=== PATIENT | female | born 1935 | race Caucasian/White ===

== ENCOUNTER 2021-05-11 00:03 | Inpatient (IN) | payer MEDICARE, OTHER, SELFPAY ==
[2021-05-10 22:27] VITALS: BP 141/98; PULSE 115; RESP 20; TEMP 36.9; O2SAT 97; BMI 30.4
--- NOTE | 2021-05-10 23:44 | EKG12_ITS ---
Test Reason : DYSRHYTHMIA Blood Pressure : / mmHG Vent. Rate : 126 BPM Atrial Rate : 096 BPM P-R Int : 000 ms QRS Dur : 090 ms QT Int : 316 ms P-R-T Axes : 000 067 -51 degrees QTc Int : 457 ms Atrial fibrillation Abnormal ECG Confirmed by ENIO ZAPIEN, MARK ANTHONY ([id number]), editorial cartoonist HARRIET CALDERON ([id number]) on 05/13/2021 11:03:22 AM Referred By: LILIAM Confirmed By:MARK ANTHONY STEEN MD
--- NOTE | 2021-05-10 23:54 | HP.PCM.HOS_ITS ---
HPI - General General Date of Admission: 05/10/21 HPI Narrative MYAH SOLOMON, is a 85 F is direct admit from [facility] for right hip fracture. Patient fell down on her right side while trying to get out of bed and had severe pain in the right hip area. She was taken to [facility] where she was found to have a right hip intertrochanteric fracture. Patient complained of severe pain over right hip area and its look swollen. Right lower extremity is externally rotated and shortened. Patient denies any previous history of hip or knee fracture or dislocation. Patient has history of A. fib and currently RVR at 140/min. In [facility], EKG showed A. fib with heart rate in the mid 90s. Afebrile. Basic blood work from [facility] reviewed and remarkable abnormal blood sugar 149. Patient is on Xarelto and INR is slightly elevated 1.4. Last dose of Xarelto in the morning today. Chest x-ray portable was done in the ER but report unavailable [facility] Home Medications atorvastatin 40 mg PO QHS 02/07/17 [History Last Taken Unknown] buprenorphine [Butrans] 10 mcg TRANSDERM. QWEEK 02/07/17 [History Last Taken Unknown] diltiazem HCl 240 mg PO DAILY 02/07/17 [History Last Taken Unknown] levetiracetam 500 mg PO BID 02/07/17 [History Last Taken Unknown] rivaroxaban [Xarelto] 20 mg PO DAILY 02/07/17 [History Last Taken Unknown] cholecalciferol (vitamin D3) [Vitamin D3] 25 mcg PO DAILY 05/10/21 [History Last Taken Unknown] furosemide 20 mg PO DAILY 05/10/21 [History Last Taken Unknown] losartan 50 mg PO DAILY 05/10/21 [History Last Taken Unknown] multivitamin,[id number] 1 tab PO DAILYCM 05/10/21 [History Last Taken Un known] nystatin 1 applic TOPICAL BID PRN 05/10/21 [History Last Taken Unknown] Allergy/AdvReac Type Severity Reaction Status Date / Time amiodarone Allergy Rash Verified 02/07/17 18:54 aspirin [From Percodan] Allergy Unknown Verified 02/07/17 18:54 cefdinir Allergy Rash Verified 02/07/17 18:54 ciprofloxacin [From Cipro] Allergy Hives Verified 05/10/21 22:46 ciprofloxacin HCl Allergy Unknown Verified 02/07/17 18:54 [From Cipro] ibuprofen [From Advil] Allergy Unknown Verified 02/07/17 18:54 Iodinated Contrast Media Allergy Hives Verified 05/10/21 22:42 iodine Allergy Rash Verified 02/07/17 18:54 lisinopril Allergy cough Verified 05/10/21 22:46 meperidine HCl [From Demerol] Allergy Vomiting Verified 05/10/21 22:46 methocarbamol [From Robaxin] Allergy Hives Verified 05/10/21 22:46 nitroglycerin Allergy headaches Verified 05/10/21 22:46 oxycodone HCl [From Percodan] Allergy Unknown Verified 02/07/17 18:54 oxycodone terephthalate Allergy Unknown Verified 02/07/17 18:54 [From Percodan] Penicillins Allergy Hives Verified 05/10/21 22:46 verapamil HCl [From Calan] Allergy Unknown Verified 02/07/17 18:54 cephalexin [From Keflex] AdvReac Upset Verified 05/10/21 22:46 Stomach Social History Smoking Status: Never smoker ROS ROS Narrative Constitutional: Reports fatigue and weakness, severe pain in right hip area. HEENT: Reports systems reviewed and no addt'l complaints, except as documented Respiratory/Chest: Denies chest pain, shortness of breath at rest or with exertion Gastrointestinal: Denies coffee ground emesis, hematemesis or vomiting Genitourinary: Denies burning urination or new urinary tract symptoms Musculoskeletal: Right hip severe joint pain and limited range of motion Neurologic: Denies seizure-like activity skin: No ulcer. No rash Endocrinology: Reports systems reviewed and no addt'l complaints, except as documented Hematologic/Lymphatic: Reports systems reviewed and no addt'l complaints, except as documented Rest 12 ROS are negative except as mentioned in HPI Vital Signs Vital Signs Vital Signs: 05/10/21 22:27 05/10/21 22:50 Temperature 98.5 F Temperature Source Oral Pulse Rate 115 H Respiratory Rate 20 H Respiratory Effort Normal Non-Labored Respiratory Depth Normal Respiratory Pattern Normal Blood Pressure 141/98 H Blood Pressure Mean 112 Blood Pressure Source Monitor Blood Pressure Position Semi-Fowlers Blood Pressure Location Left Arm Pulse Ox 97 Oxygen Delivery Method Nasal Cannula Nasal Cannula Oxygen Flow Rate (L/min) 2 2 Weight Weight: 156 lb 1 oz Body Mass Index (BMI) 30.4 Physical Exam Narrative General: Alert, Oriented x3, Cooperative HEENT: Atraumatic, PERRLA, EOMI, Normocephalic Oral: No Gingival or Mucosal Lesions/ Ulcerations Neck: Supple, No JVD, Negative Carotid Bruits Lungs: Air entry diminished in bilateral lung bases. No crepitation/rhonchi Cardiovascular: Regular rate, Regular Rhythm, Normal S1, Normal S2, No murmurs Abdomen: Bowel Sounds Present, Soft, Non Tender, Non-Distended : No renal angle tenderness. No suprapubic tenderness. Extremities: No edema, Capillary Refill Less than 3 Seconds Skin: No rashes, No breakdown Musculoskeletal: No Tenderness to Palpation of Joints or Extremities Neurological: Cranial nerves II-XII grossly intact, DTR 2+/4 and Symmetrical, Neuro grossly intact Psych/Mental Status: In pain. Mild forgetfulness, dementia Assessment & Plan Assessment/Plan (1) Closed intertrochanteric fracture of right hip: QUALIFIERS: Encounter type: initial encounter Fracture alignment: nondisplaced Qualified Code(s): S72.144A - Nondisplaced intertrochanteric fracture of right femur, initial encounter for closed fracture PLAN: This 85-year-old female is direct transfer below the ER for management of right hip intertrochanteric fracture. 1. Closed right hip intertrochanteric fracture: X-ray from [facility] in chart and reviewed. It is reported dorsal angulation of distal fragment of femur. [facility] physician already talked to Dr. Mendes and he accepted the patient and is consulted for the same. Hold Xarelto, last dose was today in the morning. Probably needs 48 hours of holding Xarelto prior to surgery. Pain control. PT and OT evaluation. 2. Perioperative evaluation of left hip fracture: NSQIP surgical risk calculated. Patient has limited exercise capacity and walks within and around the house, about 1000 feet. Has not climbed stairs for long time. Risk for serious complication any complication more than average. UTI above average. Discharged to SNF high. Patient had chest x-ray in [facility] will get the report. 3. Chronic A. fib with RVR: Twelve-lead EKG done here shows A. fib at 126 bpm, QTC 457 seconds. Metoprolol 5 mg IV ordered. Continue home medication Cardizem CD 240 mg daily. Metoprolol 25 mg twice daily ordered. Hold Xarelto for surgery and resume after surgery when bleeding risk is controlled. 4. Hypertension: Currently blood pressure is controlled. Glucose is 149. A1c tomorrow a.m. Patient does not have history of diabetes mellitus. 5. Other comorbidities include decreased functional capacity, degenerative arthritis of knees and dementia: Home medication reconciliation done. Living will/advanced directive/end of life care: Patient does have living will or advanced directive. Her son is power of securities attorney for health. After discussion of benefits/risks procedures involved with full code, DNR CC arrest and DNR CC, the patient elected for all possible resuscitation for 1 time but if she could not be resuscitated or prolonged, prefers DNRCC. Therefore full code. Patient does want artificial life support including intubation, tube feed, ventilator and/chest compression, central venous catheter, vasopressor and DC shock if needed Total time spent in [id number] encounter in discussion of advanced directive 16 minutes. Charges/Coding Visit Charges Inpatient E&M: 50005 Init Hosp L3 Procedures Hospitalists Procedures: 33410 Advncd Care Plan 30 Min
[2021-05-11] VITALS (16 sets, daily range): BP systolic 128–143; BP diastolic 69–98; PULSE 83–119; RESP 16–18; TEMP 36.6–37.1; O2SAT 94–100; BMI 30.4
[2021-05-11] MEDS: Morphine 2 MG/ML Syringe IV ×7 (00:44→21:45)
[2021-05-11] MEDS: Lactated Ringers 1,000 ML 100 ML IV (00:45)
[2021-05-11] MEDS: Metoprolol Tartrate 5 MG/5 ML Vial IV (00:45)
[2021-05-11] MEDS: levETIRAcetam 500 MG Tablet PO ×3 (00:45→21:45)
[2021-05-11] MEDS: 0.9% Saline Lock 10 ML Syringe IV ×4 (00:46→10:59)
[2021-05-11] MEDS: Metoprolol Tartrate 25 MG Tablet PO ×3 (00:54→21:46)
--- NOTE | 2021-05-11 04:21 | NURSING ---
late note: Contacted pt's son when pt was admitted to try to obtain history & home med list but son never returned phone call. Pt says her [id number] takes care of her.
--- NOTE | 2021-05-11 05:55 | ECHOCS_ITS ---
Reason For Study: Pre-OP Procedure This was a 2D Doppler, Color Flow transthoracic echocardiogram. The study was technically difficult. Contrast injection was performed. Exam performed portable in patient room. Left Ventricle Normal LV size. Left ventricular systolic function is normal. The estimated ejection fraction is 60 %. No regional wall motion abnormalities noted. Right Ventricle Normal RV size. Normal systolic function. Atria The left atrium is severely enlarged. The right atrium is moderately enlarged. Mitral Valve Posterior leaflet mitral valve prolapse. Moderately severe (3+) eccentric mitral valve insufficiency. Tricuspid Valve Normal tricuspid valve. Moderate (2+) tricuspid valve insufficiency. Moderate pulmonary hypertension. Pulmonary artery systolic pressure is 60 mmHg. Aortic Valve Trisinus/trileaflet aortic valve. Mild focal aortic valve calcification. Peak aortic valve gradient 21 mmHg. Mean aortic valve gradient 10 mmHg. Pulmonic Valve Normal pulmonic valve. Great Vessels Normal aortic root. The pulmonary artery is normal size. Normal inferior vena cava. Pericardium/Pleural No pericardial effusion. Medication Diluted definity 3ml given slow IV push to enhance endocardial definition. MMode/2D Measurements & Calculations LVIDd: 4.6 cm IVSd: 0.89 cm LVOT diam: 2.0 cm LVIDs: 2.9 cm LVPWd: 1.1 cm FS: 36.8 % LVOT area: 3.3 cm2 LAV(MOD-bp): 116.0 ml LA A4 area: 30.9 cm2 LA dimension(2D): 4.8 cm LAV(MOD-bp) Indexed: 69.1 ml/m2 LAV(MOD-sp2): 101.5 ml LAV(MOD-sp4): 114.5 ml RA A4 area: 22.2 cm2 Doppler Measurements & Calculations MV E max teresita: 130.3 cm/sec Ao V2 max: 227.9 cm/sec LV V1 max: 78.9 cm/sec Ao max P.8 mmHg LV V1 max P.5 mmHg Ao V2 mean: 147.2 cm/sec LV V1 mean P.3 mmHg Ao mean P.2 mmHg LV V1 mean: 52.8 cm/sec Ao V2 VTI: 44.6 cm LV V1 VTI: 16.1 cm HUMZA(I,D): 1.2 cm2 HUMZA(V,D): 1.1 cm2 MR max teresita: 477.1 cm/sec SV(LVOT): 52.5 ml PA V2 max: 64.2 cm/sec MR max P.2 mmHg TR max teresita: 373.4 cm/sec TR max P.8 mmHg ECHO/Echo Complete W/ Contrast Interpretation Summary Normal LV size. Left ventricular systolic function is normal. The estimated ejection fraction is 60 %. The left atrium is severely enlarged. Posterior leaflet mitral valve prolapse. Moderately severe (3+) eccentric mitral valve insufficiency. Moderate pulmonary hypertension. Pulmonary artery systolic pressure is 60 mmHg. Ordering Physician: Pavel Ward Referring Physician: no PCP noted Performed By: Ish Mendoza RCS
[2021-05-11 06:26] LABS: Absolute Lymphocyte Count 1.47 X10^3/uL (0.83-4.51); Absolute Neutrophil Count 4.8 X10^3/uL (2.0-7.7); Basophil# 0.02 X10^3/uL; Basophil% 0.3 % (0-1); Hematocrit 34.6 % (37-47); Hemoglobin 11.2 g/dL (12.0-15.0); Lymphocyte # 1.47 X10^3/ul (0.83-4.51); Lymphocyte % 21.3 % (19-41); Mean Corp Hgb Conc 32.4 g/dL (32-36); Mean Corpuscular Volume 105.2 fL (81-99); Mean Platelet Vol. 10.5 fl (6.2-12.0); Monocyte% 8.7 % (0-10); NRBC Flagged by Analyzer 0 % (0-5); Neutrophil # 4.79 X10^3/uL (2.7-7.7); Neutrophil % 69.3 % (47-70); Platelet Count 133 K/mm3 (150-450); RBC Distribution Width CV 12.8 % (11.6-14.6); RBC Distribution Width SD 49.4 fl (35.1-43.9); Red Blood Count 3.29 M/mm3 (4.2-5.4); White Blood Count 6.9 K/mm3 (4.4-11.0)
[2021-05-11 06:58] LABS: ALB/GLOB Ratio 0.9 RATIO (0.9-2.4); AST(SGOT) 22 U/L (15-37); Alanine Aminotransfer ALT/SGPT 21 U/L (13-56); Albumin, Serum 2.8 g/dL (3.2-5.0); Alkaline Phosphatase 49 U/L (45-117); Anion Gap 3 (5-15); BUN 21 mg/dL (7-18); BUN/Creat Ratio 29.4 RATIO (10-20); Calcium,Total 8.2 mg/dL (8.5-10.1); Chloride 108 mmol/L (98-107); Creatinine, Serum 0.72 mg/dL (0.55-1.02); EST Glomerular Filtration Rate 82 mL/min (>60); Est Glom Filt Rate - Afr Amer 100 mL/min (>60); Estimated Creatinine Clearance 29.01 ml/min; Globulin 3.1 g/dL (2.2-4.2); Glucose 125 mg/dL (74-106); Magnesium 1.7 mg/dL (1.6-2.6); Potassium 4.4 mmol/L (3.5-5.1); Protein, Total 5.9 g/dL (6.4-8.2); Sodium Level 141 mmol/L (136-145); Thyroid Stim Hormone (TSH) 0.33 uIU/mL (0.358-3.74)
--- NOTE | 2021-05-11 07:00 | RAD_ITS ---
STUDY: X-RAY CHEST REASON FOR EXAM: Female, 85 years old. Enlarged cardiomediastinal silhouette. -- Portable CXR outside faint density left CP angle TECHNIQUE: Single AP portable view of the chest. COMPARISON: Comparison is made with prior examination dated 07/05/2013. FINDINGS: EKG electrodes are seen. Stable elevation of the right hemidiaphragm. There is no demonstrated pleural abnormality. There is borderline cardiomegaly. Normal mediastinum and sarah. Normal visualized pulmonary arteries. There is atherosclerotic calcification of the aortic arch with tortuosity. There is demineralization of the osseous structures. There is degenerative osteoarthritis of the bilateral shoulders. There is no demonstrated abnormality of the visualized soft tissue structures of the upper abdomen. RAD/Chest PA and Lateral IMPRESSION: Stable elevation of the right hemidiaphragm. No acute abnormalities. Electronically Signed: Mehul Alva MD at 13:39 EDT , Service support ,
--- NOTE | 2021-05-11 07:50 | RAD_ITS ---
STUDY: X-RAY - PELVIS REASON FOR EXAM: Female, 85 years old. Fracture -- stat TECHNIQUE: One view of the pelvis was obtained. COMPARISON: None. FINDINGS: Nondisplaced comminuted right intertrochanteric fracture. RAD/Pelvis 1 or 2 Views IMPRESSION: Nondisplaced comminuted right intertrochanteric fracture. Electronically Signed: Mehul Alva MD at 9:50 EDT , Service support ,
--- NOTE | 2021-05-11 08:06 | RAD_ITS ---
STUDY: X-RAY - RIGHT FEMUR REASON FOR STUDY: Female, 85 years old. R hip fx, full length femur films TECHNIQUE: 4 view(s) of the femur. COMPARISON: None. FINDINGS: Comminuted nondisplaced intertrochanteric fracture. Soft tissue swelling. There are atherosclerotic vascular calcifications. RAD/Femur Min 2 Views IMPRESSION: Comminuted nondisplaced right intertrochanteric fracture with soft tissue swelling. Electronically Signed: Mehul Alva MD at 15:12 EDT , Service support ,
[2021-05-11 08:18] LABS: Hemoglobin A1c 5.5 % (3.8-5.6)
--- NOTE | 2021-05-11 10:39 | NURSING ---
BUTRANS PATCH DISCUSSED WITH DR WARE AND SHE WANTS IT D/C PT IS GETTING MORPHINE FOR PAIN - PATCH REMOVED AND WASTED WITH DR WARE
--- NOTE | 2021-05-11 10:47 | PCM.PN.HOSP ---
Subjective Subjective Follow-up on right hip fracture: Patient was seen and examined. Right hip pain is worse with movement. Denied any dizziness or palpitations or chest pain Objective Data Objective Data Vital Signs: Vital Signs Temp Pulse Resp BP Pulse Ox 98.3 F 102 H 18 143/91 H 100 05/11/21 08:03 05/11/21 08:03 05/11/21 08:03 05/11/21 08:03 05/11/21 08:03 Oxygen Flow Rate (L/min) 2 Oxygen Delivery Method Nasal Cannula Weight: 70.789 kg Body Mass Index (BMI) 30.4 Intake & Output: Intake and Output for Last 24 Hours 05/09/21 05/10/21 05/11/21 23:59 23:59 23:59 Output Total 500 / 500 Balance -500 / -500 Lab / Micro Data Result Diagrams: 05/11/21 06:00 05/11/21 06:00 Labs: Laboratory Results - last 24 hr 05/11/21 06:00: WBC 6.9, RBC 3.29 L, Hgb 11.2 L, Hct 34.6 L, MCV 105.2 H, MCH 34.0 H, MCHC 32.4, RDW Std Deviation 49.4 H, RDW Coeff of Tim 12.8, Plt Count 133 L, MPV 10.5, Immature Gran % (Auto) 0.400, Neut % (Auto) 69.3, Lymph % (Auto) 21.3, [place] % (Auto) 8.7, Eos % (Auto) 0.0, Baso % (Auto) 0.3, Absolute Neuts (auto) 4.8, Absolute Lymphs (auto) 1.47, Nucleated RBC % 0 05/11/21 06:00: Sodium 141, Potassium 4.4, Chloride 108 H, Carbon Dioxide 30.0, Anion Gap 3 L, BUN 21 H, Creatinine 0.72, Estim Creat Clear Calc 29.01, Est GFR (MDRD) Af Amer 100, Est GFR (MDRD) Non-Af 82, BUN/Creatinine Ratio 29.4 H, Glucose 125 H, Calcium 8.2 L, Magnesium 1.7, Total Bilirubin 1.10 H, AST 22, ALT 21, Alkaline Phosphatase 49, Total Protein 5.9 L, Albumin 2.8 L, Globulin 3.1, Albumin/Globulin Ratio 0.9, TSH 0.33 L 05/11/21 06:00: Hemoglobin A1c 5.5 05/11/21 06:00: APTT 34.0 05/11/21 06:00: Blood Type B POSITIVE, Antibody Screen NEGATIVE Physical Exam Narrative General: Alert, Oriented x3, Cooperative HEENT: Atraumatic, PERRLA, EOMI, Normocephalic Oral: Moist oral mucosa Neck: Supple, No JVD, Negative Carotid Bruits Lungs: Air entry diminished in bilateral lung bases. Cardiovascular: Regular rate, Regular Rhythm, Normal S1, Normal S2, No murmurs Abdomen: Bowel Sounds Present, Soft, Non Tender, Non-Distended Extremities: No edema, tenderness over the right hip, right hip is externally rotated, shorter Assessment & Plan Assessment/Plan (1) Closed intertrochanteric fracture of right hip: QUALIFIERS: Encounter type: initial encounter Fracture alignment: nondisplaced Qualified Code(s): S72.144A - Nondisplaced intertrochanteric fracture of right femur, initial encounter for closed fracture PLAN: 1. Acute comminuted right intertrochanteric femoral fracture, pain is fairly controlled Patient is going for surgery today. ACS NSQIP calculator reviewed showed an above average risk for planned procedure EKG shows chronic atrial fibrillation, with RVR 2. Chronic A. fib with RVR, heart rate is better controlled at time of being seen Continue on Cardizem, metoprolol Continue to hold Xarelto for surgery 3. Hypertension, controlled, continue on losartan, metoprolol, Cardizem 4. Low TSH, will check free T4 and free T3 5. Hypomagnesemia, replaced, recheck in a.m. 6. Rest of her comorbid conditions including dementia, seizure disorder, all remained stable Charges/Coding Visit Charges Inpatient E&M: 65762 Subs Hosp L2
[2021-05-11 11:32] LABS: Free T3 1.7 pg/mL (2.18-3.98); T4 Free Direct 0.99 ng/dL (0.76-1.46)
--- NOTE | 2021-05-11 12:04 | CON.PCM.OR_ITS ---
HPI Consult Data Date of Consult: 05/11/21 HPI Narrative HPI Narrative: JOSEFINA SOLOMON, is a 85 F who presents as a transfer from [place] emergency room yesterday 05/10/2021 after a fall while she was sitting at side of her bed onto her right hip side. X-rays in the emergency department revealed a right intertrochanteric proximal femur fracture. She was transferred to [facility] and admitted under the service of the hospitalist. She denies any other associated injury. Patient is on Xarelto for remote CVA in 2012. Patient denies any head injury or loss consciousness, syncope or presyncope. She denies any numbness or tingling. Patient is a household ambulator with a cane, occasional walker use. For longer distances especially outside the house she does require a wheelchair. She denies any antecedent right hip pain prior to the injury. I was asked to see Josefina by my partner Dr. Mendes to expedite her surgical fixation. Review of systems: 10 point review of systems obtained, negative unless otherwise noted in HPI. [facility] Medical History (Updated 05/11/21 @ 08:38 by Kaylee Tejada) Atrial fibrillation Chronic pain High cholesterol History of stress test Irregular heart beat Kidney stones On home oxygen therapy Osteoporosis Seizures Stroke/cerebrovascular accident Home Medications atorvastatin 40 mg PO QHS 02/07/17 [History Last Taken Unknown] buprenorphine [Butrans] 20 mcg TRANSDERM. QWEEK 02/07/17 [History Last Taken Unknown] diltiazem HCl 240 mg PO DAILY 02/07/17 [History Last Taken Unknown] levetiracetam 500 mg PO BID 02/07/17 [History Last Taken Unknown] rivaroxaban [Xarelto] 20 mg PO DAILY 02/07/17 [History Last Taken Unknown] furosemide 20 mg PO DAILY 05/10/21 [History Last Taken Unknown] losartan 50 mg PO DAILY 05/10/21 [History Last Taken Unknown] multivitamin,fm-[id number] 1 tab PO DAILYCM 05/10/21 [History Last Taken Unknown] Allergy/AdvReac Type Severity Reaction Status Date / Time amiodarone Allergy Rash Verified 02/07/17 18:54 aspirin [From Percodan] Allergy Unknown Verified 02/07/17 18:54 cefdinir Allergy Rash Verified 02/07/17 18:54 ciprofloxacin [From Cipro] Allergy Hives Verified 05/10/21 22:46 ciprofloxacin HCl Allergy Unknown Verified 02/07/17 18:54 [From Cipro] ibuprofen [From Advil] Allergy Unknown Verified 02/07/17 18:54 Iodinated Contrast Media Allergy Hives Verified 05/10/21 22:42 iodine Allergy Rash Verified 02/07/17 18:54 lisinopril Allergy cough Verified 05/10/21 22:46 meperidine HCl [From Demerol] Allergy Vomiting Verified 05/10/21 22:46 methocarbamol [From Robaxin] Allergy Hives Verified 05/10/21 22:46 nitroglycerin Allergy headaches Verified 05/10/21 22:46 oxycodone HCl [From Percodan] Allergy Unknown Verified 02/07/17 18:54 oxycodone terephthalate Allergy Unknown Verified 02/07/17 18:54 [From Percodan] Penicillins Allergy Hives Verified 05/10/21 22:46 verapamil HCl [From Calan] Allergy Unknown Verified 02/07/17 18:54 cephalexin [From Keflex] AdvReac Upset Verified 05/10/21 22:46 Stomach Surgical History (Updated 05/11/21 @ 08:38 by Kaylee Tejada) History of appendectomy S/P hysterectomy Social History Smoking Status: Never smoker Vital Signs Vital Signs Vital Signs: 05/10/21 22:27 05/10/21 22:50 05/11/21 00:22 Temperature 98.5 F Temperature Source Oral Pulse Rate 115 H 119 H Respiratory Rate 20 H Respiratory Effort Normal Non-Labored Respiratory Depth Normal Respiratory Pattern Normal Blood Pressure 141/98 H Blood Pressure Mean 112 Blood Pressure Source Monitor Blood Pressure Position Semi-Fowlers Blood Pressure Location Left Arm Pulse Ox 97 Oxygen Delivery Method Nasal Cannula Nasal Cannula Oxygen Flow Rate (L/min) 2 2 05/11/21 00:45 05/11/21 00:54 05/11/21 03:22 Temperature Temperature Source Pulse Rate 119 H 109 H 99 Respiratory Rate Respiratory Effort Respiratory Depth Respiratory Pattern Blood Pressure 141/98 H Blood Pressure Mean Blood Pressure Source Blood Pressure Position Blood Pressure Location Pulse Ox Oxygen Delivery Method Oxygen Flow Rate (L/min) 05/11/21 04:03 05/11/21 07:54 05/11/21 08:03 Temperature 98.8 F 98.3 F Temperature Source Oral Oral Pulse Rate 95 91 102 H Respiratory Rate 18 18 Respiratory Effort Respiratory Depth Respiratory Pattern Blood Pressure 134/89 H 143/91 H Blood Pressure Mean 104 108 Blood Pressure Source Monitor Monitor Blood Pressure Position Semi-Fowlers Semi-Fowlers Blood Pressure Location Right Arm Left Arm Pulse Ox 99 100 Oxygen Delivery Method Nasal Cannula Nasal Cannula Oxygen Flow Rate (L/min) 2 2 05/11/21 08:15 05/11/21 10:53 Temperature 97.8 F Temperature Source Oral Pulse Rate 94 Respiratory Rate 18 Respiratory Effort Normal Respiratory Depth Normal Respiratory Pattern Normal Blood Pressure 128/71 H Blood Pressure Mean 90 Blood Pressure Source Monitor Blood Pressure Position Semi-Fowlers Blood Pressure Location Left Arm Pulse Ox 94 Oxygen Delivery Method Nasal Cannula Nasal Cannula Oxygen Flow Rate (L/min) 2 3 Weight Weight: 156 lb 1 oz Body Mass Index (BMI) 30.4 Physical Exam Narrative General -A&Ox3, NAD, appears stated age. Vital signs stable, afebrile. Respiratory -normal work of breathing, no intercostal retractions. CV -pulses irregular, brisk capillary refill ?4 limbs. Abdomen-soft, nontender, nondistended. No guarding, rigidity, rebound tendern ess. Musculoskeletal/neurologic -full range of motion nontender throughout bilateral upper extremities, left lower extremity with full sensation and strength in all dermatomes and myotomes. No midline cervical tenderness. Right lower extremity-right lower extremity shortened, abducted, and externally rotated. Pain with logroll the right hip. Nontender throughout the right knee, femoral shaft, tibial shaft and left foot/ankle. Brisk capillary refill. Sensation intact light touch L3-S1 dermatomes. DF, PF, EHL intact. DP, PT 2+. Pelvis is stable, nontender. Skin is intact without lacerations, abrasions. No ecchymosis noted. Lab / Micro Data Result Diagrams: 05/11/21 06:00 05/11/21 06:00 Labs: Laboratory Results - last 24 hr 05/11/21 06:00: WBC 6.9, RBC 3.29 L, Hgb 11.2 L, Hct 34.6 L, MCV 105.2 H, MCH 34.0 H, MCHC 32.4, RDW Std Deviation 49.4 H, RDW Coeff of Tim 12.8, Plt Count 133 L, MPV 10.5, Immature Gran % (Auto) 0.400, Neut % (Auto) 69.3, Lymph % (Auto) 21.3, [place] % (Auto) 8.7, Eos % (Auto) 0.0, Baso % (Auto) 0.3, Absolute Neuts (auto) 4.8, Absolute Lymphs (auto) 1.47, Nucleated RBC % 0 05/11/21 06:00: Sodium 141, Potassium 4.4, Chloride 108 H, Carbon Dioxide 30.0, Anion Gap 3 L, BUN 21 H, Creatinine 0.72, Estim Creat Clear Calc 29.01, Est GFR (MDRD) Af Amer 100, Est GFR (MDRD) Non-Af 82, BUN/Creatinine Ratio 29.4 H, Glucose 125 H, Calcium 8.2 L, Magnesium 1.7, Total Bilirubin 1.10 H, AST 22, ALT 21, Alkaline Phosphatase 49, Total Protein 5.9 L, Albumin 2.8 L, Globulin 3.1, A lbumin/Globulin Ratio 0.9, TSH 0.33 L 05/11/21 06:00: Hemoglobin A1c 5.5 05/11/21 06:00: APTT 34.0 05/11/21 06:00: Blood Type B POSITIVE, Antibody Screen NEGATIVE 05/11/21 06:00: Free T4 0.99, Free T3 pg/dL 1.7 L X-rays reviewed from outside hospital and obtained right femur films multiple views from [facility] 05/11/2021. Agree with radiology interpretation. Per my interpretation, patient has a comminuted right intertrochanteric proximal femur fracture in varus alignment, shortened, and externally rotated. No subtrochanteric propagation. Remainder of the femoral shaft is unremarkable. Soft tissues are unremarkable. Assessment & Plan Assessment/Plan (1) Closed intertrochanteric fracture of right hip: QUALIFIERS: Encounter type: initial encounter Fracture alignment: nondisplaced Qualified Code(s): S72.144A - Nondisplaced intertrochanteric fracture of right femur, initial encounter for closed fracture PLAN: Patient has a closed, displaced, comminuted intertrochanteric proximal femur fracture of the right femur. Closed injury, neurovascularly intact. Plan for operative intervention in the form of right femur cephalomedullary n ailing tomorrow 05/12/2021 with myself. Holding Xarelto. Would recommended waiting 48 hours from last dose, which would put us at 05/12/2021 for surgical intervention. The risks, benefits, and alternatives to the procedure including but not limited to bleeding, infection, loss of life or limb, risk of anesthesia, malunion, nonunion, hardware failure, persistent disability, VTE, wound complications were reviewed with the patient. She expressed verbal understanding. Informed consent obtained. Informed consent for blood transfusion was also obtained. Plan to proceed with surgical fixation tomorrow 05/12/2021. Pain control, bedrest Clindamycin 900 mg on-call to the OR for preoperative antibiotics Type and screen N.p.o. after midnight Thank you for the consultation. Will continue to follow in the acute postoperative period. (2) Hypertension: (3) Anxiety: (4) Hyperlipidemia:
--- NOTE | 2021-05-11 12:15 | CASEMGMT ---
RN CM Face to Face with patient for initial transition planning/care coordination assessment. RN CM introduced self and role at [facility]. Patient lying in bed, alert and oriented, family at bedside. Patient willing to participate in assessment and is able to answer all questions appropriately. Care providers, pharmacy, and demographics verified. Patient wishes to discharge home if able but willing to go to rehab unit if needed. SW updated. Patient states she has no further needs or concerns at this time. CM to follow for discharge planning needs that may arise. PCP: Chidi Orlando Specialists: Jamel, cardiovascular surgeon; Hilary, neurologist; bartolo Nance [facility] Pres[facility] Benefit: yes Living Will/HPOA: Tony Martinez HPOA LNOK: DONAVAN house Living Arrangements: Patient lives with son and DONAVAN in a single story home, 2 steps and railing to enter the home. Patient states she was independent at home. Transportation: [place] [employer] DME/HHC: Patient has cane, walker, raised toilet, shower chair, grab bars, oxygen concentrator through [facility] at home. Patient has previously been to rehab unit. Disposition Plan: TBD, HHC vs RU, pending course of treatment and progress with therapy. Aleena DARBYN, RN, CM
[2021-05-11] MEDS: Senna/Docusate Sodium 1 Tablet 2 TABLET PO ×2 (13:38→21:46)
[2021-05-11] MEDS: Losartan Potassium 50 MG Tablet PO (13:42)
[2021-05-11] MEDS: Furosemide 20 MG Tablet PO (13:42)
[2021-05-11] MEDS: Cholecalciferol (VIT D3) 25 MCG TABLET (1,000 UNITS) PO (13:42)
--- NOTE | 2021-05-11 15:00 | CASEMGMT ---
Social Work Note SW updated that pt is agreeable to [facility] RU. REGINA placed a call to Leslie with RU and provided referral. Leslie states physician would like to see how pt does with PT/OT after surgery. Pt is not having surgery until tomorrow. SW to continue to follow. Plan: TBD. RU vs SNF Aleena Baker VAT CLEANER, MERCHANDISER
[2021-05-11] MEDS: dilTIAZem CD 240 MG Capsule PO (16:54)
[2021-05-11] MEDS: Heparin Injection (Vial) 5,000 UNIT/ML VIAL 5000 UNIT SC ×2 (16:57→21:46)
--- NOTE | 2021-05-11 19:35 | NURSING ---
emergency documentation effective now
[2021-05-11] MEDS: Atorvastatin Calcium 40 MG Tablet PO (21:45)
[2021-05-12] VITALS (26 sets, daily range): BP systolic 76–121; BP diastolic 48–71; PULSE 70–96; RESP 16–18; TEMP 36.2–37; O2SAT 77–100; BMI 30.4
[2021-05-12 06:11] LABS: Absolute Lymphocyte Count 1.51 X10^3/uL (0.83-4.51); Absolute Neutrophil Count 4.6 X10^3/uL (2.0-7.7); Basophil# 0.02 X10^3/uL; Basophil% 0.3 % (0-1); Eosinophil# 0.05 X10^3/uL; Eosinophils% 0.8 % (0-5); Hematocrit 32.3 % (37-47); Hemoglobin 10.5 g/dL (12.0-15.0); Lymphocyte # 1.51 X10^3/ul (0.83-4.51); Lymphocyte % 22.7 % (19-41); Mean Corp Hgb Conc 32.5 g/dL (32-36); Mean Corpuscular Hgb 34.5 pg (27.0-32.0); Mean Corpuscular Volume 106.3 fL (81-99); Mean Platelet Vol. 10.6 fl (6.2-12.0); Monocyte# 0.51 X10^3/uL; Monocyte% 7.7 % (0-10); NRBC Flagged by Analyzer 0 % (0-5); Neutrophil # 4.55 X10^3/uL (2.7-7.7); Neutrophil % 68.2 % (47-70); Platelet Count 120 K/mm3 (150-450); RBC Distribution Width CV 12.7 % (11.6-14.6); RBC Distribution Width SD 49.8 fl (35.1-43.9); Red Blood Count 3.04 M/mm3 (4.2-5.4); White Blood Count 6.7 K/mm3 (4.4-11.0)
[2021-05-12 06:45] LABS: ALB/GLOB Ratio 0.9 RATIO (0.9-2.4); AST(SGOT) 23 U/L (15-37); Alanine Aminotransfer ALT/SGPT 20 U/L (13-56); Albumin, Serum 2.7 g/dL (3.2-5.0); Alkaline Phosphatase 44 U/L (45-117); Anion Gap 5 (5-15); BUN 17 mg/dL (7-18); BUN/Creat Ratio 26.7 RATIO (10-20); Calcium,Total 8.1 mg/dL (8.5-10.1); Chloride 104 mmol/L (98-107); Creatinine, Serum 0.64 mg/dL (0.55-1.02); EST Glomerular Filtration Rate 94 mL/min (>60); Est Glom Filt Rate - Afr Amer 114 mL/min (>60); Estimated Creatinine Clearance 29.01 ml/min; Globulin 3.1 g/dL (2.2-4.2); Glucose 123 mg/dL (74-106); Magnesium 1.8 mg/dL (1.6-2.6); Potassium 3.6 mmol/L (3.5-5.1); Protein, Total 5.8 g/dL (6.4-8.2); Sodium Level 138 mmol/L (136-145)
[2021-05-12] MEDS: levETIRAcetam 500 MG Tablet PO ×2 (09:16→21:25)
--- NOTE | 2021-05-12 11:07 | PN.ORTHO_ITS ---
Subjective Subjective Patient seen and examined. Denies any new complaints. All questions regarding surgery. Denies any fevers, chills, nausea vomiting, chest pain or shortness of breath. N.p.o. since midnight. Objective Data Objective Data Vital Signs: Vital Signs Temp Pulse Resp BP Pulse Ox 98.0 F 80 18 117/64 98 05/12/21 09:22 05/12/21 09:22 05/12/21 09:22 05/12/21 09:22 05/12/21 09:22 Oxygen Flow Rate (L/min) 2 Oxygen Delivery Method Nasal Cannula Weight: 156 lb 1 oz Body Mass Index (BMI) 30.4 Intake & Output: Intake and Output for Last 24 Hours 05/10/21 05/11/21 05/12/21 23:59 23:59 23:59 Intake Total 1798.25 / 1798.25 145.75 / 145.75 Output Total 2024 / 2024 100 / 100 Balance -226.75 / -226.75 45.75 / 45.75 Lab / Micro Data Result Diagrams: 05/12/21 05:34 05/12/21 05:34 Labs: Laboratory Results - last 24 hr 05/11/21 06:00: Free T4 0.99, Free T3 pg/dL 1.7 L 05/12/21 05:34: WBC 6.7, RBC 3.04 L, Hgb 10.5 L, Hct 32.3 L, MCV 106.3 H, MCH 34.5 H, MCHC 32.5, RDW Std Deviation 49.8 H, RDW Coeff of Tim 12.7, Plt Count 120 L, MPV 10.6, Immature Gran % (Auto) 0.300, Neut % (Auto) 68.2, Lymph % (Auto) 22.7, [place] % (Auto) 7.7, Eos % (Auto) 0.8, Baso % (Auto) 0.3, Absolute Neuts (auto) 4.6, Absolute Lymphs (auto) 1.51, Nucleated RBC % 0 05/12/21 05:34: Sodium 138, Potassium 3.6, Chloride 104, Carbon Dioxide 29.0, Anion Gap 5, BUN 17, Creatinine 0.64, Estim Creat Clear Calc 29.01, Est GFR (MDRD) Af Amer 114, Est GFR (MDRD) Non-Af 94, BUN/Creatinine Ratio 26.7 H, Glucose 123 H, Calcium 8.1 L, Magnesium 1.8, Total Bilirubin 1.20 H, AST 23, ALT 20, Alkaline Phosphatase 44 L, Total Protein 5.8 L, Albumin 2.7 L, Globulin 3.1, Albumin/Globulin Ratio 0.9 Radiography Diagnostic Testing: Radiology Impression Echocardiogram 05/11/21 05:55 Interpretation Summary Normal LV size. Left ventricular systolic function is normal. The estimated ejection fraction is 60 %. The left atrium is severely enlarged. Posterior leaflet mitral valve prolapse. Moderately severe (3+) eccentric mitral valve insufficiency. Moderate pulmonary hypertension. Pulmonary artery systolic pressure is 60 mmHg. Ordering Physician: Pavel Ward Referring Physician: no PCP noted Performed By: Ish Mendoza RCS Chest X-Ray 05/11/21 07:00 IMPRESSION: Stable elevation of the right hemidiaphragm. No acute abnormalities. Electronically Signed: Mehul Alva MD at 13:39 EDT , Service support , Pelvis X-Ray 05/11/21 07:50 IMPRESSION: Nondisplaced comminuted right intertrochanteric fracture. Electronically Signed: Mehul Alva MD at 9:50 EDT , Service support , Femur X-Ray 05/11/21 08:06 IMPRESSION: Comminuted nondisplaced right intertrochanteric fracture with soft tissue swelling. Electronically Signed: Mehul Alva MD at 15:12 EDT , Service support , Physical Exam Narrative General - A&Ox3, NAD. VSS/AF Right lower extremity -right lower extremity shortened, externally rotated, abducted. SILT Sural, Saphenous, SPN, DPN, Tibial N. distributions. DP, PT 2+. BCR. DF, PF, EHL /. No calf TTP. Assessment & Plan Assessment/Plan (1) Closed intertrochanteric fracture of right hip: QUALIFIERS: Encounter type: initial encounter Fracture alignment: nondisplaced Qualified Code(s): S72.144A - Nondisplaced intertrochanteric fracture of right femur, initial encounter for closed fracture PLAN: N.p.o., informed consent obtained and placed in the chart. Clindamycin ordered preop, type and screen ordered. We again reviewed the procedure, all questions were answered to patient's satisfaction. Further recommendations pending postop.
--- NOTE | 2021-05-12 11:07 | CASEMGMT ---
Social Work Note REGINA spoke with Leslie with TCU/RU, pt is more appropriate for TCU not RU. Pt having surgery today. REGINA will follow up with pt tomorrow. Plan: GEENA Baker MULTIPLEX OPERATOR, COMBUSTION ANALYST
--- NOTE | 2021-05-12 11:35 | RAD_ITS ---
STUDY: X-RAY - PELVIS AND RIGHT HIP REASON FOR EXAM: Female, 85 years old. IM RODDING, INTERTAN NAIL GARCIA AND NEPHEW TECHNIQUE: 3 views of the pelvis and hip intraoperatively. COMPARISON: None. FINDINGS: Intraoperative imaging provided for intramedullary flakito fixation and screw fixation of the intertrochanteric fracture. There is good alignment. RAD/Hip Min 2 Views (Portable) IMPRESSION: Status post ORIF of the right intertrochanteric fracture. There is good alignment. Electronically Signed: Mehul Alva MD at 15:44 EDT , Service support ,
--- NOTE | 2021-05-12 12:46 | OP.PCM_ITS ---
Report of Operation Date of Procedure: 05/12/21 Description of Surgical Findings:: Preoperative diagnosis: Right comminuted intertrochanteric proximal femur fracture Postoperative diagnosis: Right comminuted intertrochanteric proximal femur fracture Procedure: Treatment of intertrochanteric hip fracture with intramedullary nail right femur Surgeon: Abdullahi Lee DO Anesthesia: General LMA Anesthesiologist: Dr. Drummond Complications: None apparent Drains: None Estimated blood loss: 250 cc Urinary output: Minimal cc IV fluids: 600 cc crystalloid Specimens: None Indications: This is an 85-year-old female who sustained a ground-level fall onto her right side, mechanical nature while she was sitting on side of her bed. She denies any presyncopal or syncopal episodes. Denies loss consciousness or head trauma. She was brought to the [place] emergency department on 05/10/2021 where x-rays at that time revealed a right intertrochanteric proximal femur fracture. Patient was then transferred to [facility] for definitive fixation of her hip fracture. My partner, Dr. Mendes, was director [facility] and agreed to see the patient. She was admitted under the service of the hospitalist. To expedite her surgery, my partner Dr. Mendes, asked me to see the patient due to surgeon availability. Patient does take Xarelto for a remote CVA. Her last dose was 05/10/2021 morning time. We decided to wait 48 hours to safely perform cephalomedullary nailing of the right femur. I reviewed the pro cedure with the patient and her family who are at bedside. We discussed the risks, benefits, and alternatives procedure. The risks include but are not limited to bleeding, infection, malunion, nonunion, failure of orthopedic hardware, need for additional surgery, persistent pain, persistent disability, need for additional assistive devices postoperatively, neurovascular injury, risk of anesthesia, loss of life or limb. Informed consent was obtained and patient agreed to proceed. Surgical implants: [employer] TriGen InterTAN 10 mm x 18 cm 125 degree right, 95 mm lag screw, 90 mm compression screw, TriGen L-P screw 35 mm Description of procedure: Prior to the procedure, patient was brought to the preoperative holding area where patient was identified by name, medical record number and date of . I confirmed the side, site, operation to be performed with the patient. Informed consent was confirmed, All questions were answered to patient satisfaction. The operative extremity was marked. She was also seen by anesthesia staff and anesthesia consent obtained. At time of the operative procedure, pt was brought to the operative suite. General anesthesia was induced on the hospital bed and LMA placed. After adequate anesthesia and securing the tube, patient was then positioned supine on a fracture table. The operative foot was well-padded and placed in a ski boot attached to the traction unit on the fracture table. The non operative leg was well padded, extended and secured to the axial bar of the table. A well-padded perineal post was placed and the right upper extremity was brought across patient's torso and secured. A reduction maneuver was applied to the operative leg with traction, internal rotation, adduction. Fluoroscopy was used to confirm an appropriate reduction. After close reduction, this confirmed to me that this appears to be stable intertrochanteric proximal femur fracture pattern allowing for a short cephalomedullary nail fixation strategy. We then prepped and draped the operative lower extremity of normal sterile orthopedic fashion. A timeout was performed with all parties in attendance in agreement of the side, site, operation to be performed. We elected to proceed. 900 mg clindamycin was administered prior to incision by the anesthesia staff. Fluoroscopy was used to confirm the level of the incision approximately 4 fingerbreadths proximal to the tip of the greater trochanter in line with the femoral shaft. We sharply incised the skin with a 10 blade scalpel carried an incision sharply through the subcutaneous tissue past the IT band to the level of the greater trochanter. A starting pin was utilized and under fluoroscopic guidance placed at the tip of the greater trochanter in line with the femoral shaft on the lateral view. We then, on power, passed the guidepin into the intramedullary canal. A opening reamer was then placed over top of the guide pin and soft tissue protector placed. We utilized the opening reamer to establish entry into the intramedullary canal. The guide pin was removed. We chose our final nail to be 10 mm x 18 cm 125 degrees on the right. The nail was assembled on the back table. The nail was then placed through the most proximal wound into the entry hole previously opened. We impacted the nail to an appropriate depth. The targeting guide for the lag screw and compression screw was attached to the handle of the nail. Skin was sharply incised on the lateral thigh and the targeting sleeve placed down to bone. The drill pin for the leg screw was then directed into the femoral head to a level less than 25 mm tip to apex distance on the AP and lateral projections. An appropriately sized lag screw of 95 mm was measured . We then reamed for the compression screw past the level of the fracture. A derotation bar was placed and we inserted the cannulated 95 mm lag screw over the drill pin. We again confirmed appropriate placement on fluoroscopy. The compression screw was then placed under power and tightened under with a manual local company hazmat driver after traction removed from the left lower extremity. We used fluoroscopy to view the amount of compression across the fracture site. After maxing out the compression, we were content with our reduction and elected to proceed with interlocking screw placement. The drill sleeve was removed as well as the guidepin. We then made a lateral thigh incision for the interlocking screw through the static slot of the nail. The femur was then drilled bicortically through the isthmus and we measured 35 mm for an appropriately sized dynamic interlocking screw. The drill was then removed and we placed the 35 mm screw with good cortical fixation. Final fluoroscopic images were obtained. Wounds were copiously irrigated with normal saline solution. Deep tissues were closed with 0 Vicryl suture and subcutaneous tissue closed with 2-0 Vicryl suture. Skin was finally closed with bradley. Sterile compression dressings were applied to the wounds. Patient was then taken out of traction entirely and removed from both traction boot and well leg goff. Patient was transferred back to his hospital bed in stable condition and extubated safely in the operative suite. Patient was then transferred to PACU in stable condition. Post Operative Plan: Weightbearing: Weightbearing as tolerated right lower extremity Antibiotics: Clindamycin 600 mg x 3 doses DVT Prophylaxis: Plan to restart Xarelto tomorrow morning [place]: Okay to remove from my perspective on postoperative day #1, defer to hospitalist Dressing: Dry sterile dressing changes as needed for saturation and daily X-Rays: We will obtain in office at 2-week follow-up Pain Medication: Prescription for Heath sent to patient pharmacy Follow-up: Follow-up with myself in 2 weeks for wound check and x-rays
--- NOTE | 2021-05-12 13:24 | PCM.PN.HOSP ---
Subjective Subjective Patient was seen and examined. Patient was sitting up in a chair having her dinner. Her pain is fairly controlled Objective Data Objective Data Vital Signs: Vital Signs Temp Pulse Resp BP Pulse Ox 97.6 F L 70 16 121/71 H 100 05/12/21 12:30 05/12/21 12:30 05/12/21 12:30 05/12/21 12:30 05/12/21 12:30 Oxygen Flow Rate (L/min) 2 Oxygen Delivery Method Room Air Weight: 70.789 kg Body Mass Index (BMI) 30.4 Intake & Output: Intake and Output for Last 24 Hours 05/10/21 05/11/21 05/12/21 23:59 23:59 23:59 Intake Total 1798.25 / 1798.25 251.75 / 251.75 Output Total 2024 / 2024 100 / 100 Balance -226.75 / -226.75 151.75 / 151.75 Lab / Micro Data Result Diagrams: 05/12/21 05:34 05/12/21 05:34 Labs: Laboratory Results - last 24 hr 05/12/21 05:34: WBC 6.7, RBC 3.04 L, Hgb 10.5 L, Hct 32.3 L, MCV 106.3 H, MCH 34.5 H, MCHC 32.5, RDW Std Deviation 49.8 H, RDW Coeff of Tim 12.7, Plt Count 120 L, MPV 10.6, Immature Gran % (Auto) 0.300, Neut % (Auto) 68.2, Lymph % (Auto) 22.7, [place] % (Auto) 7.7, Eos % (Auto) 0.8, Baso % (Auto) 0.3, Absolute Neuts (auto) 4.6, Absolute Lymphs (auto) 1.51, Nucleated RBC % 0 05/12/21 05:34: Sodium 138, Potassium 3.6, Chloride 104, Carbon Dioxide 29.0, Anion Gap 5, BUN 17, Creatinine 0.64, Estim Creat Clear Calc 29.01, Est GFR (MDRD) Af Amer 114, Est GFR (MDRD) Non-Af 94, BUN/Creatinine Ratio 26.7 H, Glucose 123 H, Calcium 8.1 L, Magnesium 1.8, Total Bilirubin 1.20 H, AST 23, ALT 20, Alkaline Phosphatase 44 L, Total Protein 5.8 L, Albumin 2.7 L, Globulin 3.1, Albumin/Globulin Ratio 0.9 Radiography Diagnostic Testing: Radiology Impression Echocardiogram 05/11/21 05:55 Interpretation Summary Normal LV size. Left ventricular systolic function is normal. The estimated ejection fraction is 60 %. The left atrium is severely enlarged. Posterior leaflet mitral valve prolapse. Moderately severe (3+) eccentric mitral valve insufficiency. Moderate pulmonary hypertension. Pulmonary artery systolic pressure is 60 mmHg. Ordering Physician: Pavel Ward Referring Physician: no PCP noted Performed By: Ish Mendoza RCS Chest X-Ray 05/11/21 07:00 IMPRESSION: Stable elevation of the right hemidiaphragm. No acute abnormalities. Electronically Signed: Mehul Alva MD at 13:39 EDT , Service support , Pelvis X-Ray 05/11/21 07:50 IMPRESSION: Nondisplaced comminuted right intertrochanteric fracture. Electronically Signed: Mehul Alva MD at 9:50 EDT , Service support , Femur X-Ray 05/11/21 08:06 IMPRESSION: Comminuted nondisplaced right intertrochanteric fracture with soft tissue swelling. Electronically Signed: Mehul Alva MD at 15:12 EDT , Service support , Physical Exam Narrative General: Alert, Oriented x3, Cooperative, on 2L oxygen HEENT: Atraumatic, PERRLA, EOMI, Normocephalic Oral: Moist oral mucosa Neck: Supple, No JVD, Negative Carotid Bruits Lungs: Air entry diminished in bilateral lung bases. Cardiovascular: Regular rate, Regular Rhythm, Normal S1, Normal S2, No murmurs Abdomen: Bowel Sounds Present, Soft, Non Tender, Non-Distended Extremities: No edema, tenderness over the right hip, dressing is intact Assessment & Plan Assessment/Plan (1) Closed intertrochanteric fracture of right hip: QUALIFIERS: Encounter type: initial encounter Fracture alignment: nondisplaced Qualified Code(s): S72.144A - Nondisplaced intertrochanteric fracture of right femur, initial encounter for closed fracture PLAN: 1. POD #0, s/p right hip replacement for acute comminuted right intertrochanteric femoral fracture, pain is fairly controlled Pain is fairly controlled, continue with pain control 2. Chronic A. fib with RVR, heart rate is better controlled at time of being seen Continue on Cardizem, metoprolol Continue to hold Xarelto for surgery 3. Hypertension, controlled, continue on losartan, metoprolol, Cardizem 4. 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 5. Hypomagnesemia, replaced 6. Rest of her comorbid conditions including dementia, seizure disorder, all remained stable Charges/Coding Visit Charges Inpatient E&M: 79592 Subs Hosp L2
[2021-05-12] MEDS: Cholecalciferol (VIT D3) 25 MCG TABLET (1,000 UNITS) PO (15:41)
[2021-05-12] MEDS: Senna/Docusate Sodium 1 Tablet 2 TABLET PO ×2 (15:41→21:25)
[2021-05-12] MEDS: Acetaminophen 500 MG Tablet 1000 MG PO ×2 (15:46→21:25)
[2021-05-12] MEDS: oxyCODONE 5 MG Tablet PO (17:12)
[2021-05-12] MEDS: Rivaroxaban 20 MG Tablet PO (17:12)
[2021-05-12] MEDS: 0.9% Normal Saline 1,000 ML 100 ML IV (20:26)
[2021-05-12] MEDS: Atorvastatin Calcium 40 MG Tablet PO (21:24)
[2021-05-13] VITALS (9 sets, daily range): BP systolic 103–116; BP diastolic 61–69; PULSE 77–94; RESP 18; TEMP 36.6–37; O2SAT 94–100
[2021-05-13] MEDS: Acetaminophen 500 MG Tablet 1000 MG PO ×2 (05:58→13:36)
[2021-05-13] MEDS: 0.9% Normal Saline 1,000 ML 100 ML IV (05:58)
[2021-05-13 08:17] LABS: Absolute Lymphocyte Count 0.71 X10^3/uL (0.83-4.51); Absolute Neutrophil Count 4.7 X10^3/uL (2.0-7.7); Hematocrit 26.5 % (37-47); Hemoglobin 8.4 g/dL (12.0-15.0); Lymphocyte # 0.71 X10^3/ul (0.83-4.51); Lymphocyte % 12.1 % (19-41); Mean Corp Hgb Conc 31.7 g/dL (32-36); Mean Corpuscular Hgb 33.7 pg (27.0-32.0); Mean Corpuscular Volume 106.4 fL (81-99); Mean Platelet Vol. 10.7 fl (6.2-12.0); Monocyte# 0.45 X10^3/uL; Monocyte% 7.7 % (0-10); NRBC Flagged by Analyzer 0 % (0-5); Neutrophil # 4.67 X10^3/uL (2.7-7.7); Neutrophil % 79.9 % (47-70); Platelet Count 103 K/mm3 (150-450); RBC Distribution Width CV 12.6 % (11.6-14.6); RBC Distribution Width SD 49.4 fl (35.1-43.9); Red Blood Count 2.49 M/mm3 (4.2-5.4); White Blood Count 5.9 K/mm3 (4.4-11.0)
[2021-05-13 08:33] LABS: ALB/GLOB Ratio 0.7 RATIO (0.9-2.4); AST(SGOT) 24 U/L (15-37); Alanine Aminotransfer ALT/SGPT 19 U/L (13-56); Albumin, Serum 2.2 g/dL (3.2-5.0); Alkaline Phosphatase 37 U/L (45-117); Anion Gap 5 (5-15); BUN 21 mg/dL (7-18); BUN/Creat Ratio 31.7 RATIO (10-20); Calcium,Total 7.9 mg/dL (8.5-10.1); Chloride 110 mmol/L (98-107); Creatinine, Serum 0.66 mg/dL (0.55-1.02); EST Glomerular Filtration Rate 90 mL/min (>60); Est Glom Filt Rate - Afr Amer 109 mL/min (>60); Estimated Creatinine Clearance 29.01 ml/min; Globulin 3.2 g/dL (2.2-4.2); Glucose 139 mg/dL (74-106); Potassium 4.1 mmol/L (3.5-5.1); Protein, Total 5.4 g/dL (6.4-8.2); Sodium Level 141 mmol/L (136-145)
[2021-05-13] MEDS: Metoprolol Tartrate 25 MG Tablet PO (10:07)
[2021-05-13] MEDS: Senna/Docusate Sodium 1 Tablet 2 TABLET PO (10:08)
[2021-05-13] MEDS: Furosemide 20 MG Tablet PO (10:08)
[2021-05-13] MEDS: levETIRAcetam 500 MG Tablet PO (10:08)
[2021-05-13] MEDS: Multivitamins,Ther W-Minerals Tablet 1 TABLET PO (10:08)
[2021-05-13] MEDS: Cholecalciferol (VIT D3) 25 MCG TABLET (1,000 UNITS) PO (10:08)
[2021-05-13] MEDS: dilTIAZem CD 240 MG Capsule PO (10:09)
[2021-05-13] MEDS: Losartan Potassium 50 MG Tablet PO (10:09)
--- NOTE | 2021-05-13 10:22 | CASEMGMT ---
Addendum entered by Sharon Frazier 05/13/21 11:17: SW received a message back from pt's daughter in law stating that pt's son is agreeable for pt to go to TCU at discharge. SW let physician know. MERCEDEZ Farley Original Note: Pt is not accepted into rehab as per Leslie but can go to TCU. SW spoke w/pt, explained to her the two levels of care, an that pt is not accepted into rehab but would be able to go to TCU. Pt is agreeable, she asked SW to call her son. SW called son, daughter in law(who is also listed as a contact for pt) answered. SW reviewed w/her that pt is not accepted into rehab but can go to TCU. SW reviewed the two levels of care, and reviewed how TCU would be covered by Medicare. She states that the other nursing homes she is familiar with they would not want, so thinks TCU would be good. SW did explain the average length of stay in TCU is 30 days or less, so if pt needed more time the SW in TCU would work with them to transfer her to a SNF in the community. Daughter in law states understanding. DIL is going to call pt's son to make sure he is agreeable to this also and will call SW back. MERCEDEZ Farley
--- NOTE | 2021-05-13 11:39 | TREXTCAR_ITS ---
Diet 05/12/21 15:49 Diet: Regular - Cardiac diet Is pt able to select menu?: Yes Diet Comments: CLD progress to regular diet as tolerated Routine Orders/Code Status O2 Liters per Minute: 2 O2 Frequency: Continuous Keep PO Greater than or Equal to (%): 94 Routine Lab Work: CBC (within 3 days) and BMP (within 3 days) Code Status: Full Code Wound(s) left hand: Wound Type: Skin Tear RT HIP: Wound Type: Surgical Incision Therapies Weight Bearing: Weight bearing as tolerated Problem/Diagnosis (1) Closed intertrochanteric fracture of right hip: Status: Acute Allergies/Procedures Done in Hospital Allergies amiodarone Allergy (Verified 02/07/17 18:54) Rash aspirin [From Percodan] Allergy (Verified 02/07/17 18:54) Unknown cefdinir Allergy (Verified 02/07/17 18:54) Rash ciprofloxacin [From Cipro] Allergy (Verified 05/10/21 22:46) Hives ciprofloxacin HCl [From Cipro] Allergy (Verified 02/07/17 18:54) Unknown ibuprofen [From Advil] Allergy (Verified 02/07/17 18:54) Unknown Iodinated Contrast Media Allergy (Verified 05/10/21 22:42) Hives iodine Allergy (Verified 02/07/17 18:54) Rash lisinopril Allergy (Verified 05/10/21 22:46) cough meperidine HCl [From Demerol] Allergy (Verified 05/10/21 22:46) Vomiting methocarbamol [From Robaxin] Allergy (Verified 05/10/21 22:46) Hives nitroglycerin Allergy (Verified 05/10/21 22:46) headaches nitrate analogues oxycodone HCl [From Percodan] Allergy (Verified 02/07/17 18:54) Unknown oxycodone terephthalate [From Percodan] Allergy (Verified 02/07/17 18:54) Unknown Penicillins Allergy (Verified 05/10/21 22:46) Hives verapamil HCl [From Calan] Allergy (Verified 02/07/17 18:54) Unknown cephalexin [From Keflex] Adverse Reaction (Verified 05/10/21 22:46) Upset Stomach Procedures: 2-D Echocardiogram Type of Care/Length of Stay Estimated LOS: Convalescent Care Less Than 30 days Type of Care Needed: Skilled Rehab Potential: Fair Prognosis: Fair Additional Orders/Day of Discharge Day of Discharge: 05/13/21 Dietary and Speech Recommendations Dietitian Recommendations/Changes: Suggest advanced diet to Cardiac when ready for PO. Will offer ONS as needed. Discharge Plan Admission Admit Date/Time: 05/11/21 00:03 Primary Reason for Your Visit: Acute right hip fracture Attending Provider: Shamika Blankenship Primary Care Provider: Care Physician,No Primary Consulting Providers: Brad Mendes Instructions Additional Instructions / Restrictions: Wound care to right thigh-dry sterile dressing changes daily and as needed for saturation. Okay to shower on postoperative day #4, no tub soaks. Weightbearing as tolerated right lower extremity. Discharge Orders/Prescriptions Prescriptions: New hydrocodone-acetaminophen 5-325 mg tablet 1 tab PO Q6H PRN (Reason: pain) 7 Days Qty: 28 RF: 0 acetaminophen 500 mg Tablet 1,000 mg PO Q8 Qty: 0 RF: 0 nystatin 100,000 unit/gram Ointment 1 applic topical BID PRN PRN (Reason: skin issues) Qty: 0 RF: 0 sennosides-docusate sodium [Stool Softener-Stimulant Laxat] 8.6-50 mg Tablet 2 tab PO BID Qty: 0 RF: 0 metoprolol tartrate 25 mg Tablet 25 mg PO BID 60 Days Qty: 0 RF: 0 oxycodone 5 mg Tablet 5 mg PO Q4H PRN PRN (Reason: Pain Score 4-5) 3 Days Qty: 12 RF: 0 Continued levetiracetam 500 MG tablet 500 mg PO BID RF: 0 diltiazem HCl 240 MG capsule 240 mg PO DAILY RF: 0 Xarelto 20 MG tablet 20 mg PO DAILY RF: 0 atorvastatin 80 MG tablet 40 mg PO QHS RF: 0 losartan 50 mg tablet 50 mg PO DAILY RF: 0 furosemide 20 mg Tablet 20 mg PO DAILY RF: 0 multivitamin,cv-kcic-eavsugev 1 TABLET tablet 1 tab PO DAILYCM RF: 0 No Action buprenorphine [Butrans] 1 EACH patch weekly 20 mcg TRANSDERM. QWEEK RF: 0 Referrals / Follow Up: Abdullahi Lee DO [STAFF PHYSICIAN] - 05/27/21 Care Physician,No Primary [Primary Care Provider] - Disposition Disposition (needs filled in before D/C Order can be placed): Care Home Facility
--- NOTE | 2021-05-13 11:42 | CASEMGMT ---
Social Work Note Discharge is in for today for TCU. SW placed a call to Leslie with TCU and updated her. Plan: TCU today Aleena Baker CARBONATOR, HEALTH OFFICER
--- NOTE | 2021-05-13 11:50 | DS.PCM_ITS ---
Providers Date of Admission: 05/11/21 Date of Discharge: 05/13/21 Primary Care Physician: Diana Primary Care Phys Consultations 05/11/21 00:43 Consult: Orthopedics Routine Consulting Provider: Brad Mendes Reason for Consult: Right intertrochanteric fracture EMERGENT Consult: No MD Notified: Yes Date Notified: 05/10/21 Time Notified: 21:43 Method of Notification: Verbal Comments:: Notified by [place] ER physician Reason For Visit: RIGHT HIP FX Diagnosis Discharge Diagnosis (1) Closed intertrochanteric fracture of right hip: Status: Acute Code(s): S72.141A - Displaced intertrochanteric fracture of right femur, initial encounter for closed fracture Qualifiers: Encounter type: initial encounter Fracture alignment: nondisplaced Qualified Code(s): S72.144A - Nondisplaced intertrochanteric fracture of right femur, initial encounter for closed fracture Medications at Discharge Home Medications Xarelto 20 mg PO DAILY 02/07/17 atorvastatin 40 mg PO QHS 02/07/17 diltiazem HCl 240 mg PO DAILY 02/07/17 levetiracetam 500 mg PO BID 02/07/17 furosemide 20 mg PO DAILY 05/10/21 losartan 50 mg PO DAILY 05/10/21 multivitamin,vy-crfd-ndiobjdb 1 tab PO DAILYCM 05/10/21 hydrocodone-acetaminophen 1 tab PO Q6H PRN 7 Days #28 tab 05/12/21 metoprolol tartrate 25 mg PO BID 60 Days #0 tab 05/13/21 nystatin 1 applic TOPICAL BID PRN PRN #0 g 05/13/21 sennosides-docusate sodium [Stool Softener-Stimulant Laxat] 2 tab PO BID #0 tab 05/13/21 Hospital Course Operations total hip replacement (Right total hip replacement on 05/12/21) Procedures 2-D Echocardiogram Summary of Care Provided Minutes Spent on Discharge: 45 Hospital Course: 85-year-old female with past medical history of chronic atrial fibrillation, DJD who was admitted as a transfer from [place] ED for right hip fracture. Patient had fallen down on her right side while trying to get out of bed. She has severe pain in the right hip area. Imaging done in [place] ED showed acute right hip comminuted intertrochanteric fracture. Patient was found to be in A. fib with RVR. Patient was on Xarelto for her A. fib. Her INR was 1.4 on admission. Orthopedic surgery were consulted. Patient had intramedullary nailing done. Postoperatively, patient had episode of hypotension which improved with IV fluid boluses. Patient's pain was controlled. She was seen by PT and OT and skilled for discharge to halfway facility. Physical Exam Narrative General: Alert, Oriented x3, Cooperative, on 2L oxygen HEENT: Atraumatic, PERRLA, EOMI, Normocephalic Oral: Moist oral mucosa Neck: Supple, No JVD, Negative Carotid Bruits Lungs: Air entry diminished in bilateral lung bases. Cardiovascular: Regular rate, Regular Rhythm, Normal S1, Normal S2, No murmurs Abdomen: Bowel Sounds Present, Soft, Non Tender, Non-Distended Extremities: No edema, tenderness over the right hip, dressing is intact Weight / BMI Weight Weight: 70.8 kg Body Mass Index (BMI) 30.4 ABG / Lab / Microbiology Data Result Diagrams: 05/13/21 12:50 05/13/21 07:50 Laboratory: Laboratory Results - last 24 hr 05/13/21 07:50: WBC 5.9, RBC 2.49 L, Hgb 8.4 L, Hct 26.5 L, MCV 106.4 H, MCH 33.7 H, MCHC 31.7 L, RDW Std Deviation 49.4 H, RDW Coeff of Tim 12.6, Plt Count 103 L, MPV 10.7, Immature Gran % (Auto) 0.300, Neut % (Auto) 79.9 H, Lymph % (Auto) 12.1 L, [place] % (Auto) 7.7, Eos % (Auto) 0.0, Baso % (Auto) 0.0, Absolute Neuts (auto) 4.7, Absolute Lymphs (auto) 0.71 L, Nucleated RBC % 0 05/13/21 07:50: Sodium 141, Potassium 4.1, Chloride 110 H, Carbon Dioxide 26.0, Anion Gap 5, BUN 21 H, Creatinine 0.66, Estim Creat Clear Calc 29.01, Est GFR (MDRD) Af Amer 109, Est GFR (MDRD) Non-Af 90, BUN/Creatinine Ratio 31.7 H, Glucose 139 H, Calcium 7.9 L, Total Bilirubin 0.50, AST 24, ALT 19, Alkaline Phosphatase 37 L, Total Protein 5.4 L, Albumin 2.2 L, Globulin 3.2, Albumin/Globulin Ratio 0.7 L Radiography Diagnostic Testing: Radiology Impression Hip X-Ray 05/12/21 11:35 IMPRESSION: Status post ORIF of the right intertrochanteric fracture. There is good alignment. Electronically Signed: Mehul Alva MD at 15:44 EDT , Service support , D/C Instructions Discharge Diet: Low fat / Low cholesterol and 2000 mg Sodium Diet Discharge Activity: Return to Normal Activity Weight Bearing Status: Weight bearing as tolerated Meaningful Use Info Meaningful Use Diagnoses (Choose all that apply): None applicable Discharge Plan Admission Admit Date/Time: 05/11/21 00:03 Primary Reason for Your Visit: Acute right hip fracture Attending Provider: Shamika Blankenship Primary Care Provider: Care Physician,No Primary Consulting Providers: Brad Mendes Instructions Additional Instructions / Restrictions: Wound care to right thigh-dry sterile dressing changes daily and as needed for saturation. Okay to shower on postoperative day #4, no tub soaks. Weightbearing as tolerated right lower extremity. Discharge Orders/Prescriptions Prescriptions: New hydrocodone-acetaminophen 5-325 mg tablet 1 tab PO Q6H PRN (Reason: pain) 7 Days Qty: 28 RF: 0 nystatin 100,000 unit/gram Ointment 1 applic topical BID PRN PRN (Reason: skin issues) Qty: 0 RF: 0 sennosides-docusate sodium [Stool Softener-Stimulant Laxat] 8.6-50 mg Tablet 2 tab PO BID Qty: 0 RF: 0 metoprolol tartrate 25 mg Tablet 25 mg PO BID 60 Days Qty: 0 RF: 0 Continued levetiracetam 500 MG tablet 500 mg PO BID RF: 0 diltiazem HCl 240 MG capsule 240 mg PO DAILY RF: 0 Xarelto 20 MG tablet 20 mg PO DAILY RF: 0 atorvastatin 80 MG tablet 40 mg PO QHS RF: 0 losartan 50 mg tablet 50 mg PO DAILY RF: 0 furosemide 20 mg Tablet 20 mg PO DAILY RF: 0 multivitamin,gr-krjq-ddbydmgk 1 TABLET tablet 1 tab PO DAILYCM RF: 0 Discontinued buprenorphine [Butrans] 1 EACH patch weekly 20 mcg TRANSDERM. QWEEK RF: 0 Referrals / Follow Up: Abdullahi Lee DO [STAFF PHYSICIAN] - 05/27/21 Care Physician,No Primary [Primary Care Provider] - Disposition Disposition (needs filled in before D/C Order can be placed): Residential Facility Charges/Coding Visit Charges Inpatient E&M: 14990 Disch Hosp
--- NOTE | 2021-05-13 12:30 | NURSING ---
Aware of Negative Covid. Will call TCU and give report.
--- NOTE | 2021-05-13 12:39 | NURSING ---
Report given to Leslye COOK in TCU at this time. Pt will head on over around 1400 today.
--- NOTE | 2021-05-13 13:39 | PCM.PN.ORT ---
Subjective Subjective Patient seen and examined at bedside this afternoon. She was up bed sitting in a chair. She denies any new complaints other than some bloating in her abdomen, states she has not a BM since admission. She denies any abdominal pain. Positive flatus. Denies any fevers, chills, nausea vomiting, chest pain or shortness of breath. Pain is controlled with current pain regimen. She states physical therapy went well today getting up to a chair and bearing some weight on the right lower extremity. Per nursing, plan is for discharge to TCU today. Objective Data Objective Data Vital Signs: Vital Signs Temp Pulse Resp BP Pulse Ox 98.0 F 94 18 116/66 100 05/13/21 10:00 05/13/21 10:07 05/13/21 10:00 05/13/21 10:00 05/13/21 10:53 Oxygen Flow Rate (L/min) 2 Oxygen Delivery Method Nasal Cannula Weight: 156 lb 1.396 oz Body Mass Index (BMI) 30.4 Intake & Output: Intake and Output for Last 24 Hours 05/11/21 05/12/21 05/13/21 23:59 23:59 23:59 Intake Total 1798.25 / 1798.25 2105.75 / 2105.75 1596.33 / 1596.33 Output Total 2024 / 2024 625 / 625 350 / 350 Balance -226.75 / -226.75 1480.75 / 1480.75 1246.33 / 1246.33 Lab / Micro Data Result Diagrams: 05/13/21 07:50 05/13/21 07:50 Labs: Laboratory Results - last 24 hr 05/13/21 07:50: WBC 5.9, RBC 2.49 L, Hgb 8.4 L, Hct 26.5 L, MCV 106.4 H, MCH 33.7 H, MCHC 31.7 L, RDW Std Deviation 49.4 H, RDW Coeff of Tim 12.6, Plt Count 103 L, MPV 10.7, Immature Gran % (Auto) 0.300, Neut % (Auto) 79.9 H, Lymph % (Auto) 12.1 L, [place] % (Auto) 7.7, Eos % (Auto) 0.0, Baso % (Auto) 0.0, Absolute Neuts (auto) 4.7, Absolute Lymphs (auto) 0.71 L, Nucleated RBC % 0 05/13/21 07:50: Sodium 141, Potassium 4.1, Chloride 110 H, Carbon Dioxide 26.0, Anion Gap 5, BUN 21 H, Creatinine 0.66, Estim Creat Clear Calc 29.01, Est GFR (MDRD) Af Amer 109, Est GFR (MDRD) Non-Af 90, BUN/Creatinine Ratio 31.7 H, Glucose 139 H, Calcium 7.9 L, Total Bilirubin 0.50, AST 24, ALT 19, Alkaline Phosphatase 37 L, Total Protein 5.4 L, Albumin 2.2 L, Globulin 3.2, Albumin/Globulin Ratio 0.7 L Micro: Microbiology 05/13/21 11:50 Mucosa - Nose SARS-CoV-2 Antigen (Rapid) - Final Radiography Diagnostic Testing: Radiology Impression Hip X-Ray 05/12/21 11:35 IMPRESSION: Status post ORIF of the right intertrochanteric fracture. There is good alignment. Electronically Signed: Mehul Alva MD at 15:44 EDT , Service support , Physical Exam Narrative General - A&Ox3, NAD. VSS/AF Right lower extremity -incisional dressing C/D/I x2. SILT Sural, Saphenous, SPN, DPN, Tibial N. distributions. DP, PT 2+. BCR. DF, PF, EHL 5/5. No calf TTP. Assessment & Plan Assessment/Plan (1) Closed intertrochanteric fracture of right hip: QUALIFIERS: Encounter type: initial encounter Fracture alignment: nondisplaced Qualified Code(s): S72.144A - Nondisplaced intertrochanteric fracture of right femur, initial encounter for closed fracture PLAN: POD#1 s/p right femur cephalomedullary nailing - Pain control - Medicine following for medical management - PT/OT - DVT PPX -Xarelto restarted this morning -Hemoglobin 8.4 this morning down from 10.5 yesterday. Asymptomatic. Consistent with acute blood loss anemia secondary to surgery. - Case management - D/C planning to TCU today -[place] Rx sent to [facility] retail pharmacy -Stable from orthopedic standpoint. She will follow up with me in approximately 2 weeks for x-rays, staple removal and wound check. Continue progression with PT/OT in TCU setting.
[2021-05-13 13:57] LABS: Hematocrit 26.8 % (37-47); Hemoglobin 8.8 g/dL (12.0-15.0)
== END 2021-05-13 15:49 | disposition skilled nursing facility (03) | DRG 481 ==
PROVIDERS: Anesthesiology; Student in an Organized Health Care Education/Training Program; Admitting Provider Internal Medicine; Visit Provider Internal Medicine
PROC: 0QH606Z Insertion of Intramedullary Internal Fixation Device into Right Upper Femur, Open Approach (ICD-10-PCS; CPT 27245; principal; 2021-05-12 10:30)
DX: S72.141A Displaced intertrochanteric fracture of right femur, initial encounter for closed fracture (principal); I48.20 Chronic atrial fibrillation, unspecified; I27.20 Pulmonary hypertension, unspecified; G40.909 Epilepsy, unspecified, not intractable, without status epilepticus; I95.9 Hypotension, unspecified; E07.81 Sick-euthyroid syndrome; E83.42 Hypomagnesemia; I10 Essential (primary) hypertension; E78.5 Hyperlipidemia, unspecified; M17.0 Bilateral primary osteoarthritis of knee; G89.29 Other chronic pain; F03.90 Unspecified dementia, unspecified severity, without behavioral disturbance, psychotic disturbance, mood disturbance, and anxiety; F41.9 Anxiety disorder, unspecified; W06.XXXA Fall from bed, initial encounter; Y93.9 Activity, unspecified; Y92.003 Bedroom of unspecified non-institutional (private) residence as the place of occurrence of the external cause; Y99.9 Unspecified external cause status; Z79.01 Long term (current) use of anticoagulants; Z79.899 Other long term (current) drug therapy; Z86.73 Personal history of transient ischemic attack (TIA), and cerebral infarction without residual deficits
CPT/HCPCS: 36415; 71046; 72170; 73502; 73552; 76000; 80053; 83036; 83735; 84439; 84443; 84481; 85014; 85018; 85025; 85730; 86850; 86900; 86901; 87426; 93005; 93306; 97110; 97163; 97166; 97530; 99251; C1713; C1776; J7030; J7040; J7050; J7120; Q9957; A4216; C8929; G0463; J2405; J3490

== ENCOUNTER 2021-05-13 16:00 | Inpatient (IN) | payer MEDICARE, OTHER, SELFPAY ==
[2021-05-13 16:18] VITALS: BMI 30.2
[2021-05-13 16:45] VITALS: BP 132/68; PULSE 82; RESP 18; TEMP 36.8; O2SAT 90
[2021-05-13 18:17] VITALS: BP 132/68; PULSE 82
[2021-05-13] MEDS: levETIRAcetam 500 MG Tablet PO (18:17)
[2021-05-13] MEDS: Metoprolol Tartrate 25 MG Tablet PO (18:17)
[2021-05-13] MEDS: Senna/Docusate Sodium 1 Tablet 2 TABLET PO (18:20)
[2021-05-13] MEDS: Rivaroxaban 20 MG Tablet PO (18:26)
[2021-05-13] MEDS: HYDROcodone Bitartrate/Apap 5/325 Tablet PO (18:28)
--- NOTE | 2021-05-13 21:18 | PCM.HP.STD ---
HPI - General General Date of Admission: 05/13/21 HPI Narrative 05/10/2021 MYAH SOLOMON, is a 85 Female who presents to [place] [facility] with right hip fracture. 05/10/2021 EKG showed atrial fibrillation. 05/10/2021 Directly admitted to [facility]. Fall severe right hip pain, right hip fracture. Hold Xarelto, consult orthopedics, for right hip fracture. Metoprolol 5mg IV for atrial fibrillation with rapid ventricular response. 05/11/2021 Echo left ventricular systolic function normal. EF 60%. Pulmonary artery systolic pressure 60mm HG. 05/11/2021 Right hip pain worse with movement. 05/12/2021 Dr. Lee performed intramedullary nail right femur. Postoperative hypotension improved with IV fluids. 05/13/2021 Admit to TCU with debility, here for rehabilitation, strengthening, prior to discharge home with family. [facility] Medical History Atrial fibrillation Chronic pain High cholesterol History of stress test Irregular heart beat Kidney stones On home oxygen therapy Osteoporosis Seizures Stroke/cerebrovascular accident Home Medications Xarelto 20 mg PO DAILY 02/07/17 [History Last Taken Unknown] atorvastatin 40 mg PO QHS 02/07/17 [History Last Taken Unknown] diltiazem HCl 240 mg PO DAILY 02/07/17 [History Last Taken Unknown] levetiracetam 500 mg PO BID 02/07/17 [History Last Taken Unknown] furosemide 20 mg PO DAILY 05/10/21 [History Last Taken Unknown] losartan 50 mg PO DAILY 05/10/21 [History Last Taken Unknown] multivitamin,[id number] 1 tab PO DAILYCM 05/10/21 [History Last Taken Unknown] hydrocodone-acetaminophen 1 tab PO Q6H PRN 7 Days #28 tab 05/12/21 [Rx Last Taken Unknown] metoprolol tartrate 25 mg PO BID 05/13/21 [History Last Taken Unknown] nystatin 1 applic TOPICAL BID PRN PRN #0 g 05/13/21 [Rx Last Taken Unknown] sennosides-docusate sodium [Stool Softener-Stimulant Laxat] 2 tab PO BID 05/13/21 [History Last Taken Unknown] Allergy/AdvReac Type Severity Reaction Status Date / Time amiodarone Allergy Rash Verified 02/07/17 18:54 aspirin [From Percodan] Allergy Unknown Verified 02/07/17 18:54 cefdinir Allergy Rash Verified 02/07/17 18:54 ciprofloxacin [From Cipro] Allergy Hives Verified 05/10/21 22:46 ciprofloxacin HCl Allergy Unknown Verified 02/07/17 18:54 [From Cipro] ibuprofen [From Advil] Allergy Unknown Verified 02/07/17 18:54 Iodinated Contrast Media Allergy Hives Verified 05/10/21 22:42 iodine Allergy Rash Verified 02/07/17 18:54 lisinopril Allergy cough Verified 05/10/21 22:46 meperidine HCl [From Demerol] Allergy Vomiting Verified 05/10/21 22:46 methocarbamol [From Robaxin] Allergy Hives Verified 05/10/21 22:46 nitroglycerin Allergy headaches Verified 05/10/21 22:46 oxycodone HCl [From Percodan] Allergy Unknown Verified 02/07/17 18:54 oxycodone terephthalate Allergy Unknown Verified 02/07/17 18:54 [From Percodan] Penicillins Allergy Hives Verified 05/10/21 22:46 verapamil HCl [From Calan] Allergy Unknown Verified 02/07/17 18:54 cephalexin [From Keflex] AdvReac Upset Verified 05/10/21 22:46 Stomach Surgical History History of appendectomy History of total right hip arthroplasty S/P hysterectomy Social History (Updated 05/13/21 @ 21:[address] Mukund Peterson MD) household members: family Smoking Status: Never smoker ROS Constitutional Constitutional: Denies chills, fever(s) or weight gain ENT HEENT: Denies headache(s), nasal congestion or nasal discharge Cardiovascular Cardiovascular: Denies chest pain or palpitations Respiratory/Chest Respiratory/Chest: Denies cough, excessive phlegm production or shortness of breath with exertion Gastrointestinal Gastrointestinal: Denies abdominal pain, nausea or vomiting Genitourinary Genitourinary: Denies dysuria Musculoskeletal Musculoskeletal: Denies joint pain or joint swelling Integumentary Integumentary: Denies rash or wounds Neurologic Neurologic: Denies focal weakness, numbness or tingling Psychiatric Psychiatric: Reports auditory hallucinations; Denies anxiety, depression, homicidal ideation or suicidal ideation Vital Signs Vital Signs Vital Signs: 05/13/21 16:45 05/13/21 18:10 05/13/21 18:17 Temperature 98.2 F Temperature Source Temporal Pulse Rate 82 82 Pulse Rhythm Irregular Pulse Strength Normal (2+) Respiratory Rate 18 Respiratory Effort Normal Non-Labored Respiratory Depth Normal Respiratory Pattern Normal Blood Pressure 132/68 H 132/68 H Blood Pressure Mean 89 Blood Pressure Source Monitor Blood Pressure Position Semi-Fowlers Blood Pressure Location Left Arm Pulse Ox 90 Oxygen Delivery Method Room Air Room Air Weight Weight: 74.956 kg Body Mass Index (BMI) 30.2 Physical Exam Const alert and oriented x3 General Appearance: cooperative HEENT normocephalic Eyes PERRL and EOMs intact bilaterally Neck supple, no JVD and no carotid bruits Resp normal respiratory effort, normal air movement and clear to auscultation bilaterally Cardio regular rate and regular rhythm GI normal to inspection, nondistended, normoactive bowel sounds, non-tender and non-distended Extremity normal capillary refill General Extremity: Negative for edema Skin no rashes or lesions noted General Skin Exam: no breakdown Psych affect normal Appearance: appropriate Assessment & Plan Assessment/Plan (1) History of total right hip arthroplasty: (2) Closed intertrochanteric fracture of right hip: QUALIFIERS: Encounter type: initial encounter Fracture alignment: nondisplaced Qualified Code(s): S72.144A - Nondisplaced intertrochanteric fracture of right femur, initial encounter for closed fracture (3) Hypertension: (4) Anxiety: (5) Hyperlipidemia: (6) Debility: (7) Stroke: (8) Atrial fibrillation with rapid ventricular response: (9) Hyperlipidemia: (10) Opioid dependence: (11) Seizure disorder: (12) Vitamin D deficiency: (13) Hypertension: PLAN: 85 year old female with below past medical history hospitalized for right hip fracture, underwent right femur intramedullary nail fixation 05/12/[address] Lee, postoperative course complicated by hypotension, admitted to TCU with debility, here for rehabilitation, strengthening, prior to discharge home with family. Debility - PT/OT. Pain - Tylenol 1000mg Q8H, Oxycodone 5mg Q4H prn pain (6-10). Bowel - Miralax 17gm daily, Senna/colace 2 tablets twice daily, Dulcolax 10mg daily PRN. Adult immunization - Administer prevnar 13, pneumovax 23, fluzone, covid 19 vaccine as appropriate. DVT prophylaxis - not necessary, already on Xarelto. Hyperlipidemia - Atorvastatin 40mg QHS. Atrial fibrillation - Metoprolol 25mg twice daily, Diltiazem 240mg daily, Xarelto 20mg daily. Nutrition - MVI daily, Ensure Enlive 120ml 4x/day. Edema - Furosemide 20mg daily. Seizure disorder - Keppra 500mg twice daily. Hypertension - Metoprolol 25mg twice daily, Diltiazem 240mg daily, Losartan 50mg daily. \ Tinea corporis - Nystatin powder topical twice daily.
[2021-05-13] MEDS: Acetaminophen 500 MG Tablet 1000 MG PO (23:01)
[2021-05-13] MEDS: Atorvastatin Calcium 40 MG Tablet PO (23:01)
[2021-05-13] MEDS: traMADol 50 MG Tablet PO (23:01)
[2021-05-14] MEDS: levETIRAcetam 500 MG Tablet PO ×2 (05:17→17:10)
[2021-05-14 05:18] VITALS: BP 110/54; PULSE 70
[2021-05-14] MEDS: Metoprolol Tartrate 25 MG Tablet PO ×2 (05:18→17:09)
[2021-05-14] MEDS: traMADol 50 MG Tablet PO ×2 (05:18→17:17)
[2021-05-14] MEDS: Losartan Potassium 50 MG Tablet PO (05:18)
[2021-05-14] MEDS: Furosemide 20 MG Tablet PO (05:18)
[2021-05-14] MEDS: Acetaminophen 500 MG Tablet 1000 MG PO ×3 (05:18→21:26)
[2021-05-14] MEDS: Menthol/Lanolin/Calamine/Znox 113 GM Tube 1 APPLIC TOPICAL ×2 (05:18→17:07)
[2021-05-14] MEDS: Nystatin Powder 15gm Bottle 1 APPLIC TOPICAL ×2 (05:19→17:07)
[2021-05-14] MEDS: dilTIAZem CD 240 MG Capsule PO (05:25)
[2021-05-14 05:57] LABS: Absolute Lymphocyte Count 1.16 X10^3/uL (0.83-4.51); Absolute Neutrophil Count 5.9 X10^3/uL (2.0-7.7); Eosinophil# 0.01 X10^3/uL; Eosinophils% 0.1 % (0-5); Hematocrit 25.5 % (37-47); Hemoglobin 8.2 g/dL (12.0-15.0); Lymphocyte # 1.16 X10^3/ul (0.83-4.51); Lymphocyte % 14.8 % (19-41); Mean Corp Hgb Conc 32.2 g/dL (32-36); Mean Corpuscular Hgb 34.2 pg (27.0-32.0); Mean Corpuscular Volume 106.3 fL (81-99); Mean Platelet Vol. 10.7 fl (6.2-12.0); Monocyte% 8.9 % (0-10); NRBC Flagged by Analyzer 0 % (0-5); Neutrophil # 5.94 X10^3/uL (2.7-7.7); Neutrophil % 75.6 % (47-70); Platelet Count 135 K/mm3 (150-450); RBC Distribution Width CV 12.9 % (11.6-14.6); RBC Distribution Width SD 50.5 fl (35.1-43.9); White Blood Count 7.9 K/mm3 (4.4-11.0)
[2021-05-14 06:30] VITALS: O2SAT 94
[2021-05-14 06:39] LABS: Anion Gap 3 (5-15); BUN 23 mg/dL (7-18); Calcium,Total 8.1 mg/dL (8.5-10.1); Chloride 109 mmol/L (98-107); Creatinine, Serum 0.66 mg/dL (0.55-1.02); EST Glomerular Filtration Rate 91 mL/min (>60); Est Glom Filt Rate - Afr Amer 110 mL/min (>60); Estimated Creatinine Clearance 31.94 ml/min; Glucose 121 mg/dL (74-106); Potassium 3.8 mmol/L (3.5-5.1); Sodium Level 142 mmol/L (136-145)
[2021-05-14 06:54] VITALS: PULSE 70; RESP 18; O2SAT 98
--- NOTE | 2021-05-14 07:01 | NURSING ---
Patient has had several liquid bowel movements throughout this shift. Bowel sounds present x4. Discomfort with palpation. Dr. Peterson updated. New order for KUB.
--- NOTE | 2021-05-14 07:45 | RAD_ITS ---
STUDY: X-RAY - ABDOMEN/PELVIS REASON FOR EXAM: Female, 85 years old. Diarrhea/constipation . Recent hip surgery. TECHNIQUE: COMPARISON: None. FINDINGS: Normal visualized lung bases. There is an unremarkable bowel gas pattern. The visualized liver, spleen and kidneys are grossly normal in size and morphology. There are calcified phleboliths in the pelvis. There are diffuse degenerative changes of the visualized lumbar spine. The patient is status post intramedullary flakito and screw fixation of the right intertrochanteric fracture. RAD/Abdomen Single View IMPRESSION: There is a nonspecific bowel gas pattern. Electronically Signed: Mehul Alva MD at 9:42 EDT , Service support ,
[2021-05-14] MEDS: Multivitamins,Ther W-Minerals Tablet 1 TABLET PO (08:05)
[2021-05-14] MEDS: Tuberculin,Purif.prot.deriv. 50 TU/ML Vial 0.1 ML ID (11:00)
[2021-05-14 13:10] VITALS: BP 97/50; PULSE 54; RESP 14; TEMP 36.3; O2SAT 95
[2021-05-14 13:20] VITALS: BP 98/42
[2021-05-14] MEDS: 0.9% Normal Saline 1,000 ML 999 ML IV (13:28)
--- NOTE | 2021-05-14 14:25 | NURSING ---
WASH MILL OPERATOR called this nurse into room and stated pt was dizzy and had low BP of 88/39 taken in left arm. Pt was immediately assessed Bp rechecked in right arm and was 97/50 and oxygen was set to 2L but nasal cannula was off of pt but in reach, SPO2 was 88% on RA, NC reapplied and Spo2 recovered to 94% quickly, BP recheck and noted to be 98/42, HOB lowered to increase blood flow to heart and raise BP, pt talking and reponding appropriately, Dr. Peterson called and N.O. for 1,000ml NS bolus and recheck BP. Saline lock started in left hand and bolus given, BP increased to 104/46, apical pulse 53 and pt states she feels less dizzy. Charge nurse aware.
[2021-05-14 17:09] VITALS: BP 128/58; PULSE 69
[2021-05-14] MEDS: Rivaroxaban 20 MG Tablet PO (17:10)
[2021-05-14] MEDS: Atorvastatin Calcium 40 MG Tablet PO (21:26)
--- NOTE | 2021-05-14 23:41 | NURSING ---
Was reported from previous Nurse that patient had what appeared to be a rash starting on her lower back. While assisting LANG PATH THERAPIST in transferring patient from bedside commode to bed. Rash noted to bilateral flank area. Patient denies any symptoms. Rash not noted anywhere else at this time.
[2021-05-15 03:23] VITALS: BP 152/81; PULSE 84; RESP 18; O2SAT 100
[2021-05-15] MEDS: traMADol 50 MG Tablet PO ×2 (03:27→22:30)
--- NOTE | 2021-05-15 03:32 | NURSING ---
Patient states there is a younger couple verbally fighting around her room. Patient states, they were in and out of my room. They kept slamming the door in and out. These two were very loud and I have3 not slept! Patient then states, I am not hallucinating! I know what I heard and saw. Patient assessed and is alert and oriented x4. Answers questions appropriately. Vitals obtained as noted in chart. RN aware. Will continue to monitor patient.
[2021-05-15 04:46] VITALS: BP 152/81; PULSE 84
[2021-05-15] MEDS: Metoprolol Tartrate 25 MG Tablet PO ×2 (04:46→17:00)
[2021-05-15] MEDS: levETIRAcetam 500 MG Tablet PO ×2 (04:47→16:59)
[2021-05-15] MEDS: Senna/Docusate Sodium 1 Tablet 2 TABLET PO (04:47)
[2021-05-15] MEDS: Losartan Potassium 50 MG Tablet PO (04:47)
[2021-05-15] MEDS: Polyethylene Glycol 3350 17 GM PACKET PO (04:47)
[2021-05-15] MEDS: Acetaminophen 500 MG Tablet 1000 MG PO ×3 (04:47→22:27)
[2021-05-15] MEDS: Furosemide 20 MG Tablet PO (04:47)
[2021-05-15] MEDS: dilTIAZem CD 240 MG Capsule PO (04:48)
[2021-05-15] MEDS: Menthol/Lanolin/Calamine/Znox 113 GM Tube 1 APPLIC TOPICAL ×2 (04:48→17:04)
[2021-05-15] MEDS: Nystatin Powder 15gm Bottle 1 APPLIC TOPICAL ×2 (04:53→17:04)
--- NOTE | 2021-05-15 04:53 | NURSING ---
Addendum entered by Vira Cagle 05/15/21 09:46: Dr. Peterson in and assessed N.O. prednisone 10 mg x1 dose now, then prednisone 10mg x5 days Addendum entered by Catrina Keating 05/15/21 05:11: Dressing to surgical incision falling off at this time. Dressing changed. Patient tolerated well. Original Note: Patient complaining of discomfort. This Nurse and FRAUD ANALYST went into patient's room and repositioned patient. While assessing Patient, rash noted now to front and back of torso and beginning to go down patint's lower extremities. Note left for Dr. Peterson.
[2021-05-15 05:38] LABS: Hematocrit 25.4 % (37-47); Hemoglobin 8.3 g/dL (12.0-15.0)
[2021-05-15 06:40] VITALS: O2SAT 98
[2021-05-15] MEDS: Iron Polysaccharide Complex 150 MG CAPSULE PO (09:44)
[2021-05-15] MEDS: predniSONE 10 MG Tablet PO (09:45)
[2021-05-15] MEDS: Multivitamins,Ther W-Minerals Tablet 1 TABLET PO (09:45)
--- NOTE | 2021-05-15 09:47 | NURSING ---
Hgb 8.3 new order ferrex 150mg and recheck H/H 05/17/21
[2021-05-15 13:51] VITALS: BP 124/61; PULSE 70; RESP 14; TEMP 36.4; O2SAT 96
--- NOTE | 2021-05-15 14:58 | PHA.CONS_ITS ---
Progress Note - Pharmacy Subjective: TCU ADMISSION Objective: Allergies amiodarone Allergy (Verified 02/07/17 18:54) Rash aspirin [From Percodan] Allergy (Verified 02/07/17 18:54) Unknown cefdinir Allergy (Verified 02/07/17 18:54) Rash ciprofloxacin [From Cipro] Allergy (Verified 05/10/21 22:46) Hives ciprofloxacin HCl [From Cipro] Allergy (Verified 02/07/17 18:54) Unknown ibuprofen [From Advil] Allergy (Verified 02/07/17 18:54) Unknown Iodinated Contrast Media Allergy (Verified 05/10/21 22:42) Hives iodine Allergy (Verified 02/07/17 18:54) Rash lisinopril Allergy (Verified 05/10/21 22:46) cough meperidine HCl [From Demerol] Allergy (Verified 05/10/21 22:46) Vomiting methocarbamol [From Robaxin] Allergy (Verified 05/10/21 22:46) Hives nitroglycerin Allergy (Verified 05/10/21 22:46) headaches nitrate analogues oxycodone HCl [From Percodan] Allergy (Verified 02/07/17 18:54) Unknown oxycodone terephthalate [From Percodan] Allergy (Verified 02/07/17 18:54) Unknown Penicillins Allergy (Verified 05/10/21 22:46) Hives verapamil HCl [From Calan] Allergy (Verified 02/07/17 18:54) Unknown cephalexin [From Keflex] Adverse Reaction (Verified 05/10/21 22:46) Upset Stomach Current Medications Generic Name Dose Route Start Last Admin Trade Name Freq PRN Reason Stop Dose Admin Acetaminophen 1,000 mg 05/13/21 22:00 05/15/21 14:13 Acetaminophen 500 Mg Tablet PO 1,000 mg Q8 SERENE Administration Atorvastatin Calcium 40 mg 05/13/21 22:00 05/14/21 21:26 Atorvastatin Calcium 40 Mg Tablet PO 40 mg QHS SERENE Administration Bisacodyl 10 mg 05/13/21 21:31 Bisacodyl 5 Mg Tablet PO DAILY PRN Constipation Calamine/Phenol 1 applic 05/14/21 06:00 05/15/21 04:48 Menthol/Lanolin/Calamine/Znox 113 Gm Tube TOPICAL 1 applic BID SERENE Administration Protocol Diltiazem HCl 240 mg 05/14/21 06:00 05/15/21 04:48 Diltiazem Cd 240 Mg Capsule PO 240 mg DAILY SERENE Administration Furosemide 20 mg 05/14/21 06:00 05/15/21 04:47 Furosemide 20 Mg Tablet PO 20 mg DAILY SERENE Administration Levetiracetam 500 mg 05/13/21 18:00 05/15/21 04:47 Levetiracetam 500 Mg Tablet PO 500 mg BID SERENE Administration Losartan Potassium 50 mg 05/14/21 06:00 05/15/21 04:47 Losartan Potassium 50 Mg Tablet PO 50 mg DAILY SERENE Administration Metoprolol Tartrate 25 mg 05/13/21 18:00 05/15/21 04:46 Metoprolol Tartrate 25 Mg Tablet PO 25 mg BID SERENE Administration Multivitamins/Minerals 1 tablet 05/14/21 08:00 05/15/21 09:45 Multivitamins,Ther W-Minerals Tablet PO 1 tablet DAILYCM [facility] Administration Nutritional Formula (Lactose Free) 120 ml 05/13/21 17:00 05/15/21 11:57 Ensure Enlive 120 Ml Liquid PO 120 ml 4X/DAY SERENE Administration Nystatin 1 applic 05/13/21 22:00 05/15/21 04:53 Nystatin Powder 15gm Bottle TOPICAL 1 applic BID [facility] Administration Protocol Polyethylene Glycol 17 gm 05/14/21 06:00 05/15/21 04:47 Polyethylene Glycol 3350 17 Gm Packet PO 17 gm DAILY SERENE Administration Polysaccharide Iron Complex 150 mg 05/15/21 08:00 05/15/21 09:44 Iron Polysaccharide Complex 150 Mg [facility] Administration Prednisone 10 mg 05/16/21 06:00 Prednisone 10 Mg Tablet PO 05/20/21 06:01 DAILY [facility] Rivaroxaban 20 mg 05/13/21 18:00 05/14/21 17:10 Rivaroxaban 20 Mg Tablet PO 20 mg DINNER [facility] Administration Senna/Docusate Sodium 2 tablet 05/13/21 18:00 05/15/21 04:47 Senna/Docusate Sodium 1 Tablet PO 2 tablet BID [facility] Administration Tramadol HCl 50 mg 05/13/21 21:31 05/15/21 03:27 Tramadol 50 Mg Tablet PO 50 mg Q6H PRN PRN Administration Pain Score 6-10 Tuberculin PPD 0.1 ml 05/21/21 10:00 Tuberculin,Purif.Prot.Deriv. 50 Tu/Ml Vial ID 05/21/21 10:01 X1 ONE Problem List (Last Reviewed 05/13/21 @ 21:[address] Mukund Peterson MD) Hypertension (Chronic) Vitamin D deficiency (Acute) Seizure disorder (Acute) Opioid dependence (Acute) Hyperlipidemia (Acute) Atrial fibrillation with rapid ventricular response (Acute) Stroke (Acute) Debility (Acute) History of total right hip arthroplasty (Acute) Closed intertrochanteric fracture of right hip (Acute) Hypertension (Chronic) Anxiety (Chronic) Hyperlipidemia (Chronic) Vital Signs Temp Pulse Resp BP Pulse Ox 97.6 F L 70 14 124/61 H 96 05/15/21 13:51 05/15/21 13:51 05/15/21 13:51 05/15/21 13:51 05/15/21 13:51 Oxygen Flow Rate (L/min) 2 Oxygen Delivery Method Room Air Weight: 75.024 kg Body Mass Index (BMI) 30.2 Sodium 142 mmol/L (136-145) 05/14/21 05:05 Potassium 3.8 mmol/L (3.5-5.1) 05/14/21 05:05 Chloride 109 mmol/L (98-107) H 05/14/21 05:05 Carbon Dioxide 30.0 mmol/L (21.0-32.0) 05/14/21 05:05 Anion Gap 3 (5-15) L 05/14/21 05:05 BUN 23 mg/dL (7-18) H 05/14/21 05:05 Creatinine 0.66 mg/dL (0.55-1.02) 05/14/21 05:05 Est GFR (MDRD) Af Amer 110 mL/min (>60) 05/14/21 05:05 Est GFR (MDRD) Non-Af 91 mL/min (>60) 05/14/21 05:05 BUN/Creatinine Ratio 35.0 RATIO (10-20) H 05/14/21 05:05 Glucose 121 mg/dL (74-106) H 05/14/21 05:05 Assessment/Plan: 1. Tylenol 1000mg PO Q8h, Tramadol 50mg PO Q6h PRN Pain 6-10. Please continue to monitor for S/S increased/decreased pain, PRN medication usage. 2. Atrial Fibrillation/HLD/HTN/Edema: Lipitor 40mg PO QHS, Cardizem 240mg PO Daily, Lasix 20mg PO daily, Losartan 50mg PO Daily, Lopressor 25mg PO BID, Xarelto 20mg PO Daily. Please continue to monitor for S/S bleeding/bruising, BP, pulse, fluid status, electrolytes, Lipid panel annually or sooner if clinically indicated. 3. New-onset rash: Prednisone 10mg PO daily x5 days. Please continue to monitor for improvement in rash, nausea/vomiting, stomach upset. 4. Anemia: Ferrex 150mg PO Daily. Please continue to monitor iron studies as clinically indicated. 5. Seizure Disorder: Keppra 500mg PO BID. Please continue to monitor for medication effectiveness. 6. General Wellness: MVI 1 tab PO Daily. Please continue to monitor Psychotropic Medications: None Unnecessary Medications: None Bowel Regimen: Miralax 17g PO Daily, Senna/Docusate 2 tab PO BID, Dulcolax 10mg PO Daily PRN. Please continue to monitor for increased/decreased constipation and/or diarrhea. Date of Note:: 05/15/21
--- NOTE | 2021-05-15 16:20 | CASEMGMT ---
Social Work Met with pt and completed initial assessment. SW attempted to talk with pt about code status and MOLST form. PT became anxious and stated she and Kumar her son and doctor already spoke about this and it has been settled. Pt refused to talk further about it. Per H&P from hospitalist, pt is full code with intubation. MOLST not completed. Pt plans to return home where she lives with her son. Pt is alone during the day when son and dIl are at work. SW to follow. RERE Eddy
[2021-05-15] MEDS: Rivaroxaban 20 MG Tablet PO (16:59)
[2021-05-15 17:00] VITALS: PULSE 70
[2021-05-15 22:00] VITALS: PULSE 95; O2SAT 95
[2021-05-15] MEDS: Atorvastatin Calcium 40 MG Tablet PO (22:28)
[2021-05-16 05:16] VITALS: BP 146/84; PULSE 85
[2021-05-16] MEDS: Menthol/Lanolin/Calamine/Znox 113 GM Tube 1 APPLIC TOPICAL ×2 (05:20→17:40)
[2021-05-16] MEDS: Polyethylene Glycol 3350 17 GM PACKET PO (05:20)
[2021-05-16 05:22] VITALS: BP 146/84; PULSE 85
[2021-05-16] MEDS: Nystatin Powder 15gm Bottle 1 APPLIC TOPICAL ×2 (05:22→21:36)
[2021-05-16] MEDS: Furosemide 20 MG Tablet PO (05:22)
[2021-05-16] MEDS: dilTIAZem CD 240 MG Capsule PO (05:22)
[2021-05-16] MEDS: Metoprolol Tartrate 25 MG Tablet PO ×2 (05:22→17:41)
[2021-05-16] MEDS: Losartan Potassium 50 MG Tablet PO (05:22)
[2021-05-16] MEDS: predniSONE 10 MG Tablet PO (05:22)
[2021-05-16] MEDS: Acetaminophen 500 MG Tablet 1000 MG PO ×3 (05:22→21:28)
[2021-05-16] MEDS: levETIRAcetam 500 MG Tablet PO ×2 (05:22→17:40)
[2021-05-16] MEDS: Senna/Docusate Sodium 1 Tablet 2 TABLET PO (05:22)
[2021-05-16] MEDS: Multivitamins,Ther W-Minerals Tablet 1 TABLET PO (07:58)
[2021-05-16] MEDS: traMADol 50 MG Tablet PO ×2 (08:00→21:32)
[2021-05-16] MEDS: Iron Polysaccharide Complex 150 MG CAPSULE PO (08:01)
[2021-05-16 10:15] VITALS: PULSE 71; RESP 98; O2SAT 98
[2021-05-16] MEDS: 0.9% Saline Lock 10 ML Syringe IV (11:11)
[2021-05-16] MEDS: Hydrocortisone 2.5% Crm 1 APPLIC TOPICAL (13:29)
--- NOTE | 2021-05-16 14:25 | NURSING ---
family updated at visit
[2021-05-16 16:20] VITALS: BP 149/78; PULSE 73; RESP 16; TEMP 36.2; O2SAT 94
[2021-05-16] MEDS: Rivaroxaban 20 MG Tablet PO (17:40)
[2021-05-16 17:41] VITALS: BP 149/78; PULSE 73
[2021-05-16] MEDS: Sodium Chloride 0.65% 1 SPRAY SPRAY.BTL NASAL (17:42)
[2021-05-16] MEDS: Atorvastatin Calcium 40 MG Tablet PO (21:24)
[2021-05-17] MEDS: Acetaminophen 500 MG Tablet 1000 MG PO ×3 (05:31→21:36)
[2021-05-17] MEDS: Polyethylene Glycol 3350 17 GM PACKET PO (05:31)
[2021-05-17 05:32] VITALS: BP 137/71; PULSE 86
[2021-05-17] MEDS: dilTIAZem CD 240 MG Capsule PO (05:32)
[2021-05-17] MEDS: levETIRAcetam 500 MG Tablet PO ×2 (05:32→17:25)
[2021-05-17] MEDS: Metoprolol Tartrate 25 MG Tablet PO ×2 (05:32→17:25)
[2021-05-17] MEDS: Menthol/Lanolin/Calamine/Znox 113 GM Tube 1 APPLIC TOPICAL ×2 (05:32→17:28)
[2021-05-17] MEDS: predniSONE 10 MG Tablet PO (05:32)
[2021-05-17] MEDS: Furosemide 20 MG Tablet PO (05:32)
[2021-05-17] MEDS: Senna/Docusate Sodium 1 Tablet 2 TABLET PO (05:32)
[2021-05-17] MEDS: Losartan Potassium 50 MG Tablet PO (05:32)
[2021-05-17] MEDS: Nystatin Powder 15gm Bottle 1 APPLIC TOPICAL ×2 (05:33→21:37)
[2021-05-17] MEDS: Sodium Chloride 0.65% 1 SPRAY SPRAY.BTL NASAL ×2 (05:33→17:26)
[2021-05-17 06:11] LABS: Hemoglobin 8.1 g/dL (12.0-15.0)
[2021-05-17] MEDS: Multivitamins,Ther W-Minerals Tablet 1 TABLET PO (08:55)
[2021-05-17] MEDS: Iron Polysaccharide Complex 150 MG CAPSULE PO (08:55)
[2021-05-17] MEDS: traMADol 50 MG Tablet PO ×2 (08:57→21:36)
--- NOTE | 2021-05-17 11:39 | NURSING ---
PT REFUSED TEDHOSE AND WANTED TO TRY YVONNE WRAPS DUE TO PT STATING THE SIMON HOSE WAS TO TIGHT ON HER FEET. RN AWARE
[2021-05-17 16:23] VITALS: BP 144/72; PULSE 85; RESP 14; TEMP 36.7; O2SAT 93
[2021-05-17 17:25] VITALS: BP 144/72; PULSE 85
[2021-05-17] MEDS: Rivaroxaban 20 MG Tablet PO (17:25)
[2021-05-17] MEDS: Atorvastatin Calcium 40 MG Tablet PO (21:36)
[2021-05-17 22:00] VITALS: PULSE 94; O2SAT 98
[2021-05-18] MEDS: traMADol 50 MG Tablet PO ×3 (03:41→23:14)
[2021-05-18 05:38] LABS: Hematocrit 26.2 % (37-47); Hemoglobin 8.2 g/dL (12.0-15.0)
[2021-05-18] MEDS: Furosemide 20 MG Tablet PO (05:45)
[2021-05-18] MEDS: levETIRAcetam 500 MG Tablet PO ×2 (05:45→16:55)
[2021-05-18] MEDS: dilTIAZem CD 240 MG Capsule PO (05:45)
[2021-05-18] MEDS: Acetaminophen 500 MG Tablet 1000 MG PO ×3 (05:45→20:52)
[2021-05-18] MEDS: predniSONE 10 MG Tablet PO (05:45)
[2021-05-18] MEDS: Losartan Potassium 50 MG Tablet PO (05:45)
[2021-05-18] MEDS: Nystatin Powder 15gm Bottle 1 APPLIC TOPICAL ×2 (05:46→16:56)
[2021-05-18] MEDS: Menthol/Lanolin/Calamine/Znox 113 GM Tube 1 APPLIC TOPICAL ×2 (05:46→16:56)
[2021-05-18] MEDS: Sodium Chloride 0.65% 1 SPRAY SPRAY.BTL NASAL ×2 (05:48→16:54)
[2021-05-18 05:49] VITALS: BP 130/70; PULSE 95
[2021-05-18] MEDS: Metoprolol Tartrate 25 MG Tablet PO ×2 (05:49→16:56)
[2021-05-18] MEDS: Iron Polysaccharide Complex 150 MG CAPSULE PO (08:02)
[2021-05-18] MEDS: Multivitamins,Ther W-Minerals Tablet 1 TABLET PO (08:02)
[2021-05-18 10:00] VITALS: O2SAT 94
[2021-05-18 14:10] VITALS: BP 139/62; PULSE 90; RESP 18; TEMP 36.3; O2SAT 97
[2021-05-18] MEDS: Rivaroxaban 20 MG Tablet PO (16:55)
[2021-05-18 16:56] VITALS: PULSE 90
[2021-05-18 17:10] VITALS: O2SAT 97
[2021-05-18] MEDS: Atorvastatin Calcium 40 MG Tablet PO (20:52)
[2021-05-19] MEDS: Acetaminophen 500 MG Tablet 1000 MG PO ×3 (05:00→21:54)
[2021-05-19] MEDS: Senna/Docusate Sodium 1 Tablet 2 TABLET PO ×2 (05:01→17:21)
[2021-05-19] MEDS: levETIRAcetam 500 MG Tablet PO ×2 (05:01→17:20)
[2021-05-19] MEDS: Losartan Potassium 50 MG Tablet PO (05:01)
[2021-05-19] MEDS: dilTIAZem CD 240 MG Capsule PO (05:01)
[2021-05-19] MEDS: Furosemide 20 MG Tablet PO (05:01)
[2021-05-19] MEDS: predniSONE 10 MG Tablet PO (05:01)
[2021-05-19 05:02] VITALS: BP 142/70; PULSE 94
[2021-05-19] MEDS: Metoprolol Tartrate 25 MG Tablet PO ×2 (05:02→17:20)
[2021-05-19] MEDS: Sodium Chloride 0.65% 1 SPRAY SPRAY.BTL NASAL ×2 (05:05→17:22)
[2021-05-19] MEDS: Nystatin Powder 15gm Bottle 1 APPLIC TOPICAL ×2 (05:06→22:06)
[2021-05-19] MEDS: Menthol/Lanolin/Calamine/Znox 113 GM Tube 1 APPLIC TOPICAL ×2 (05:06→17:24)
[2021-05-19] MEDS: traMADol 50 MG Tablet PO ×3 (05:15→21:49)
--- NOTE | 2021-05-19 05:18 | NURSING ---
Dressing to right hip incision changed at this time d/t falling off.
[2021-05-19] MEDS: Multivitamins,Ther W-Minerals Tablet 1 TABLET PO (07:52)
[2021-05-19] MEDS: Iron Polysaccharide Complex 150 MG CAPSULE PO (07:52)
--- NOTE | 2021-05-19 11:08 | NURSING ---
PT GIVEN PREVNOR 13 IN LEFT DELT.
[2021-05-19 13:26] VITALS: BP 115/68; PULSE 90; RESP 16; TEMP 36.6; O2SAT 98
--- NOTE | 2021-05-19 13:58 | CASEMGMT ---
BIMS and PHQ9 interviews completed on this date for MDS assessment. RERE Eddy
[2021-05-19 15:25] VITALS: O2SAT 97
--- NOTE | 2021-05-19 16:14 | CHAPLAIN ---
Type of Pastoral Visit _x__ Initial Visit ___ Follow-up Visit ___ On-call Visit ___ General Patient Visit ___ Spiritual Assessment ___ Family Conference ___ Bereavement ___ Rapid Response ___ Code Blue ___ Other (describe below) Pastoral Care Referral From _x__ Patient ___ Family ___ Nurse ___ Physician ___ Hair Stylist ___ Principal Consulting Engineer ___ Other (describe below) Sacrament/Intervention _x__ Active listening ___ Anointing ___ Gnosticism ___ Bereavement ___ Communion _x__ Najma exploration ___ _x__ Life review _x__ Prayer ___ Reconciliation ___ Sacrament of Sick _x__ Supportive presence ___ Wedding ___ Other (describe below) Pastoral Comments patient is talkative and welcoming, giving much information on life and hardships; pt is of the [employer] najma and practices that personally now as she is mostly unable to attend services; pt lives with her son and dil;
[2021-05-19] MEDS: Rivaroxaban 20 MG Tablet PO (17:19)
[2021-05-19 17:20] VITALS: BP 115/68; PULSE 90
[2021-05-19] MEDS: Atorvastatin Calcium 40 MG Tablet PO (21:54)
[2021-05-20] MEDS: traMADol 50 MG Tablet PO ×3 (04:02→19:56)
[2021-05-20 05:22] VITALS: BP 124/76; PULSE 102
[2021-05-20] MEDS: Polyethylene Glycol 3350 17 GM PACKET PO (05:22)
[2021-05-20] MEDS: Metoprolol Tartrate 25 MG Tablet PO ×2 (05:22→17:13)
[2021-05-20] MEDS: levETIRAcetam 500 MG Tablet PO ×2 (05:22→17:11)
[2021-05-20] MEDS: Furosemide 20 MG Tablet PO (05:22)
[2021-05-20] MEDS: Losartan Potassium 50 MG Tablet PO (05:22)
[2021-05-20] MEDS: Senna/Docusate Sodium 1 Tablet 2 TABLET PO ×2 (05:23→17:12)
[2021-05-20] MEDS: Sodium Chloride 0.65% 1 SPRAY SPRAY.BTL NASAL ×2 (05:23→17:12)
[2021-05-20] MEDS: predniSONE 10 MG Tablet PO (05:23)
[2021-05-20] MEDS: Acetaminophen 500 MG Tablet 1000 MG PO ×3 (05:23→19:56)
[2021-05-20] MEDS: dilTIAZem CD 240 MG Capsule PO (05:23)
[2021-05-20] MEDS: Menthol/Lanolin/Calamine/Znox 113 GM Tube 1 APPLIC TOPICAL ×2 (05:24→17:14)
[2021-05-20] MEDS: Nystatin Powder 15gm Bottle 1 APPLIC TOPICAL ×2 (05:24→20:13)
[2021-05-20 05:49] LABS: Hemoglobin 8.7 g/dL (12.0-15.0)
[2021-05-20] MEDS: Multivitamins,Ther W-Minerals Tablet 1 TABLET PO (08:01)
[2021-05-20] MEDS: Iron Polysaccharide Complex 150 MG CAPSULE PO (08:01)
[2021-05-20 13:11] VITALS: BP 126/61; PULSE 92; RESP 16; TEMP 36.1; O2SAT 99
--- NOTE | 2021-05-20 15:48 | CASEMGMT ---
Social Work Plan of care meeting held with pt and her son Kumar present. Pt is receiving PT/OT and progressing with therapy. Pt pain is limiting her function at this time. No discharge date is set at this time. Pt lives with her son Kumar and plans to return there upon discharge. Pt is home alone during the day while Kumar is at work. Will continue with treatment plan at this time with continued stay on TCU. RERE Eddy
[2021-05-20] MEDS: Rivaroxaban 20 MG Tablet PO (17:11)
[2021-05-20 17:13] VITALS: BP 126/61; PULSE 92
[2021-05-20] MEDS: Atorvastatin Calcium 40 MG Tablet PO (19:56)
[2021-05-20] MEDS: Lidocaine 5% Patch 1 PATCH TOPICAL (22:28)
[2021-05-20 22:36] VITALS: PULSE 61; RESP 16; O2SAT 98
[2021-05-21] MEDS: traMADol 50 MG Tablet PO ×3 (03:29→17:13)
[2021-05-21 05:44] LABS: Absolute Lymphocyte Count 1.29 X10^3/uL (0.83-4.51); Absolute Neutrophil Count 5.6 X10^3/uL (2.0-7.7); Basophil# 0.03 X10^3/uL; Basophil% 0.4 % (0-1); Eosinophil# 0.17 X10^3/uL; Eosinophils% 2.1 % (0-5); Hematocrit 27.7 % (37-47); Hemoglobin 8.5 g/dL (12.0-15.0); Lymphocyte # 1.29 X10^3/ul (0.83-4.51); Lymphocyte % 15.9 % (19-41); Mean Corp Hgb Conc 30.7 g/dL (32-36); Mean Corpuscular Hgb 34.8 pg (27.0-32.0); Mean Corpuscular Volume 113.5 fL (81-99); Mean Platelet Vol. 9.7 fl (6.2-12.0); Monocyte# 1.01 X10^3/uL; Monocyte% 12.4 % (0-10); NRBC Flagged by Analyzer 0.2 % (0-5); Neutrophil # 5.59 X10^3/uL (2.7-7.7); Neutrophil % 68.7 % (47-70); Platelet Count 300 K/mm3 (150-450); RBC Distribution Width CV 15.3 % (11.6-14.6); RBC Distribution Width SD 56.5 fl (35.1-43.9); Red Blood Count 2.44 M/mm3 (4.2-5.4); White Blood Count 8.1 K/mm3 (4.4-11.0)
[2021-05-21 05:57] VITALS: BP 143/79; PULSE 98; RESP 16; TEMP 36.7; O2SAT 98
[2021-05-21 05:58] VITALS: BP 143/79; PULSE 98
[2021-05-21] MEDS: Metoprolol Tartrate 25 MG Tablet PO ×2 (05:58→17:09)
[2021-05-21] MEDS: Acetaminophen 500 MG Tablet 1000 MG PO ×3 (05:58→20:41)
[2021-05-21] MEDS: levETIRAcetam 500 MG Tablet PO ×2 (05:58→17:08)
[2021-05-21] MEDS: Losartan Potassium 50 MG Tablet PO (05:58)
[2021-05-21] MEDS: dilTIAZem CD 240 MG Capsule PO (05:58)
[2021-05-21] MEDS: Furosemide 20 MG Tablet PO (05:58)
[2021-05-21] MEDS: Senna/Docusate Sodium 1 Tablet 2 TABLET PO ×2 (05:59→17:09)
[2021-05-21] MEDS: Polyethylene Glycol 3350 17 GM PACKET PO (05:59)
[2021-05-21] MEDS: Sodium Chloride 0.65% 1 SPRAY SPRAY.BTL NASAL ×2 (06:00→17:10)
[2021-05-21] MEDS: Nystatin Powder 15gm Bottle 1 APPLIC TOPICAL ×2 (06:00→17:14)
[2021-05-21] MEDS: Menthol/Lanolin/Calamine/Znox 113 GM Tube 1 APPLIC TOPICAL ×2 (06:01→17:13)
--- NOTE | 2021-05-21 06:02 | NURSING ---
Addendum entered by Vira Cagle 05/21/21 08:08: Nicholas Bedoya updated and N.O. Roxanol 5mg Po QHS PRN Original Note: Patient awake all night. [id number] I cannot sleep from all the pain. Patient was given PRN analgesic per order. Patient requesting something stronger for pain at HS. Left note for Dr. Peterson.
[2021-05-21 06:25] LABS: Anion Gap 2 (5-15); BUN 21 mg/dL (7-18); BUN/Creat Ratio 33.1 RATIO (10-20); Calcium,Total 8.5 mg/dL (8.5-10.1); Chloride 104 mmol/L (98-107); Creatinine, Serum 0.63 mg/dL (0.55-1.02); EST Glomerular Filtration Rate 94 mL/min (>60); Est Glom Filt Rate - Afr Amer 114 mL/min (>60); Estimated Creatinine Clearance 31.94 ml/min; Glucose 109 mg/dL (74-106); Potassium 3.7 mmol/L (3.5-5.1); Sodium Level 141 mmol/L (136-145)
[2021-05-21] MEDS: Multivitamins,Ther W-Minerals Tablet 1 TABLET PO (08:54)
[2021-05-21] MEDS: Iron Polysaccharide Complex 150 MG CAPSULE PO (08:54)
--- NOTE | 2021-05-21 12:23 | NURSING ---
Family unable to transport to appointment with Dr. Lee, requesting w/c transport set up through ambulance service, family will meet pt at appointment with Yin Abdullahi on 05/26/21. CORRIDOR REDEVELOPMENT MANAGER competitive intelligence manager updated on need for transport.
[2021-05-21] MEDS: Tuberculin,Purif.prot.deriv. 50 TU/ML Vial 0.1 ML ID (13:05)
[2021-05-21 13:35] VITALS: BP 124/72; PULSE 88; RESP 18; TEMP 36.3; O2SAT 98
--- NOTE | 2021-05-21 13:37 | NURSING ---
Addendum entered by Vira Cagle 05/21/21 18:44: Wound culture collected and sent to lab Addendum entered by Vira Cagle 05/21/21 17:58: N.O. Doxycycline 100mg BID x7 days and Keflex 500mg BID x 7 days and wound culture. Original Note: Moderate amount of serosanguineous drainage noted to right hip, no redness noted but area is covered with ecchymosis. Lott intact and remains well approximated, therapy reported to this nurse that patient is having increased pain to hip which is affecting her therapy. Pt participated in physical therapy but refused occupational therapy this morning because of her pain. Message left for Dr. Peterson for onset of increased pain and drainage.
[2021-05-21] MEDS: Rivaroxaban 20 MG Tablet PO (17:08)
[2021-05-21 17:09] VITALS: PULSE 88
[2021-05-21] MEDS: Doxycycline 100 MG CAPSULE PO (18:30)
[2021-05-21] MEDS: Cephalexin 500 MG Capsule PO (18:30)
[2021-05-21] MEDS: morphine (oral solution) 10MG/0.5ML Syringe 5 MG PO (20:41)
[2021-05-21] MEDS: Atorvastatin Calcium 40 MG Tablet PO (20:42)
[2021-05-21] MEDS: Lidocaine 5% Patch 1 PATCH TOPICAL (20:43)
[2021-05-22] MEDS: traMADol 50 MG Tablet PO ×3 (00:18→17:27)
[2021-05-22] MEDS: Nystatin Powder 15gm Bottle 1 APPLIC TOPICAL ×2 (05:03→17:32)
[2021-05-22] MEDS: Sodium Chloride 0.65% 1 SPRAY SPRAY.BTL NASAL ×2 (05:03→17:32)
[2021-05-22] MEDS: Menthol/Lanolin/Calamine/Znox 113 GM Tube 1 APPLIC TOPICAL ×2 (05:04→17:31)
[2021-05-22 05:05] VITALS: BP 128/68; PULSE 88
[2021-05-22] MEDS: Furosemide 20 MG Tablet PO (05:05)
[2021-05-22] MEDS: levETIRAcetam 500 MG Tablet PO ×2 (05:05→17:31)
[2021-05-22] MEDS: Losartan Potassium 50 MG Tablet PO (05:05)
[2021-05-22] MEDS: Metoprolol Tartrate 25 MG Tablet PO ×2 (05:05→17:30)
[2021-05-22] MEDS: Doxycycline 100 MG CAPSULE PO ×2 (05:05→17:31)
[2021-05-22] MEDS: dilTIAZem CD 240 MG Capsule PO (05:06)
[2021-05-22] MEDS: Acetaminophen 500 MG Tablet 1000 MG PO ×3 (05:06→21:49)
[2021-05-22] MEDS: Cephalexin 500 MG Capsule PO ×2 (05:06→17:31)
[2021-05-22] MEDS: Senna/Docusate Sodium 1 Tablet 2 TABLET PO ×2 (05:07→17:30)
[2021-05-22 05:52] LABS: Hematocrit 30.1 % (37-47); Hemoglobin 9.1 g/dL (12.0-15.0)
[2021-05-22] MEDS: Iron Polysaccharide Complex 150 MG CAPSULE PO (09:00)
[2021-05-22] MEDS: Multivitamins,Ther W-Minerals Tablet 1 TABLET PO (09:00)
--- NOTE | 2021-05-22 13:37 | NURSING ---
PT REQUESTING TO HAVE ROXANOL DURING DAY AND NOT JUST AT HS. DR LEUNG NOTIFIED AND NEW ORDER RECEIVED TO GIVE ROXANOL Q4HR PRN.
[2021-05-22] MEDS: morphine (oral solution) 10MG/0.5ML Syringe 5 MG PO ×2 (13:53→22:11)
--- NOTE | 2021-05-22 14:01 | NURSING ---
ortho called and changed appt for to Tue at 1045. family updated. transport changed through [facility], they will pickle solution maker @ [phone].
[2021-05-22 16:00] VITALS: BP 110/53; PULSE 95; RESP 18; TEMP 36.3; O2SAT 90
[2021-05-22 17:30] VITALS: BP 110/53; PULSE 95
[2021-05-22] MEDS: Rivaroxaban 20 MG Tablet PO (17:31)
[2021-05-22] MEDS: Lidocaine 5% Patch 1 PATCH TOPICAL (21:48)
[2021-05-22] MEDS: Atorvastatin Calcium 40 MG Tablet PO (21:50)
[2021-05-23 04:54] VITALS: BP 122/60; PULSE 96
[2021-05-23 05:02] VITALS: BP 122/60; PULSE 96
[2021-05-23] MEDS: Senna/Docusate Sodium 1 Tablet 2 TABLET PO ×2 (05:02→17:47)
[2021-05-23] MEDS: Doxycycline 100 MG CAPSULE PO ×2 (05:02→17:46)
[2021-05-23] MEDS: Losartan Potassium 50 MG Tablet PO (05:02)
[2021-05-23] MEDS: Furosemide 20 MG Tablet PO (05:02)
[2021-05-23] MEDS: Metoprolol Tartrate 25 MG Tablet PO ×2 (05:02→17:46)
[2021-05-23] MEDS: Acetaminophen 500 MG Tablet 1000 MG PO ×3 (05:02→21:32)
[2021-05-23] MEDS: dilTIAZem CD 240 MG Capsule PO (05:02)
[2021-05-23] MEDS: Cephalexin 500 MG Capsule PO ×2 (05:02→17:46)
[2021-05-23] MEDS: Sodium Chloride 0.65% 1 SPRAY SPRAY.BTL NASAL ×2 (05:04→17:47)
[2021-05-23] MEDS: Menthol/Lanolin/Calamine/Znox 113 GM Tube 1 APPLIC TOPICAL ×2 (05:05→17:51)
[2021-05-23] MEDS: Nystatin Powder 15gm Bottle 1 APPLIC TOPICAL ×2 (05:06→17:51)
[2021-05-23] MEDS: levETIRAcetam 500 MG Tablet PO ×2 (05:06→17:46)
[2021-05-23] MEDS: traMADol 50 MG Tablet PO (05:08)
[2021-05-23] MEDS: Iron Polysaccharide Complex 150 MG CAPSULE PO (08:08)
[2021-05-23] MEDS: Multivitamins,Ther W-Minerals Tablet 1 TABLET PO (08:08)
[2021-05-23] MEDS: morphine (oral solution) 10MG/0.5ML Syringe 5 MG PO ×3 (08:12→21:33)
[2021-05-23 11:29] VITALS: BP 104/53; PULSE 86; RESP 18; TEMP 36.5; O2SAT 90
[2021-05-23 11:45] VITALS: O2SAT 91
--- NOTE | 2021-05-23 11:54 | NURSING ---
Pt placed in contact precautions for gram positive cocci detected in hip incision.
[2021-05-23 17:46] VITALS: BP 119/54; PULSE 89
[2021-05-23] MEDS: Rivaroxaban 20 MG Tablet PO (17:46)
[2021-05-23] MEDS: Lidocaine 5% Patch 1 PATCH TOPICAL (21:31)
[2021-05-23] MEDS: Atorvastatin Calcium 40 MG Tablet PO (21:32)
[2021-05-24 05:00] VITALS: BP 115/58; PULSE 92; RESP 16; TEMP 36.3; O2SAT 98
[2021-05-24] MEDS: dilTIAZem CD 240 MG Capsule PO (05:00)
[2021-05-24] MEDS: Furosemide 20 MG Tablet PO (05:00)
[2021-05-24] MEDS: Doxycycline 100 MG CAPSULE PO ×2 (05:00→17:02)
[2021-05-24] MEDS: Senna/Docusate Sodium 1 Tablet 2 TABLET PO ×2 (05:00→17:01)
[2021-05-24] MEDS: Metoprolol Tartrate 25 MG Tablet PO (05:00)
[2021-05-24] MEDS: Acetaminophen 500 MG Tablet 1000 MG PO ×3 (05:00→20:14)
[2021-05-24] MEDS: Cephalexin 500 MG Capsule PO ×2 (05:00→17:02)
[2021-05-24] MEDS: levETIRAcetam 500 MG Tablet PO ×2 (05:00→17:01)
[2021-05-24] MEDS: Losartan Potassium 50 MG Tablet PO (05:00)
[2021-05-24] MEDS: morphine (oral solution) 10MG/0.5ML Syringe 5 MG PO ×3 (05:03→22:32)
[2021-05-24] MEDS: Menthol/Lanolin/Calamine/Znox 113 GM Tube 1 APPLIC TOPICAL ×2 (05:04→17:03)
[2021-05-24] MEDS: Sodium Chloride 0.65% 1 SPRAY SPRAY.BTL NASAL ×2 (05:05→17:03)
[2021-05-24] MEDS: Nystatin Powder 15gm Bottle 1 APPLIC TOPICAL ×2 (05:05→17:03)
[2021-05-24 05:40] LABS: Hematocrit 32.4 % (37-47); Hemoglobin 10.2 g/dL (12.0-15.0)
[2021-05-24] MEDS: Multivitamins,Ther W-Minerals Tablet 1 TABLET PO (08:02)
[2021-05-24] MEDS: Iron Polysaccharide Complex 150 MG CAPSULE PO (08:02)
[2021-05-24 14:22] VITALS: O2SAT 93
[2021-05-24] MEDS: Rivaroxaban 20 MG Tablet PO (17:00)
[2021-05-24 18:06] VITALS: BP 117/50; PULSE 80
[2021-05-24 18:30] VITALS: BP 97/46; PULSE 88
[2021-05-24 20:01] VITALS: BP 109/44; PULSE 84; PULSE 85; RESP 16; TEMP 37.1; O2SAT 98
[2021-05-24] MEDS: Atorvastatin Calcium 40 MG Tablet PO (20:14)
[2021-05-24] MEDS: Lidocaine 5% Patch 1 PATCH TOPICAL (20:14)
[2021-05-24 20:21] VITALS: BP 104/43; PULSE 84; RESP 16; O2SAT 98
--- NOTE | 2021-05-24 21:14 | NURSING ---
Dr. Peterson updated on pt's low BPs, dark urine, low fluid intake. Order for NS @75/hr for total of 1L and to DC everardo.
[2021-05-24] MEDS: 0.9% Normal Saline 1,000 ML 75 ML IV (22:32)
[2021-05-24] MEDS: 0.9% Saline Lock 10 ML Syringe IV (22:33)
--- NOTE | 2021-05-25 00:22 | NURSING ---
After reviewing patients wound culture results. According to [facility]'s PolicyStat. Infection Control and Prevention: Standard and Transmission Based Precautions the Organism Enterococcus faecalis is not listed as a a precaution. Patient will not be in contact isolation any more.
[2021-05-25] MEDS: traMADol 50 MG Tablet PO ×3 (01:23→17:42)
--- NOTE | 2021-05-25 01:28 | NURSING ---
Pt calls reporting numbness to BLE. Toes mobile throughout assessment. Skin warm to RLE, slightly cool to LLE. Pedal and post tibial pulses +1 bilateral. Skin is not pallor or dusky. Brown discoloration to BLE. Cap refill < 3 seconds. HOB slightly lowered to help alleviate symptoms. In no acute distress. Unable to understand pain scale. Face scale 6/10 and medicated w/ Tramadol per dr order. Call light w/ in reach.
[2021-05-25 05:25] VITALS: BP 129/64; PULSE 91
[2021-05-25 05:27] VITALS: BP 129/64; PULSE 91
[2021-05-25] MEDS: Polyethylene Glycol 3350 17 GM PACKET PO (05:27)
[2021-05-25] MEDS: Metoprolol Tartrate 25 MG Tablet PO ×2 (05:27→17:37)
[2021-05-25] MEDS: Acetaminophen 500 MG Tablet 1000 MG PO ×3 (05:27→20:29)
[2021-05-25] MEDS: Senna/Docusate Sodium 1 Tablet 2 TABLET PO ×2 (05:28→17:38)
[2021-05-25] MEDS: Sodium Chloride 0.65% 1 SPRAY SPRAY.BTL NASAL ×2 (05:29→17:38)
[2021-05-25] MEDS: dilTIAZem CD 240 MG Capsule PO (05:29)
[2021-05-25] MEDS: Doxycycline 100 MG CAPSULE PO ×2 (05:29→17:36)
[2021-05-25] MEDS: Cephalexin 500 MG Capsule PO ×2 (05:29→17:37)
[2021-05-25] MEDS: Furosemide 20 MG Tablet PO (05:29)
[2021-05-25] MEDS: levETIRAcetam 500 MG Tablet PO ×2 (05:29→17:36)
[2021-05-25] MEDS: Menthol/Lanolin/Calamine/Znox 113 GM Tube 1 APPLIC TOPICAL ×2 (05:30→17:43)
[2021-05-25] MEDS: Nystatin Powder 15gm Bottle 1 APPLIC TOPICAL ×2 (05:30→20:34)
[2021-05-25] MEDS: morphine (oral solution) 10MG/0.5ML Syringe 5 MG PO ×2 (05:34→20:33)
--- NOTE | 2021-05-25 08:29 | PCA ---
[facility] Called at 8:28am to verify pickup time/location. Heidi explained to me that they do not have a w/c transport in area at this time. so pt will be going in a cot but [facility] will be billed for Wheelchair transport.
[2021-05-25] MEDS: Multivitamins,Ther W-Minerals Tablet 1 TABLET PO (08:45)
[2021-05-25] MEDS: Iron Polysaccharide Complex 150 MG CAPSULE PO (08:45)
[2021-05-25 09:50] VITALS: PULSE 71; RESP 18; O2SAT 94
--- NOTE | 2021-05-25 09:58 | NURSING ---
PT LEFT BY COT AT 10AM FOR DOCTOR APPOINTMENT WITH .
--- NOTE | 2021-05-25 10:04 | MDS.RN ---
Information for the mds was obtained from review of the clinical record, interview of resident, staff, and direct observation of resident's care.
--- NOTE | 2021-05-25 11:31 | NURSING ---
pt returned from ortho appt, transport staff reported pt needs to f/u 2 wks and bradley were removed.
--- NOTE | 2021-05-25 11:37 | NURSING ---
PT RETURNED FROM APPOINTMENT AT 11:35 BY COT. SON WITH HER.
[2021-05-25] MEDS: 0.9% Saline Lock 10 ML Syringe IV ×2 (11:59→16:31)
--- NOTE | 2021-05-25 12:02 | NURSING ---
APPLIED A COUPLE STERI STRIPS TO PT HIP INCISION. LORI TAKEN OUT AT DR.OFFICE. SMALL AMOUNT OF YELLOW DRAINAGE. APPLIED NEW DRESSINGS. RN AWARE.
[2021-05-25 16:02] VITALS: BP 128/63; PULSE 81; RESP 16; TEMP 36.8; O2SAT 98
[2021-05-25] MEDS: Rivaroxaban 20 MG Tablet PO (17:36)
[2021-05-25 17:37] VITALS: BP 128/63; PULSE 81
[2021-05-25] MEDS: Atorvastatin Calcium 40 MG Tablet PO (20:29)
[2021-05-25] MEDS: Lidocaine 5% Patch 1 PATCH TOPICAL (20:29)
[2021-05-26] MEDS: morphine (oral solution) 10MG/0.5ML Syringe 5 MG PO (02:38)
[2021-05-26 05:02] VITALS: BP 134/75; PULSE 85
[2021-05-26] MEDS: Senna/Docusate Sodium 1 Tablet 2 TABLET PO ×2 (05:02→17:45)
[2021-05-26] MEDS: traMADol 50 MG Tablet PO ×3 (05:02→20:46)
[2021-05-26] MEDS: Metoprolol Tartrate 25 MG Tablet PO ×2 (05:02→17:51)
[2021-05-26] MEDS: Polyethylene Glycol 3350 17 GM PACKET PO (05:03)
[2021-05-26] MEDS: Cephalexin 500 MG Capsule PO ×2 (05:03→17:44)
[2021-05-26] MEDS: Sodium Chloride 0.65% 1 SPRAY SPRAY.BTL NASAL ×2 (05:03→17:46)
[2021-05-26] MEDS: levETIRAcetam 500 MG Tablet PO ×2 (05:03→17:45)
[2021-05-26] MEDS: Furosemide 20 MG Tablet PO (05:03)
[2021-05-26] MEDS: dilTIAZem CD 240 MG Capsule PO (05:03)
[2021-05-26] MEDS: Acetaminophen 500 MG Tablet 1000 MG PO ×3 (05:03→20:40)
[2021-05-26] MEDS: Doxycycline 100 MG CAPSULE PO ×2 (05:03→17:44)
[2021-05-26] MEDS: Menthol/Lanolin/Calamine/Znox 113 GM Tube 1 APPLIC TOPICAL ×2 (05:05→17:46)
[2021-05-26] MEDS: Nystatin Powder 15gm Bottle 1 APPLIC TOPICAL ×2 (05:06→20:39)
[2021-05-26 07:46] VITALS: O2SAT 94
[2021-05-26] MEDS: morphine (oral solution) 10MG/0.5ML Syringe 10 MG PO ×2 (08:26→17:50)
[2021-05-26] MEDS: Multivitamins,Ther W-Minerals Tablet 1 TABLET PO (08:28)
[2021-05-26] MEDS: Iron Polysaccharide Complex 150 MG CAPSULE PO (08:28)
[2021-05-26] MEDS: 0.9% Saline Lock 10 ML Syringe IV (10:06)
--- NOTE | 2021-05-26 14:07 | NURSING ---
Resident and [id number], Carlos notified of COVID status on the unit.
[2021-05-26 16:21] VITALS: BP 101/52; PULSE 77; RESP 18; TEMP 36.3; O2SAT 93
[2021-05-26] MEDS: Rivaroxaban 20 MG Tablet PO (17:44)
[2021-05-26 17:51] VITALS: BP 111/57; PULSE 80
[2021-05-26 17:56] VITALS: BP 111/57; PULSE 80
[2021-05-26] MEDS: Lidocaine 5% Patch 1 PATCH TOPICAL (20:39)
[2021-05-26] MEDS: Atorvastatin Calcium 40 MG Tablet PO (20:40)
[2021-05-27] MEDS: Sodium Chloride 0.65% 1 SPRAY SPRAY.BTL NASAL ×2 (05:05→17:27)
[2021-05-27] MEDS: Polyethylene Glycol 3350 17 GM PACKET PO (05:05)
[2021-05-27] MEDS: levETIRAcetam 500 MG Tablet PO ×2 (05:06→17:28)
[2021-05-27] MEDS: Furosemide 20 MG Tablet PO (05:06)
[2021-05-27] MEDS: Doxycycline 100 MG CAPSULE PO ×2 (05:06→17:28)
[2021-05-27] MEDS: Senna/Docusate Sodium 1 Tablet 2 TABLET PO ×2 (05:06→17:27)
[2021-05-27] MEDS: Acetaminophen 500 MG Tablet 1000 MG PO ×3 (05:06→20:08)
[2021-05-27] MEDS: dilTIAZem CD 240 MG Capsule PO (05:06)
[2021-05-27] MEDS: Cephalexin 500 MG Capsule PO ×2 (05:06→17:28)
[2021-05-27] MEDS: traMADol 50 MG Tablet PO ×3 (05:06→20:09)
[2021-05-27] MEDS: Menthol/Lanolin/Calamine/Znox 113 GM Tube 1 APPLIC TOPICAL ×2 (05:07→17:30)
[2021-05-27] MEDS: Nystatin Powder 15gm Bottle 1 APPLIC TOPICAL ×2 (05:07→20:07)
[2021-05-27 05:11] VITALS: BP 121/79; PULSE 84
[2021-05-27] MEDS: Metoprolol Tartrate 25 MG Tablet PO ×2 (05:11→17:28)
--- NOTE | 2021-05-27 07:35 | NURSING ---
Dc'd SL to rt forearm d/t infiltration, tip intact, pt tolerated well. sitting in recliner at this time, call light within reach. RN aware.
[2021-05-27] MEDS: Multivitamins,Ther W-Minerals Tablet 1 TABLET PO (09:34)
[2021-05-27] MEDS: Iron Polysaccharide Complex 150 MG CAPSULE PO (09:34)
[2021-05-27 10:20] VITALS: PULSE 74; RESP 18; O2SAT 93
--- NOTE | 2021-05-27 13:28 | NURSING ---
PT CONTINUES TO STATE HER PAIN IS A 8/10 EACH TIME WHEN ASKED. PRN MEDS AND SCHEDULED CONTINUE TO BE GIVEN AND STILL SAYS 8/10. BUT PT NEVER SHOWS AND GRIMACING OR ETC WITH THE PAIN SHE STATES. RN AWARE.
[2021-05-27 16:00] VITALS: BP 111/70; PULSE 74; RESP 18; TEMP 36.1; O2SAT 93
[2021-05-27 17:28] VITALS: BP 111/70; PULSE 74
[2021-05-27] MEDS: Rivaroxaban 20 MG Tablet PO (17:29)
[2021-05-27] MEDS: Lidocaine 5% Patch 1 PATCH TOPICAL (20:07)
[2021-05-27] MEDS: Atorvastatin Calcium 40 MG Tablet PO (20:08)
[2021-05-27] MEDS: morphine (oral solution) 10MG/0.5ML Syringe 10 MG PO (22:14)
[2021-05-28] MEDS: traMADol 50 MG Tablet PO ×2 (04:02→20:36)
[2021-05-28 05:38] LABS: Absolute Lymphocyte Count 1.04 X10^3/uL (0.83-4.51); Absolute Neutrophil Count 2.9 X10^3/uL (2.0-7.7); Basophil# 0.01 X10^3/uL; Basophil% 0.2 % (0-1); Eosinophil# 0.13 X10^3/uL; Eosinophils% 2.8 % (0-5); Hematocrit 30.9 % (37-47); Hemoglobin 9.6 g/dL (12.0-15.0); Lymphocyte # 1.04 X10^3/ul (0.83-4.51); Lymphocyte % 22.4 % (19-41); Mean Corp Hgb Conc 31.1 g/dL (32-36); Mean Corpuscular Hgb 36.4 pg (27.0-32.0); Mean Platelet Vol. 9.6 fl (6.2-12.0); Monocyte# 0.58 X10^3/uL; Monocyte% 12.5 % (0-10); NRBC Flagged by Analyzer 0 % (0-5); Neutrophil # 2.88 X10^3/uL (2.7-7.7); Neutrophil % 61.9 % (47-70); POSITIVE MORPHOLOGY YES; Platelet Count 265 K/mm3 (150-450); RBC Distribution Width CV 18.4 % (11.6-14.6); RBC Distribution Width SD 77.1 fl (35.1-43.9); Red Blood Count 2.64 M/mm3 (4.2-5.4); White Blood Count 4.7 K/mm3 (4.4-11.0)
[2021-05-28 05:43] LABS: Differential Indicated SCAN CRITERIA MET
[2021-05-28] MEDS: Polyethylene Glycol 3350 17 GM PACKET PO (05:52)
[2021-05-28 05:53] VITALS: BP 122/79; PULSE 107
[2021-05-28] MEDS: Metoprolol Tartrate 25 MG Tablet PO ×2 (05:53→17:41)
[2021-05-28] MEDS: Senna/Docusate Sodium 1 Tablet 2 TABLET PO ×2 (05:53→17:42)
[2021-05-28] MEDS: levETIRAcetam 500 MG Tablet PO ×2 (05:53→17:41)
[2021-05-28] MEDS: Sodium Chloride 0.65% 1 SPRAY SPRAY.BTL NASAL ×2 (05:53→17:42)
[2021-05-28] MEDS: dilTIAZem CD 240 MG Capsule PO (05:54)
[2021-05-28] MEDS: Menthol/Lanolin/Calamine/Znox 113 GM Tube 1 APPLIC TOPICAL ×2 (05:54→17:44)
[2021-05-28] MEDS: Furosemide 20 MG Tablet PO (05:54)
[2021-05-28] MEDS: Doxycycline 100 MG CAPSULE PO ×2 (05:54→17:41)
[2021-05-28] MEDS: Cephalexin 500 MG Capsule PO ×2 (05:54→17:41)
[2021-05-28] MEDS: Acetaminophen 500 MG Tablet 1000 MG PO ×3 (05:54→20:35)
[2021-05-28] MEDS: Nystatin Powder 15gm Bottle 1 APPLIC TOPICAL ×2 (05:54→17:44)
[2021-05-28 06:01] LABS: Anion Gap 1 (5-15); BUN 24 mg/dL (7-18); Calcium,Total 8.5 mg/dL (8.5-10.1); Chloride 106 mmol/L (98-107); Creatinine, Serum 0.54 mg/dL (0.55-1.02); EST Glomerular Filtration Rate 112 mL/min (>60); Est Glom Filt Rate - Afr Amer 136 mL/min (>60); Estimated Creatinine Clearance 31.94 ml/min; Glucose 104 mg/dL (74-106); Sodium Level 141 mmol/L (136-145)
[2021-05-28 06:18] LABS: Anisocytosis 3+; Differential Comment SCANNED
[2021-05-28 06:19] LABS: Macrocytosis 3+; Polychromasia RARE
[2021-05-28] MEDS: Multivitamins,Ther W-Minerals Tablet 1 TABLET PO (07:56)
[2021-05-28] MEDS: Iron Polysaccharide Complex 150 MG CAPSULE PO (07:56)
[2021-05-28 13:24] VITALS: BP 114/52; PULSE 69; RESP 16; TEMP 35.7; O2SAT 92
[2021-05-28] MEDS: Rivaroxaban 20 MG Tablet PO (17:40)
[2021-05-28 17:41] VITALS: BP 123/76; PULSE 81
[2021-05-28] MEDS: morphine (oral solution) 10MG/0.5ML Syringe 10 MG PO (17:45)
[2021-05-28] MEDS: Lidocaine 5% Patch 1 PATCH TOPICAL (20:34)
[2021-05-28] MEDS: Atorvastatin Calcium 40 MG Tablet PO (20:35)
[2021-05-28 22:00] VITALS: PULSE 70; O2SAT 92
[2021-05-29] MEDS: Senna/Docusate Sodium 1 Tablet 2 TABLET PO ×2 (05:10→17:18)
[2021-05-29] MEDS: Polyethylene Glycol 3350 17 GM PACKET PO (05:12)
[2021-05-29] MEDS: Sodium Chloride 0.65% 1 SPRAY SPRAY.BTL NASAL ×2 (05:12→17:20)
[2021-05-29] MEDS: Nystatin Powder 15gm Bottle 1 APPLIC TOPICAL ×2 (05:13→17:24)
[2021-05-29] MEDS: dilTIAZem CD 240 MG Capsule PO (05:13)
[2021-05-29] MEDS: levETIRAcetam 500 MG Tablet PO ×2 (05:13→17:18)
[2021-05-29] MEDS: Acetaminophen 500 MG Tablet 1000 MG PO ×3 (05:13→21:23)
[2021-05-29] MEDS: Menthol/Lanolin/Calamine/Znox 113 GM Tube 1 APPLIC TOPICAL ×2 (05:13→17:24)
[2021-05-29 05:14] VITALS: BP 140/59; PULSE 92
[2021-05-29] MEDS: Furosemide 20 MG Tablet PO (05:14)
[2021-05-29] MEDS: Metoprolol Tartrate 25 MG Tablet PO ×2 (05:14→17:18)
[2021-05-29] MEDS: traMADol 50 MG Tablet PO (05:30)
[2021-05-29 06:24] VITALS: O2SAT 96
[2021-05-29] MEDS: Iron Polysaccharide Complex 150 MG CAPSULE PO (08:16)
[2021-05-29] MEDS: Multivitamins,Ther W-Minerals Tablet 1 TABLET PO (08:16)
[2021-05-29] MEDS: morphine (oral solution) 10MG/0.5ML Syringe 10 MG PO ×2 (13:15→21:30)
[2021-05-29 13:55] VITALS: BP 115/60; PULSE 76; RESP 16; TEMP 36.1; O2SAT 92
[2021-05-29] MEDS: Rivaroxaban 20 MG Tablet PO (17:17)
[2021-05-29 17:18] VITALS: PULSE 76
[2021-05-29] MEDS: Atorvastatin Calcium 40 MG Tablet PO (21:22)
[2021-05-29] MEDS: Lidocaine 5% Patch 1 PATCH TOPICAL (21:25)
[2021-05-30] MEDS: traMADol 50 MG Tablet PO ×3 (03:06→21:46)
[2021-05-30 05:39] VITALS: BP 136/63; PULSE 90; RESP 18; TEMP 36.8; O2SAT 97
[2021-05-30] MEDS: Senna/Docusate Sodium 1 Tablet 2 TABLET PO ×2 (05:44→16:48)
[2021-05-30] MEDS: Acetaminophen 500 MG Tablet 1000 MG PO ×3 (05:44→20:31)
[2021-05-30 05:45] VITALS: BP 136/63; PULSE 90
[2021-05-30] MEDS: dilTIAZem CD 240 MG Capsule PO (05:45)
[2021-05-30] MEDS: Metoprolol Tartrate 25 MG Tablet PO ×2 (05:45→16:48)
[2021-05-30] MEDS: Furosemide 20 MG Tablet PO (05:45)
[2021-05-30] MEDS: levETIRAcetam 500 MG Tablet PO ×2 (05:45→16:49)
[2021-05-30] MEDS: Nystatin Powder 15gm Bottle 1 APPLIC TOPICAL ×2 (05:46→16:48)
[2021-05-30] MEDS: Polyethylene Glycol 3350 17 GM PACKET PO (05:46)
[2021-05-30] MEDS: Sodium Chloride 0.65% 1 SPRAY SPRAY.BTL NASAL ×2 (05:46→16:49)
[2021-05-30] MEDS: Menthol/Lanolin/Calamine/Znox 113 GM Tube 1 APPLIC TOPICAL ×2 (05:47→16:48)
[2021-05-30] MEDS: Iron Polysaccharide Complex 150 MG CAPSULE PO (08:35)
[2021-05-30] MEDS: Multivitamins,Ther W-Minerals Tablet 1 TABLET PO (08:35)
[2021-05-30 16:48] VITALS: PULSE 85
[2021-05-30] MEDS: Rivaroxaban 20 MG Tablet PO (16:48)
[2021-05-30 16:59] VITALS: BP 137/68; PULSE 90; RESP 16; TEMP 36.4; O2SAT 97
[2021-05-30] MEDS: Lidocaine 5% Patch 1 PATCH TOPICAL (20:30)
[2021-05-30] MEDS: Atorvastatin Calcium 40 MG Tablet PO (20:31)
[2021-05-30 21:59] VITALS: PULSE 82; RESP 16
[2021-05-31] MEDS: Menthol/Lanolin/Calamine/Znox 113 GM Tube 1 APPLIC TOPICAL ×2 (04:47→18:42)
[2021-05-31] MEDS: Acetaminophen 500 MG Tablet 1000 MG PO ×3 (04:47→20:57)
[2021-05-31 04:48] VITALS: BP 144/74; PULSE 95
[2021-05-31] MEDS: Senna/Docusate Sodium 1 Tablet 2 TABLET PO ×2 (04:48→18:43)
[2021-05-31] MEDS: Metoprolol Tartrate 25 MG Tablet PO ×2 (04:48→18:43)
[2021-05-31] MEDS: dilTIAZem CD 240 MG Capsule PO (04:48)
[2021-05-31] MEDS: Furosemide 20 MG Tablet PO (04:48)
[2021-05-31] MEDS: levETIRAcetam 500 MG Tablet PO ×2 (04:48→18:42)
[2021-05-31] MEDS: Polyethylene Glycol 3350 17 GM PACKET PO (04:49)
[2021-05-31] MEDS: Nystatin Powder 15gm Bottle 1 APPLIC TOPICAL ×2 (04:49→18:43)
[2021-05-31] MEDS: Sodium Chloride 0.65% 1 SPRAY SPRAY.BTL NASAL ×2 (04:50→18:45)
[2021-05-31] MEDS: traMADol 50 MG Tablet PO ×3 (04:50→18:44)
[2021-05-31] MEDS: Multivitamins,Ther W-Minerals Tablet 1 TABLET PO (10:00)
[2021-05-31] MEDS: Iron Polysaccharide Complex 150 MG CAPSULE PO (10:00)
[2021-05-31] MEDS: morphine (oral solution) 10MG/0.5ML Syringe 10 MG PO ×3 (10:06→23:00)
--- NOTE | 2021-05-31 14:22 | NURSING ---
Patient complaining of BLE numbness, says it's long-term up both thighs. She reports that it is worse today, the numbness is moving further up her legs from yesterday. From previous documentation she has been reporting bilateral foot numbness. Legs/feet warm with palpable pulses. Updated Dr. Peterson, order for lumbar xrays and gabapentin 100mg TID.
[2021-05-31 14:43] VITALS: BP 122/67; PULSE 62; RESP 16; TEMP 35.6; O2SAT 92
--- NOTE | 2021-05-31 15:24 | RAD_ITS ---
STUDY: X-RAY - LUMBAR SPINE REASON FOR EXAM: Female, 85 years old. increasing numbness BLE TECHNIQUE: 5 view(s) of the lumbar spine were obtained. COMPARISON: None FINDINGS: Normal lumbar lordosis. There is no substantial scoliosis. There is a normal alignment of the vertebrae. No evidence for acute fracture or subluxation.. No lytic or sclerotic bony lesions are observed There is narrowing of L4-5 disc space and multilevel endplate spurring.. Diffuse vascular calcification is seen without evidence for aneurysm RAD/L/S Spine Min 4 Views IMPRESSION: Mild spondylosis. No acute fracture or other significant bony pathology Electronically Signed: Dain Valencia MD at 15:43 EDT , Service support ,
[2021-05-31 18:30] VITALS: BP 119/50; PULSE 77
[2021-05-31] MEDS: Rivaroxaban 20 MG Tablet PO (18:41)
[2021-05-31] MEDS: Gabapentin 100 MG Capsule PO (18:42)
[2021-05-31 18:43] VITALS: PULSE 77
[2021-05-31 20:53] VITALS: BP 111/53; PULSE 72
[2021-05-31] MEDS: Atorvastatin Calcium 40 MG Tablet PO (20:57)
[2021-05-31] MEDS: Lidocaine 5% Patch 1 PATCH TOPICAL (20:59)
[2021-06-01 05:20] VITALS: BP 110/61; PULSE 80
[2021-06-01 05:22] VITALS: BP 110/61; PULSE 80
[2021-06-01] MEDS: Acetaminophen 500 MG Tablet 1000 MG PO ×3 (05:22→19:58)
[2021-06-01] MEDS: levETIRAcetam 500 MG Tablet PO ×2 (05:22→17:44)
[2021-06-01] MEDS: Furosemide 20 MG Tablet PO (05:22)
[2021-06-01] MEDS: Metoprolol Tartrate 25 MG Tablet PO ×2 (05:22→17:45)
[2021-06-01] MEDS: Polyethylene Glycol 3350 17 GM PACKET PO (05:22)
[2021-06-01] MEDS: dilTIAZem CD 240 MG Capsule PO (05:22)
[2021-06-01] MEDS: Senna/Docusate Sodium 1 Tablet 2 TABLET PO ×2 (05:22→17:45)
[2021-06-01] MEDS: Sodium Chloride 0.65% 1 SPRAY SPRAY.BTL NASAL ×2 (05:24→17:44)
[2021-06-01] MEDS: Nystatin Powder 15gm Bottle 1 APPLIC TOPICAL ×2 (05:25→19:58)
[2021-06-01] MEDS: Menthol/Lanolin/Calamine/Znox 113 GM Tube 1 APPLIC TOPICAL ×2 (05:25→17:47)
[2021-06-01] MEDS: Gabapentin 100 MG Capsule PO ×3 (08:03→17:44)
[2021-06-01] MEDS: Multivitamins,Ther W-Minerals Tablet 1 TABLET PO (08:03)
[2021-06-01] MEDS: Iron Polysaccharide Complex 150 MG CAPSULE PO (08:04)
[2021-06-01] MEDS: traMADol 50 MG Tablet PO (13:23)
[2021-06-01 13:41] VITALS: BP 105/52; PULSE 77; RESP 16; TEMP 36.2; O2SAT 98
--- NOTE | 2021-06-01 14:29 | NURSING ---
[employer] TICKET CHECKER TO CALL OFFICE ON 06/02 TO [facility] APPOINTMENT ON 06/08 AND SET UP TRANSPORT IF NECESSARY.
[2021-06-01] MEDS: Rivaroxaban 20 MG Tablet PO (17:44)
[2021-06-01 17:45] VITALS: BP 128/62; PULSE 82
[2021-06-01 17:48] VITALS: BP 128/62; PULSE 82
[2021-06-01] MEDS: Atorvastatin Calcium 40 MG Tablet PO (19:58)
[2021-06-01] MEDS: Lidocaine 5% Patch 1 PATCH TOPICAL (19:58)
[2021-06-02] MEDS: traMADol 50 MG Tablet PO ×3 (01:37→21:59)
[2021-06-02 05:12] VITALS: BP 122/64; PULSE 77; RESP 16; TEMP 35.8; O2SAT 98
[2021-06-02] MEDS: Senna/Docusate Sodium 1 Tablet 2 TABLET PO ×2 (05:14→17:31)
[2021-06-02] MEDS: Acetaminophen 500 MG Tablet 1000 MG PO ×3 (05:14→21:57)
[2021-06-02] MEDS: Polyethylene Glycol 3350 17 GM PACKET PO (05:14)
[2021-06-02] MEDS: levETIRAcetam 500 MG Tablet PO ×2 (05:14→17:31)
[2021-06-02] MEDS: Furosemide 20 MG Tablet PO (05:15)
[2021-06-02] MEDS: dilTIAZem CD 240 MG Capsule PO (05:15)
[2021-06-02 05:16] VITALS: BP 122/64; PULSE 77
[2021-06-02] MEDS: Metoprolol Tartrate 25 MG Tablet PO ×2 (05:16→17:31)
[2021-06-02] MEDS: Menthol/Lanolin/Calamine/Znox 113 GM Tube 1 APPLIC TOPICAL ×2 (05:18→17:33)
[2021-06-02] MEDS: Nystatin Powder 15gm Bottle 1 APPLIC TOPICAL ×2 (05:18→17:33)
[2021-06-02 06:44] VITALS: O2SAT 100
[2021-06-02] MEDS: Iron Polysaccharide Complex 150 MG CAPSULE PO (08:13)
[2021-06-02] MEDS: Multivitamins,Ther W-Minerals Tablet 1 TABLET PO (08:13)
[2021-06-02] MEDS: Gabapentin 100 MG Capsule PO ×3 (08:16→17:30)
[2021-06-02 13:40] VITALS: BP 104/53; PULSE 68; RESP 14; TEMP 36.3; O2SAT 96
[2021-06-02] MEDS: Rivaroxaban 20 MG Tablet PO (17:30)
[2021-06-02 17:31] VITALS: PULSE 68
[2021-06-02] MEDS: Sodium Chloride 0.65% 1 SPRAY SPRAY.BTL NASAL (17:32)
[2021-06-02] MEDS: Lidocaine 5% Patch 1 PATCH TOPICAL (21:56)
[2021-06-02] MEDS: Atorvastatin Calcium 40 MG Tablet PO (21:57)
[2021-06-03] MEDS: Senna/Docusate Sodium 1 Tablet 2 TABLET PO ×2 (04:09→17:58)
[2021-06-03] MEDS: Sodium Chloride 0.65% 1 SPRAY SPRAY.BTL NASAL ×2 (04:09→17:57)
[2021-06-03] MEDS: Polyethylene Glycol 3350 17 GM PACKET PO (04:09)
[2021-06-03] MEDS: dilTIAZem CD 240 MG Capsule PO (04:10)
[2021-06-03] MEDS: Furosemide 20 MG Tablet PO (04:10)
[2021-06-03] MEDS: Nystatin Powder 15gm Bottle 1 APPLIC TOPICAL ×2 (04:10→17:56)
[2021-06-03] MEDS: levETIRAcetam 500 MG Tablet PO ×2 (04:10→17:53)
[2021-06-03] MEDS: Menthol/Lanolin/Calamine/Znox 113 GM Tube 1 APPLIC TOPICAL ×2 (04:10→17:56)
[2021-06-03 04:11] VITALS: BP 129/70; PULSE 91
[2021-06-03] MEDS: Metoprolol Tartrate 25 MG Tablet PO ×2 (04:11→17:58)
[2021-06-03] MEDS: Acetaminophen 500 MG Tablet 1000 MG PO ×3 (04:11→20:22)
[2021-06-03] MEDS: traMADol 50 MG Tablet PO (04:16)
[2021-06-03 06:40] VITALS: O2SAT 91
[2021-06-03] MEDS: Multivitamins,Ther W-Minerals Tablet 1 TABLET PO (08:47)
[2021-06-03] MEDS: Iron Polysaccharide Complex 150 MG CAPSULE PO (08:47)
[2021-06-03] MEDS: Gabapentin 100 MG Capsule PO ×3 (08:47→17:53)
[2021-06-03 16:38] VITALS: BP 116/51; PULSE 87; RESP 15; TEMP 36.1; O2SAT 95
[2021-06-03] MEDS: Rivaroxaban 20 MG Tablet PO (17:54)
[2021-06-03 17:58] VITALS: BP 129/60; PULSE 90
[2021-06-03 20:04] VITALS: PULSE 88; RESP 16; O2SAT 94
[2021-06-03 20:21] VITALS: BP 118/53; PULSE 87; RESP 16; TEMP 36.2; O2SAT 94
[2021-06-03] MEDS: Atorvastatin Calcium 40 MG Tablet PO (20:22)
[2021-06-03] MEDS: Lidocaine 5% Patch 1 PATCH TOPICAL (20:22)
[2021-06-03] MEDS: morphine (oral solution) 10MG/0.5ML Syringe 10 MG PO (20:32)
[2021-06-04] MEDS: morphine (oral solution) 10MG/0.5ML Syringe 10 MG PO (03:01)
[2021-06-04 05:44] LABS: Absolute Lymphocyte Count 1.22 X10^3/uL (0.83-4.51); Absolute Neutrophil Count 2.1 X10^3/uL (2.0-7.7); Basophil# 0.01 X10^3/uL; Basophil% 0.3 % (0-1); Eosinophil# 0.14 X10^3/uL; Eosinophils% 3.5 % (0-5); Hematocrit 32.5 % (37-47); Lymphocyte # 1.22 X10^3/ul (0.83-4.51); Lymphocyte % 30.9 % (19-41); Mean Corp Hgb Conc 30.8 g/dL (32-36); Mean Corpuscular Hgb 36.9 pg (27.0-32.0); Mean Corpuscular Volume 119.9 fL (81-99); Mean Platelet Vol. 9.9 fl (6.2-12.0); Monocyte# 0.52 X10^3/uL; Monocyte% 13.2 % (0-10); NRBC Flagged by Analyzer 0 % (0-5); Neutrophil # 2.05 X10^3/uL (2.7-7.7); Neutrophil % 51.8 % (47-70); POSITIVE MORPHOLOGY YES; Platelet Count 217 K/mm3 (150-450); RBC Distribution Width CV 18.1 % (11.6-14.6); RBC Distribution Width SD 77.2 fl (35.1-43.9); Red Blood Count 2.71 M/mm3 (4.2-5.4)
[2021-06-04] MEDS: Sodium Chloride 0.65% 1 SPRAY SPRAY.BTL NASAL ×2 (05:48→17:47)
[2021-06-04] MEDS: Polyethylene Glycol 3350 17 GM PACKET PO (05:49)
[2021-06-04] MEDS: traMADol 50 MG Tablet PO ×2 (05:49→21:50)
[2021-06-04] MEDS: Acetaminophen 500 MG Tablet 1000 MG PO ×3 (05:49→21:45)
[2021-06-04] MEDS: Furosemide 20 MG Tablet PO (05:49)
[2021-06-04] MEDS: dilTIAZem CD 240 MG Capsule PO (05:49)
[2021-06-04] MEDS: levETIRAcetam 500 MG Tablet PO ×2 (05:49→17:45)
[2021-06-04 05:50] VITALS: BP 120/70; PULSE 81
[2021-06-04] MEDS: Metoprolol Tartrate 25 MG Tablet PO ×2 (05:50→17:46)
[2021-06-04] MEDS: Senna/Docusate Sodium 1 Tablet 2 TABLET PO ×2 (05:50→17:45)
[2021-06-04] MEDS: Nystatin Powder 15gm Bottle 1 APPLIC TOPICAL ×2 (05:52→17:45)
[2021-06-04] MEDS: Menthol/Lanolin/Calamine/Znox 113 GM Tube 1 APPLIC TOPICAL ×2 (05:52→17:45)
[2021-06-04 06:07] LABS: Differential Indicated SCAN CRITERIA MET
[2021-06-04 06:23] LABS: Anisocytosis 2+
[2021-06-04 06:26] LABS: Anion Gap 2 (5-15); BUN 21 mg/dL (7-18); BUN/Creat Ratio 35.6 RATIO (10-20); Calcium,Total 8.2 mg/dL (8.5-10.1); Chloride 108 mmol/L (98-107); Creatinine, Serum 0.59 mg/dL (0.55-1.02); EST Glomerular Filtration Rate 103 mL/min (>60); Est Glom Filt Rate - Afr Amer 124 mL/min (>60); Estimated Creatinine Clearance 31.94 ml/min; Glucose 105 mg/dL (74-106); Potassium 3.7 mmol/L (3.5-5.1); Sodium Level 143 mmol/L (136-145)
[2021-06-04 06:49] VITALS: O2SAT 88
[2021-06-04] MEDS: Iron Polysaccharide Complex 150 MG CAPSULE PO (08:50)
[2021-06-04] MEDS: Gabapentin 100 MG Capsule PO ×3 (08:50→17:44)
[2021-06-04] MEDS: Multivitamins,Ther W-Minerals Tablet 1 TABLET PO (08:50)
[2021-06-04 09:00] VITALS: PULSE 71; RESP 18; O2SAT 91
[2021-06-04 14:13] VITALS: BP 125/61; PULSE 79; RESP 18; TEMP 36.3; O2SAT 91
[2021-06-04] MEDS: Rivaroxaban 20 MG Tablet PO (17:44)
[2021-06-04 17:46] VITALS: BP 125/61; PULSE 79
[2021-06-04] MEDS: Atorvastatin Calcium 40 MG Tablet PO (21:45)
[2021-06-04] MEDS: Lidocaine 5% Patch 1 PATCH TOPICAL (21:45)
[2021-06-04] MEDS: LORazepam 0.5 MG Tablet 0.25 MG PO (21:52)
[2021-06-05] VITALS (7 sets, daily range): BP systolic 114–145; BP diastolic 66–94; PULSE 67–114; RESP 16–18; TEMP 36–36.6; O2SAT 90–96
[2021-06-05] MEDS: morphine (oral solution) 10MG/0.5ML Syringe 10 MG PO (02:03)
[2021-06-05] MEDS: Polyethylene Glycol 3350 17 GM PACKET PO (05:17)
[2021-06-05] MEDS: Acetaminophen 500 MG Tablet 1000 MG PO ×3 (05:17→19:50)
[2021-06-05] MEDS: Senna/Docusate Sodium 1 Tablet 2 TABLET PO ×2 (05:17→17:29)
[2021-06-05] MEDS: Nystatin Powder 15gm Bottle 1 APPLIC TOPICAL ×2 (05:18→17:29)
[2021-06-05] MEDS: Menthol/Lanolin/Calamine/Znox 113 GM Tube 1 APPLIC TOPICAL ×2 (05:18→17:27)
[2021-06-05] MEDS: Metoprolol Tartrate 25 MG Tablet PO ×2 (05:18→17:27)
[2021-06-05] MEDS: levETIRAcetam 500 MG Tablet PO ×2 (05:18→17:29)
[2021-06-05] MEDS: Furosemide 20 MG Tablet PO (05:18)
[2021-06-05] MEDS: dilTIAZem CD 240 MG Capsule PO (05:18)
[2021-06-05] MEDS: traMADol 50 MG Tablet PO ×2 (05:22→17:36)
[2021-06-05] MEDS: Iron Polysaccharide Complex 150 MG CAPSULE PO (08:24)
[2021-06-05] MEDS: Multivitamins,Ther W-Minerals Tablet 1 TABLET PO (08:24)
[2021-06-05] MEDS: Gabapentin 100 MG Capsule PO ×3 (08:24→17:31)
[2021-06-05] MEDS: Sodium Chloride 0.65% 1 SPRAY SPRAY.BTL NASAL (17:21)
[2021-06-05] MEDS: Rivaroxaban 20 MG Tablet PO (17:31)
[2021-06-05] MEDS: Atorvastatin Calcium 40 MG Tablet PO (19:50)
[2021-06-05] MEDS: Lidocaine 5% Patch 1 PATCH TOPICAL (19:50)
[2021-06-06 04:12] VITALS: BP 143/74; PULSE 95
[2021-06-06] MEDS: traMADol 50 MG Tablet PO ×2 (04:13→21:49)
[2021-06-06] MEDS: LORazepam 0.5 MG Tablet 0.25 MG PO ×2 (04:13→21:49)
[2021-06-06] MEDS: Sodium Chloride 0.65% 1 SPRAY SPRAY.BTL NASAL ×2 (04:14→17:58)
[2021-06-06 04:15] VITALS: PULSE 95
[2021-06-06] MEDS: dilTIAZem CD 240 MG Capsule PO (04:15)
[2021-06-06] MEDS: Metoprolol Tartrate 25 MG Tablet PO ×2 (04:15→17:57)
[2021-06-06] MEDS: Acetaminophen 500 MG Tablet 1000 MG PO ×3 (04:15→21:50)
[2021-06-06] MEDS: Polyethylene Glycol 3350 17 GM PACKET PO (04:15)
[2021-06-06] MEDS: levETIRAcetam 500 MG Tablet PO ×2 (04:15→17:56)
[2021-06-06] MEDS: Senna/Docusate Sodium 1 Tablet 2 TABLET PO ×2 (04:15→17:58)
[2021-06-06] MEDS: Furosemide 20 MG Tablet PO (04:16)
[2021-06-06] MEDS: Nystatin Powder 15gm Bottle 1 APPLIC TOPICAL ×2 (04:17→17:57)
[2021-06-06] MEDS: Menthol/Lanolin/Calamine/Znox 113 GM Tube 1 APPLIC TOPICAL ×2 (04:17→18:01)
[2021-06-06 08:20] VITALS: O2SAT 94
[2021-06-06] MEDS: Multivitamins,Ther W-Minerals Tablet 1 TABLET PO (08:52)
[2021-06-06] MEDS: Gabapentin 100 MG Capsule PO ×3 (08:52→17:56)
[2021-06-06] MEDS: Iron Polysaccharide Complex 150 MG CAPSULE PO (08:52)
[2021-06-06 09:10] VITALS: PULSE 83; RESP 18; O2SAT 92
[2021-06-06 16:30] VITALS: BP 129/62; PULSE 74; RESP 16; TEMP 36.7; O2SAT 96
[2021-06-06] MEDS: Rivaroxaban 20 MG Tablet PO (17:56)
[2021-06-06 17:57] VITALS: BP 129/62; PULSE 74
[2021-06-06] MEDS: Lidocaine 5% Patch 1 PATCH TOPICAL (21:35)
[2021-06-06] MEDS: Atorvastatin Calcium 40 MG Tablet PO (21:50)
[2021-06-06] MEDS: morphine (oral solution) 10MG/0.5ML Syringe 10 MG PO (23:06)
[2021-06-07] MEDS: Polyethylene Glycol 3350 17 GM PACKET PO (05:22)
[2021-06-07 05:23] VITALS: BP 137/68; PULSE 82
[2021-06-07] MEDS: levETIRAcetam 500 MG Tablet PO ×2 (05:23→17:16)
[2021-06-07] MEDS: Metoprolol Tartrate 25 MG Tablet PO ×2 (05:23→17:17)
[2021-06-07] MEDS: Furosemide 20 MG Tablet PO (05:23)
[2021-06-07] MEDS: Acetaminophen 500 MG Tablet 1000 MG PO ×3 (05:23→21:45)
[2021-06-07] MEDS: Senna/Docusate Sodium 1 Tablet 2 TABLET PO ×2 (05:23→17:16)
[2021-06-07] MEDS: dilTIAZem CD 240 MG Capsule PO (05:23)
[2021-06-07] MEDS: Menthol/Lanolin/Calamine/Znox 113 GM Tube 1 APPLIC TOPICAL ×2 (05:24→17:15)
[2021-06-07] MEDS: Nystatin Powder 15gm Bottle 1 APPLIC TOPICAL ×2 (05:24→19:00)
[2021-06-07] MEDS: Sodium Chloride 0.65% 1 SPRAY SPRAY.BTL NASAL ×2 (05:24→17:14)
[2021-06-07] MEDS: traMADol 50 MG Tablet PO ×2 (05:25→21:45)
[2021-06-07] MEDS: Gabapentin 100 MG Capsule PO ×3 (08:36→17:16)
[2021-06-07] MEDS: Multivitamins,Ther W-Minerals Tablet 1 TABLET PO (08:36)
[2021-06-07] MEDS: Iron Polysaccharide Complex 150 MG CAPSULE PO (08:36)
[2021-06-07 12:50] VITALS: O2SAT 94
[2021-06-07 13:58] VITALS: BP 115/54; PULSE 73; RESP 16; TEMP 36.3; O2SAT 90
[2021-06-07] MEDS: Rivaroxaban 20 MG Tablet PO (17:16)
[2021-06-07 17:17] VITALS: BP 115/54; PULSE 73
[2021-06-07] MEDS: Atorvastatin Calcium 40 MG Tablet PO (21:45)
[2021-06-07] MEDS: Lidocaine 5% Patch 1 PATCH TOPICAL (21:46)
[2021-06-07] MEDS: morphine (oral solution) 10MG/0.5ML Syringe 10 MG PO (23:44)
[2021-06-08 04:36] VITALS: BP 145/90; PULSE 105
[2021-06-08] MEDS: Acetaminophen 500 MG Tablet 1000 MG PO ×3 (04:36→20:02)
[2021-06-08] MEDS: Furosemide 20 MG Tablet PO (04:36)
[2021-06-08] MEDS: Senna/Docusate Sodium 1 Tablet 2 TABLET PO ×2 (04:36→17:20)
[2021-06-08] MEDS: Polyethylene Glycol 3350 17 GM PACKET PO (04:36)
[2021-06-08] MEDS: Metoprolol Tartrate 25 MG Tablet PO ×2 (04:36→17:26)
[2021-06-08] MEDS: levETIRAcetam 500 MG Tablet PO ×2 (04:36→17:19)
[2021-06-08] MEDS: dilTIAZem CD 240 MG Capsule PO (04:36)
[2021-06-08] MEDS: Nystatin Powder 15gm Bottle 1 APPLIC TOPICAL ×2 (04:37→17:28)
[2021-06-08] MEDS: Menthol/Lanolin/Calamine/Znox 113 GM Tube 1 APPLIC TOPICAL ×2 (04:37→17:28)
[2021-06-08] MEDS: traMADol 50 MG Tablet PO ×2 (04:37→20:02)
[2021-06-08] MEDS: Gabapentin 100 MG Capsule PO ×3 (08:14→17:19)
[2021-06-08] MEDS: Multivitamins,Ther W-Minerals Tablet 1 TABLET PO (08:14)
[2021-06-08] MEDS: Iron Polysaccharide Complex 150 MG CAPSULE PO (08:15)
--- NOTE | 2021-06-08 12:53 | NURSING ---
Pt went to Dr. Lee appointment today, F/u in three weeks on 06/29/21 at 1015. WBAT to RLE
[2021-06-08 16:00] VITALS: BP 107/51; PULSE 83; RESP 16; TEMP 36.4; O2SAT 97
[2021-06-08] MEDS: Rivaroxaban 20 MG Tablet PO (17:19)
[2021-06-08 17:26] VITALS: BP 123/64; PULSE 86
[2021-06-08] MEDS: Sodium Chloride 0.65% 1 SPRAY SPRAY.BTL NASAL (17:26)
--- NOTE | 2021-06-08 19:07 | PN.TCU_ITS ---
Subjective Subjective Resident seen, examined for regulatory visit. She is sitting in chair in room, she has no new problems, concerns, issues, complaints. She is progressing in therapy. Objective Data Objective Data Vital Signs: Vital Signs Temp Pulse Resp BP Pulse Ox 97.6 F L 86 16 123/64 H 97 06/08/21 16:00 06/08/21 17:26 06/08/21 16:00 06/08/21 17:26 06/08/21 16:00 Oxygen Flow Rate (L/min) 2 Oxygen Delivery Method Room Air Weight: 75.296 kg Body Mass Index (BMI) 30.2 Intake & Output: Intake and Output for Last 24 Hours 06/06/21 06/07/21 06/08/21 23:59 23:59 23:59 Intake Total 600 / 600 960 / 960 600 / 600 Balance 600 / 600 960 / 960 600 / 600 Lab / Micro Data Result Diagrams: 06/04/21 05:07 06/04/21 05:07 Micro: Microbiology 05/21/21 18:36 Wound - Hip Gram Stain - Final 05/21/21 18:36 Wound - Hip Wound Culture - Final Enterococcus faecalis Physical Exam Const alert and oriented x3 General Appearance: cooperative HEENT normocephalic Eyes PERRL and EOMs intact bilaterally Neck supple, no JVD and no carotid bruits Resp normal respiratory effort, normal air movement and clear to auscultation bilaterally Cardio regular rate and regular rhythm GI normal to inspection, nondistended, normoactive bowel sounds, non-tender and non-distended Extremity normal capillary refill General Extremity: Negative for edema Skin no rashes or lesions noted General Skin Exam: no breakdown Psych affect normal Appearance: appropriate Assessment & Plan Assessment/Plan (1) History of total right hip arthroplasty: (2) Closed intertrochanteric fracture of right hip: QUALIFIERS: Encounter type: initial encounter Fracture alignment: nondisplaced Qualified Code(s): S72.144A - Nondisplaced intertrochanteric fra cture of right femur, initial encounter for closed fracture (3) Hypertension: (4) Anxiety: (5) Hyperlipidemia: (6) Debility: (7) Stroke: (8) Atrial fibrillation with rapid ventricular response: (9) Opioid dependence: (10) Seizure disorder: (11) Vitamin D deficiency: PLAN: 85 year old female with below past medical history hospitalized for right hip fracture, underwent right femur intramedullary nail fixation 05/12/[address] Lee, postoperative course complicated by hypotension, admitted to TCU with debility, here for rehabilitation, strengthening, prior to discharge home with family. * Debility - PT/OT. * Pain - Tylenol 1000mg Q8H, Tramadol 50mg Q6H PRN, Morphine 10mg Q4H PRN, Lidoderm 5% patch 1 patch QHS. * Bowel - Miralax 17gm daily, Senna/colace 2 tablets twice daily, Dulcolax 10mg daily PRN. * Adult immunization - Administer prevnar 13, pneumovax 23, fluzone, covid 19 vaccine as appropriate. * DVT prophylaxis - not necessary, already on Xarelto. * Hyperlipidemia - Atorvastatin 40mg QHS. * Atrial fibrillation - Metoprolol 25mg twice daily, Diltiazem 240mg daily, Xarelto 20mg daily. * Nutrition - MVI daily, Ensure Enlive 120ml 4x/day. * Edema - Furosemide 20mg daily. * Seizure disorder - Keppra 500mg twice daily. * Hypertension - Metoprolol 25mg twice daily, Diltiazem 240mg daily. * Tinea corporis - Nystatin powder topical twice daily. * Neuropathic pain - Gabapentin 100mg TIDCM. * Rash - Hydrocortisone cream 2.5% topical bid prn. * Iron deficiency anemia - Ferrex 150mg daily. * Anxiety - Lorazepam 0.25mg Q8H PRN. * Skin irritation - Calmoseptine topical bid. * Dry nares - Sodium chloride 1 spray nasal bid. Capacity Capacity Assessment Tool Can the patient make a choice & communicate that choice?: Yes Can the patient understand benefits, risks and alternatives?: Yes Can the patient make a logical, rational choice?: Yes Is the choice the patient makes consistent w/ their values?: Yes Is there an impending, emergent risk to the patient?: No Does the patient have an Advance Directive?: No Is there a Surrogate Available?: Yes i.e. HCPOA: Yes i.e. close relative (spouse, child, parent, sibling)?: Yes
[2021-06-08] MEDS: Lidocaine 5% Patch 1 PATCH TOPICAL (20:02)
[2021-06-08] MEDS: Atorvastatin Calcium 40 MG Tablet PO (20:02)
[2021-06-09] MEDS: Polyethylene Glycol 3350 17 GM PACKET PO (06:24)
[2021-06-09 06:25] VITALS: BP 148/66; PULSE 90
[2021-06-09] MEDS: dilTIAZem CD 240 MG Capsule PO (06:25)
[2021-06-09] MEDS: Senna/Docusate Sodium 1 Tablet 2 TABLET PO ×2 (06:25→17:28)
[2021-06-09] MEDS: Metoprolol Tartrate 25 MG Tablet PO ×2 (06:25→17:26)
[2021-06-09] MEDS: Acetaminophen 500 MG Tablet 1000 MG PO ×3 (06:25→21:42)
[2021-06-09] MEDS: levETIRAcetam 500 MG Tablet PO ×2 (06:25→17:25)
[2021-06-09] MEDS: Furosemide 20 MG Tablet PO (06:25)
[2021-06-09] MEDS: Sodium Chloride 0.65% 1 SPRAY SPRAY.BTL NASAL ×2 (06:27→17:28)
[2021-06-09] MEDS: Nystatin Powder 15gm Bottle 1 APPLIC TOPICAL ×2 (06:27→17:31)
[2021-06-09] MEDS: Menthol/Lanolin/Calamine/Znox 113 GM Tube 1 APPLIC TOPICAL ×2 (06:27→17:31)
[2021-06-09 07:31] VITALS: O2SAT 97
[2021-06-09] MEDS: Gabapentin 100 MG Capsule PO ×3 (08:37→17:25)
[2021-06-09] MEDS: Iron Polysaccharide Complex 150 MG CAPSULE PO (08:37)
[2021-06-09] MEDS: Multivitamins,Ther W-Minerals Tablet 1 TABLET PO (08:37)
--- NOTE | 2021-06-09 10:39 | EKG12_ITS ---
Test Reason : CP Blood Pressure : / mmHG Vent. Rate : 085 BPM Atrial Rate : 170 BPM P-R Int : 000 ms QRS Dur : 086 ms QT Int : 380 ms P-R-T Axes : 000 061 010 degrees QTc Int : 452 ms Atrial fibrillation Abnormal ECG When compared with ECG of 10-MAY-2021 23:55, T wave inversion less evident in Inferior leads Nonspecific T wave abnormality, improved in Anterior leads Confirmed by LORETA ZAPIEN, DAVIS ([id number]), editor book HARRIET CALDERON ([id number]) on 06/11/2021 2:12:15 PM Referred By: MADHU Confirmed By:DAVIS KAN MD
--- NOTE | 2021-06-09 10:40 | NURSING ---
Notified Dr. Peterson of patient reporting chest pain in the center of her chest and having double vision. Received order for EKG. Order repeated back.
--- NOTE | 2021-06-09 10:46 | NURSING ---
Addendum entered by Vira Cagle 06/09/21 11:50: EKG given showing AFIB, pt does have hx of AFIB, Charge nurse updated. Pt states she is feeling better, currently sitting up in chair eating lunch Original Note: Therapy called this nurse to room stating pt is complaining of chest pain, Pt reports pain as pressure and reports double vision, HR is fluctuaing between 110 and 120, HR irregular, O2 90% on RA oxygen via nasal cannula applied at 2L for comfort, SPO2 98% 2 liters. BP 152/100. Dr. Peterson called and updated. N.O. EKG
[2021-06-09 10:50] VITALS: BP 152/100; PULSE 96; RESP 98
[2021-06-09 11:53] VITALS: BP 140/82; PULSE 75; O2SAT 98
--- NOTE | 2021-06-09 12:12 | CASEMGMT ---
Social Work Therapy inquiring if patient son if able to assist with toileting/dressing for patient. Telephone call to patient sonKumar. Kumar reports to be able to assist with toileting and dressing and plan is for patient to return to home. This social services also speaking with patient in room. Patient agreeable with plan to return to home to living with sonKumar. No discharge date set. Will continue to follow. Therapy updated on above. Zachary Burnett MSW, MERCEDEZ
[2021-06-09 17:26] VITALS: PULSE 97
[2021-06-09] MEDS: Rivaroxaban 20 MG Tablet PO (17:27)
[2021-06-09] MEDS: Lidocaine 5% Patch 1 PATCH TOPICAL (21:41)
[2021-06-09] MEDS: Atorvastatin Calcium 40 MG Tablet PO (21:43)
[2021-06-09] MEDS: traMADol 50 MG Tablet PO (21:46)
[2021-06-09 22:00] VITALS: O2SAT 96
[2021-06-10] MEDS: morphine (oral solution) 10MG/0.5ML Syringe 10 MG PO (00:06)
[2021-06-10] MEDS: levETIRAcetam 500 MG Tablet PO ×2 (05:15→17:43)
[2021-06-10] MEDS: Acetaminophen 500 MG Tablet 1000 MG PO ×3 (05:15→22:13)
[2021-06-10] MEDS: dilTIAZem CD 240 MG Capsule PO (05:15)
[2021-06-10] MEDS: traMADol 50 MG Tablet PO ×2 (05:15→22:16)
[2021-06-10] MEDS: Senna/Docusate Sodium 1 Tablet 2 TABLET PO ×2 (05:15→17:40)
[2021-06-10] MEDS: Furosemide 20 MG Tablet PO (05:15)
[2021-06-10 05:16] VITALS: BP 141/91; PULSE 95
[2021-06-10] MEDS: Metoprolol Tartrate 25 MG Tablet PO (05:16)
[2021-06-10] MEDS: Menthol/Lanolin/Calamine/Znox 113 GM Tube 1 APPLIC TOPICAL ×2 (05:23→17:43)
[2021-06-10] MEDS: Sodium Chloride 0.65% 1 SPRAY SPRAY.BTL NASAL ×2 (05:23→17:39)
[2021-06-10] MEDS: Nystatin Powder 15gm Bottle 1 APPLIC TOPICAL ×2 (05:23→22:15)
[2021-06-10 07:28] VITALS: O2SAT 93
[2021-06-10] MEDS: Gabapentin 100 MG Capsule PO ×3 (08:18→17:43)
[2021-06-10] MEDS: Iron Polysaccharide Complex 150 MG CAPSULE PO (08:18)
[2021-06-10] MEDS: Multivitamins,Ther W-Minerals Tablet 1 TABLET PO (08:18)
[2021-06-10] MEDS: Furosemide 40 MG Tablet PO ×2 (08:20→13:30)
[2021-06-10 10:50] VITALS: PULSE 71; RESP 18; O2SAT 91
--- NOTE | 2021-06-10 12:07 | NURSING ---
PT BRINGING UP THICK CLEAR SPUTUM. RN AWARE.
[2021-06-10 15:00] VITALS: BP 107/50; PULSE 68; RESP 18; TEMP 36.1; O2SAT 96
[2021-06-10 17:41] VITALS: BP 107/50; PULSE 68
[2021-06-10] MEDS: Rivaroxaban 20 MG Tablet PO (17:42)
[2021-06-10] MEDS: Lidocaine 5% Patch 1 PATCH TOPICAL (22:13)
[2021-06-10] MEDS: Atorvastatin Calcium 40 MG Tablet PO (22:14)
[2021-06-11 05:10] VITALS: BP 128/69; PULSE 96
[2021-06-11] MEDS: dilTIAZem CD 240 MG Capsule PO (05:10)
[2021-06-11] MEDS: Metoprolol Tartrate 25 MG Tablet PO ×2 (05:10→17:23)
[2021-06-11] MEDS: levETIRAcetam 500 MG Tablet PO ×2 (05:10→17:23)
[2021-06-11] MEDS: Furosemide 40 MG Tablet PO ×2 (05:10→13:20)
[2021-06-11] MEDS: Senna/Docusate Sodium 1 Tablet 2 TABLET PO ×2 (05:10→17:23)
[2021-06-11] MEDS: Acetaminophen 500 MG Tablet 1000 MG PO ×3 (05:10→21:02)
[2021-06-11] MEDS: Sodium Chloride 0.65% 1 SPRAY SPRAY.BTL NASAL ×3 (05:11→17:24)
[2021-06-11] MEDS: Nystatin Powder 15gm Bottle 1 APPLIC TOPICAL ×2 (05:11→21:00)
[2021-06-11] MEDS: Menthol/Lanolin/Calamine/Znox 113 GM Tube 1 APPLIC TOPICAL ×2 (05:11→18:18)
[2021-06-11] MEDS: traMADol 50 MG Tablet PO ×2 (05:12→21:07)
[2021-06-11 06:32] LABS: Anion Gap 2 (5-15); BUN 19 mg/dL (7-18); BUN/Creat Ratio 27.5 RATIO (10-20); Calcium,Total 8.7 mg/dL (8.5-10.1); Chloride 106 mmol/L (98-107); Creatinine, Serum 0.69 mg/dL (0.55-1.02); EST Glomerular Filtration Rate 86 mL/min (>60); Est Glom Filt Rate - Afr Amer 104 mL/min (>60); Estimated Creatinine Clearance 31.94 ml/min; Glucose 126 mg/dL (74-106); Potassium 3.5 mmol/L (3.5-5.1); Sodium Level 142 mmol/L (136-145)
[2021-06-11 06:37] LABS: Absolute Lymphocyte Count 1.16 X10^3/uL (0.83-4.51); Absolute Neutrophil Count 2.4 X10^3/uL (2.0-7.7); Basophil# 0.01 X10^3/uL; Basophil% 0.2 % (0-1); Eosinophil# 0.22 X10^3/uL; Eosinophils% 5.1 % (0-5); Hematocrit 35.1 % (37-47); Hemoglobin 10.7 g/dL (12.0-15.0); Lymphocyte # 1.16 X10^3/ul (0.83-4.51); Lymphocyte % 26.7 % (19-41); Mean Corp Hgb Conc 30.5 g/dL (32-36); Mean Corpuscular Hgb 36.8 pg (27.0-32.0); Mean Corpuscular Volume 120.6 fL (81-99); Monocyte# 0.51 X10^3/uL; Monocyte% 11.8 % (0-10); NRBC Flagged by Analyzer 0 % (0-5); Neutrophil # 2.43 X10^3/uL (2.7-7.7); POSITIVE MORPHOLOGY YES; Platelet Count 205 K/mm3 (150-450); RBC Distribution Width CV 16.9 % (11.6-14.6); RBC Distribution Width SD 75.7 fl (35.1-43.9); Red Blood Count 2.91 M/mm3 (4.2-5.4); White Blood Count 4.3 K/mm3 (4.4-11.0)
[2021-06-11 06:48] LABS: Differential Indicated SCAN CRITERIA MET
[2021-06-11 07:16] LABS: Differential Comment SCANNED
[2021-06-11 07:17] LABS: Anisocytosis 3+; Macrocytosis 3+
[2021-06-11] MEDS: Iron Polysaccharide Complex 150 MG CAPSULE PO (08:58)
[2021-06-11] MEDS: Gabapentin 100 MG Capsule PO ×3 (08:58→17:22)
[2021-06-11] MEDS: Multivitamins,Ther W-Minerals Tablet 1 TABLET PO (08:58)
[2021-06-11 14:05] VITALS: BP 114/58; PULSE 82; RESP 16; TEMP 36.3; O2SAT 97
[2021-06-11] MEDS: Rivaroxaban 20 MG Tablet PO (17:22)
[2021-06-11 17:23] VITALS: BP 114/58; PULSE 82
[2021-06-11 20:55] VITALS: PULSE 76; RESP 16; O2SAT 95
[2021-06-11] MEDS: Lidocaine 5% Patch 1 PATCH TOPICAL (21:00)
[2021-06-11] MEDS: Atorvastatin Calcium 40 MG Tablet PO (21:02)
[2021-06-12] MEDS: morphine (oral solution) 10MG/0.5ML Syringe 10 MG PO (03:08)
[2021-06-12] MEDS: Polyethylene Glycol 3350 17 GM PACKET PO (04:48)
[2021-06-12 04:49] VITALS: BP 131/74; PULSE 96
[2021-06-12] MEDS: Senna/Docusate Sodium 1 Tablet 2 TABLET PO ×2 (04:49→17:36)
[2021-06-12] MEDS: Acetaminophen 500 MG Tablet 1000 MG PO ×3 (04:49→20:13)
[2021-06-12] MEDS: Metoprolol Tartrate 25 MG Tablet PO ×2 (04:49→17:36)
[2021-06-12] MEDS: Sodium Chloride 0.65% 1 SPRAY SPRAY.BTL NASAL ×2 (04:50→17:36)
[2021-06-12] MEDS: levETIRAcetam 500 MG Tablet PO ×2 (04:50→17:35)
[2021-06-12] MEDS: dilTIAZem CD 240 MG Capsule PO (04:50)
[2021-06-12] MEDS: Furosemide 40 MG Tablet PO ×2 (04:50→13:41)
[2021-06-12] MEDS: Menthol/Lanolin/Calamine/Znox 113 GM Tube 1 APPLIC TOPICAL ×2 (04:54→17:38)
[2021-06-12] MEDS: Nystatin Powder 15gm Bottle 1 APPLIC TOPICAL ×2 (04:54→20:09)
[2021-06-12] MEDS: Iron Polysaccharide Complex 150 MG CAPSULE PO (08:33)
[2021-06-12] MEDS: Gabapentin 100 MG Capsule PO ×3 (08:33→17:35)
[2021-06-12] MEDS: Multivitamins,Ther W-Minerals Tablet 1 TABLET PO (08:34)
[2021-06-12] MEDS: traMADol 50 MG Tablet PO (08:35)
[2021-06-12 08:50] VITALS: PULSE 90; RESP 18; O2SAT 91
[2021-06-12 17:29] VITALS: BP 115/52; PULSE 75; RESP 16; TEMP 36.3; O2SAT 94
[2021-06-12] MEDS: Rivaroxaban 20 MG Tablet PO (17:35)
[2021-06-12 17:36] VITALS: BP 115/52; PULSE 75
[2021-06-12] MEDS: Lidocaine 5% Patch 1 PATCH TOPICAL (20:10)
[2021-06-12] MEDS: Atorvastatin Calcium 40 MG Tablet PO (20:13)
[2021-06-13 05:47] VITALS: BP 136/79; PULSE 83; RESP 20; TEMP 36.1; O2SAT 99
[2021-06-13] MEDS: Acetaminophen 500 MG Tablet 1000 MG PO ×3 (05:51→20:31)
[2021-06-13] MEDS: traMADol 50 MG Tablet PO ×2 (05:51→15:26)
[2021-06-13 05:53] VITALS: BP 136/79; PULSE 83
[2021-06-13] MEDS: Senna/Docusate Sodium 1 Tablet 2 TABLET PO ×2 (05:53→17:40)
[2021-06-13] MEDS: Metoprolol Tartrate 25 MG Tablet PO ×2 (05:53→17:42)
[2021-06-13] MEDS: Furosemide 40 MG Tablet PO (05:53)
[2021-06-13] MEDS: levETIRAcetam 500 MG Tablet PO ×2 (05:53→17:39)
[2021-06-13] MEDS: dilTIAZem CD 240 MG Capsule PO (05:54)
[2021-06-13] MEDS: Polyethylene Glycol 3350 17 GM PACKET PO (05:54)
[2021-06-13] MEDS: Nystatin Powder 15gm Bottle 1 APPLIC TOPICAL ×2 (05:57→17:44)
[2021-06-13] MEDS: Menthol/Lanolin/Calamine/Znox 113 GM Tube 1 APPLIC TOPICAL ×2 (05:58→17:43)
[2021-06-13] MEDS: Gabapentin 100 MG Capsule PO ×3 (08:41→17:38)
[2021-06-13] MEDS: Iron Polysaccharide Complex 150 MG CAPSULE PO (08:41)
[2021-06-13] MEDS: Multivitamins,Ther W-Minerals Tablet 1 TABLET PO (08:42)
[2021-06-13 16:00] VITALS: BP 119/64; PULSE 85; RESP 18; TEMP 36.1; O2SAT 95
[2021-06-13] MEDS: Rivaroxaban 20 MG Tablet PO (17:41)
[2021-06-13 17:42] VITALS: PULSE 85
[2021-06-13] MEDS: Lidocaine 5% Patch 1 PATCH TOPICAL (20:31)
[2021-06-13] MEDS: Atorvastatin Calcium 40 MG Tablet PO (20:31)
[2021-06-13] MEDS: morphine (oral solution) 10MG/0.5ML Syringe 10 MG PO (20:37)
[2021-06-13] MEDS: Sodium Chloride 0.65% 1 SPRAY SPRAY.BTL NASAL (20:39)
[2021-06-14 04:30] VITALS: BP 137/76; PULSE 88; RESP 16; TEMP 36.3; O2SAT 94
[2021-06-14] MEDS: Sodium Chloride 0.65% 1 SPRAY SPRAY.BTL NASAL ×2 (04:31→17:44)
[2021-06-14 04:32] VITALS: BP 137/76; PULSE 88
[2021-06-14] MEDS: Acetaminophen 500 MG Tablet 1000 MG PO ×3 (04:32→21:09)
[2021-06-14] MEDS: Metoprolol Tartrate 25 MG Tablet PO ×2 (04:32→17:43)
[2021-06-14] MEDS: Polyethylene Glycol 3350 17 GM PACKET PO (04:32)
[2021-06-14] MEDS: dilTIAZem CD 240 MG Capsule PO (04:32)
[2021-06-14] MEDS: Senna/Docusate Sodium 1 Tablet 2 TABLET PO ×2 (04:32→17:44)
[2021-06-14] MEDS: levETIRAcetam 500 MG Tablet PO ×2 (04:32→17:42)
[2021-06-14] MEDS: Furosemide 20 MG Tablet PO (04:32)
[2021-06-14] MEDS: Nystatin Powder 15gm Bottle 1 APPLIC TOPICAL ×2 (04:42→17:43)
[2021-06-14] MEDS: Menthol/Lanolin/Calamine/Znox 113 GM Tube 1 APPLIC TOPICAL ×2 (04:42→17:43)
[2021-06-14 04:48] VITALS: PULSE 88; RESP 16; O2SAT 94
[2021-06-14] MEDS: Multivitamins,Ther W-Minerals Tablet 1 TABLET PO (08:29)
[2021-06-14] MEDS: Iron Polysaccharide Complex 150 MG CAPSULE PO (08:29)
[2021-06-14] MEDS: Gabapentin 100 MG Capsule PO ×3 (08:29→17:42)
[2021-06-14] MEDS: LORazepam 0.5 MG Tablet 0.25 MG PO (13:50)
[2021-06-14 15:30] VITALS: BP 121/76; PULSE 86; RESP 20; TEMP 36.6; O2SAT 91
[2021-06-14] MEDS: Rivaroxaban 20 MG Tablet PO (17:41)
[2021-06-14 17:43] VITALS: PULSE 86
[2021-06-14] MEDS: Atorvastatin Calcium 40 MG Tablet PO (21:09)
[2021-06-14] MEDS: Lidocaine 5% Patch 1 PATCH TOPICAL (21:11)
[2021-06-15 05:17] VITALS: BP 131/66; PULSE 112
[2021-06-15] MEDS: levETIRAcetam 500 MG Tablet PO ×2 (05:17→17:48)
[2021-06-15] MEDS: Sodium Chloride 0.65% 1 SPRAY SPRAY.BTL NASAL ×2 (05:17→17:49)
[2021-06-15] MEDS: Acetaminophen 500 MG Tablet 1000 MG PO ×3 (05:17→22:40)
[2021-06-15] MEDS: Senna/Docusate Sodium 1 Tablet 2 TABLET PO ×2 (05:17→17:49)
[2021-06-15] MEDS: Metoprolol Tartrate 25 MG Tablet PO ×2 (05:17→17:48)
[2021-06-15] MEDS: dilTIAZem CD 240 MG Capsule PO (05:17)
[2021-06-15] MEDS: Furosemide 20 MG Tablet PO (05:17)
[2021-06-15] MEDS: Polyethylene Glycol 3350 17 GM PACKET PO (05:18)
[2021-06-15] MEDS: morphine (oral solution) 10MG/0.5ML Syringe 10 MG PO (05:21)
[2021-06-15] MEDS: Menthol/Lanolin/Calamine/Znox 113 GM Tube 1 APPLIC TOPICAL ×2 (05:22→17:50)
[2021-06-15] MEDS: Nystatin Powder 15gm Bottle 1 APPLIC TOPICAL ×2 (05:22→22:40)
[2021-06-15] MEDS: Iron Polysaccharide Complex 150 MG CAPSULE PO (08:08)
[2021-06-15] MEDS: Gabapentin 100 MG Capsule PO ×3 (08:08→17:48)
[2021-06-15] MEDS: Multivitamins,Ther W-Minerals Tablet 1 TABLET PO (08:08)
[2021-06-15] MEDS: traMADol 50 MG Tablet PO (08:09)
[2021-06-15 10:45] VITALS: PULSE 76; RESP 18; O2SAT 90
[2021-06-15 10:50] VITALS: O2SAT 91
--- NOTE | 2021-06-15 16:05 | RAD_ITS ---
STUDY: X-RAY CHEST REASON FOR EXAM: Female, 85 years old. crackles bases, SOB TECHNIQUE: PA and lateral views of the chest. COMPARISON: 05/11/2021 FINDINGS: The lungs are clear and expanded. There is no demonstrated pleural abnormality. There is moderate cardiac enlargement. Normal mediastinum and sarah. Normal visualized pulmonary arteries. Normal visualized aortic arch and descending thoracic aorta. Normal visualized thoracic spine. Normal visualized ribs, clavicles, and shoulders. There is no demonstrated abnormality of the visualized soft tissue structures of the upper abdomen. RAD/Chest PA and Lateral IMPRESSION: No active disease. Electronically Signed: Braeden Treadwell MD at 16:22 EDT Tel , Service support ,
[2021-06-15 16:44] VITALS: BP 113/69; PULSE 87; RESP 17; TEMP 36.9; O2SAT 91
[2021-06-15] MEDS: Rivaroxaban 20 MG Tablet PO (17:47)
[2021-06-15 17:48] VITALS: BP 113/69; PULSE 87
[2021-06-15] MEDS: Lidocaine 5% Patch 1 PATCH TOPICAL (22:38)
[2021-06-15] MEDS: Atorvastatin Calcium 40 MG Tablet PO (22:40)
[2021-06-16] MEDS: Sodium Chloride 0.65% 1 SPRAY SPRAY.BTL NASAL (05:19)
[2021-06-16] MEDS: Polyethylene Glycol 3350 17 GM PACKET PO (05:19)
[2021-06-16 05:20] VITALS: BP 116/78; PULSE 79
[2021-06-16] MEDS: Metoprolol Tartrate 25 MG Tablet PO ×2 (05:20→17:24)
[2021-06-16] MEDS: dilTIAZem CD 240 MG Capsule PO (05:20)
[2021-06-16] MEDS: Nystatin Powder 15gm Bottle 1 APPLIC TOPICAL ×2 (05:20→17:25)
[2021-06-16] MEDS: levETIRAcetam 500 MG Tablet PO ×2 (05:20→17:24)
[2021-06-16] MEDS: Acetaminophen 500 MG Tablet 1000 MG PO ×3 (05:20→22:45)
[2021-06-16] MEDS: Senna/Docusate Sodium 1 Tablet 2 TABLET PO ×2 (05:20→17:24)
[2021-06-16] MEDS: Furosemide 20 MG Tablet PO (05:20)
[2021-06-16] MEDS: Menthol/Lanolin/Calamine/Znox 113 GM Tube 1 APPLIC TOPICAL ×2 (05:21→17:25)
[2021-06-16] MEDS: Gabapentin 100 MG Capsule PO ×3 (08:21→17:24)
[2021-06-16] MEDS: Multivitamins,Ther W-Minerals Tablet 1 TABLET PO (08:21)
[2021-06-16] MEDS: Iron Polysaccharide Complex 150 MG CAPSULE PO (08:21)
[2021-06-16] MEDS: traMADol 50 MG Tablet PO ×2 (10:18→22:46)
[2021-06-16 14:38] VITALS: BP 123/64; PULSE 82; RESP 18; TEMP 36.7; O2SAT 93
--- NOTE | 2021-06-16 15:22 | CASEMGMT ---
Social Work Son in to complete therapy family training this date. Pt/son and IDT agreeable to DC date 06/20. Pt denies HHC needs, agreeable to FWW. Provided script to son for bed rail in case pt decides she would like that once home. Therapy provided HEP for pt. Son to transport pt home. Referred to [facility] for FWW. Plan: DC home 06/20 with no HHC, FWW through [facility] KARI De DiosW
[2021-06-16] MEDS: morphine (oral solution) 10MG/0.5ML Syringe 10 MG PO (17:23)
[2021-06-16 17:24] VITALS: PULSE 82
[2021-06-16] MEDS: Rivaroxaban 20 MG Tablet PO (17:24)
--- NOTE | 2021-06-16 19:29 | PCM.DC.SUM ---
Providers Date of Admission: 05/13/21 Primary Care Physician: Diana Primary Care Phys Reason For Visit: RIGHT HIP FRACTURE Diagnosis Discharge Diagnosis (1) History of total right hip arthroplasty: Status: Acute Code(s): Z96.641 - Presence of right artificial hip joint (2) Closed intertrochanteric fracture of right hip: Status: Resolved Code(s): S72.141A - Displaced intertrochanteric fracture of right femur, initial encounter for closed fracture Qualifiers: Encounter type: initial encounter Fracture alignment: nondisplaced Qualified Code(s): S72.144A - Nondisplaced intertrochanteric fracture of right femur, initial encounter for closed fracture (3) Hypertension: Status: Chronic Code(s): I10 - Essential (primary) hypertension (4) Anxiety: Status: Chronic Code(s): F41.9 - Anxiety disorder, unspecified (5) Hyperlipidemia: Status: Chronic Code(s): E78.5 - Hyperlipidemia, unspecified (6) Debility: Status: Acute Code(s): R53.81 - Other malaise (7) Stroke: Status: Acute Code(s): I63.9 - Cerebral infarction, unspecified (8) Atrial fibrillation with rapid ventricular response: Status: Acute Code(s): I48.91 - Unspecified atrial fibrillation (9) Opioid dependence: Status: Acute Code(s): F11.20 - Opioid dependence, uncomplicated (10) Seizure disorder: Status: Acute Code(s): G40.909 - Epilepsy, unspecified, not intractable, without status epilepticus (11) Vitamin D deficiency: Status: Acute Code(s): E55.9 - Vitamin D deficiency, unspecified Medications at Discharge Home Medications Xarelto 20 mg PO DAILY 02/07/17 atorvastatin 40 mg PO QHS 02/07/17 diltiazem HCl 240 mg PO DAILY 02/07/17 levetiracetam 500 mg PO BID 02/07/17 furosemide 20 mg PO DAILY 05/10/21 losartan 50 mg PO DAILY 05/10/21 multivitamin,hq-sfah-izrczbta 1 tab PO DAILYCM 05/10/21 hydrocodone-acetaminophen 1 tab PO Q6H PRN 7 Days #28 tab 05/12/21 metoprolol tartrate 25 mg PO BID 05/13/21 nystatin 1 applic TOPICAL BID PRN PRN #0 g 05/13/21 sennosides-docusate sodium [Stool Softener-Stimulant Laxat] 2 tab PO BID 05/13/21 acetaminophen 1,000 mg PO Q8 #0 tab 06/16/21 gabapentin 100 mg PO TIDCM 30 Days #90 cap 06/16/21 lidocaine 1 patch TOPICAL QHS 30 Days ea 06/16/21 menthol-zinc oxide [Calmoseptine] 1 applic TOPICAL BID #0 g 06/16/21 morphine concentrate 10 mg PO Q4H PRN PRN 3 Days #9 ml 06/16/21 polyethylene glycol 3350 [HealthyLax] 17 g PO DAILY #0 ea 06/16/21 polysaccharide iron complex [Ferrex 150] 150 mg PO DAILYCM 30 Days #30 cap 06/16/21 tramadol 50 mg PO Q6H PRN PRN 7 Days #28 tab 06/16/21 Hospital Course Operations - (Right hip intramedullary nail fixation.) Procedures None Summary of Care Provided Minutes Spent on Discharge: 35 Hospital Course: 85 year old female with below past medical history hospitalized for right hip fracture, underwent right femur intramedullary nail fixation 05/12/[address] Lee, postoperative course complicated by hypotension, admitted to TCU with debility, here for rehabilitation, strengthening, prior to discharge home with family. Discharge home with son 06/20/2021, No Home Health Care, [employer]. Physical Exam Const alert and oriented x3 General Appearance: cooperative HEENT normocephalic Eyes PERRL and EOMs intact bilaterally Neck supple, no JVD and no carotid bruits Resp normal respiratory effort, normal air movement and clear to auscultation bilaterally Cardio regular rate and regular rhythm GI normal to inspection, nondistended, normoactive bowel sounds, non-tender and non-distended Extremity normal capillary refill General Extremity: Negative for edema Skin no rashes or lesions noted General Skin Exam: no breakdown Psych affect normal Appearance: appropriate Weight / BMI Weight Weight: 75.705 kg Body Mass Index (BMI) 30.2 ABG / Lab / Microbiology Data Result Diagrams: 06/11/21 05:35 06/11/21 05:35 Microbiology: Microbiology 05/21/21 18:36 Wound - Hip Gram Stain - Final 05/21/21 18:36 Wound - Hip Wound Culture - Final Enterococcus faecalis D/C Instructions Discharge Diet: No restrictions Discharge Activity: Return to Normal Activity, May Shower and Use Walker Weight Bearing Status: Weight bearing as tolerated Call your doctor if you observe: Fever of 101 or Higher, Inability to urinate, Inability to have a bowel movement, Shortness of breath, Dizziness, Fainting spells, Swelling in the ankles, Chest pain and Uncontrolled pain Additional Instructions: Discharge home with son 06/20/2021, No Home Health Care, [employer]. Please Follow Up With: Johann Lee MD When: As scheduled. Meaningful Use Info Meaningful Use Diagnoses (Choose all that apply): None applicable Discharge Plan Admission Admit Date/Time: 05/13/21 16:00 Primary Reason for Your Visit: Debility. Attending Provider: Mukund Peterson Chi Primary Care Provider: Care Physician,No Primary Instructions Additional Instructions / Restrictions: Discharge home with son 06/20/2021, No Home Health Care, [employer]. Discharge Orders/Prescriptions Prescriptions: New acetaminophen 500 mg Tablet 1,000 mg PO Q8 Qty: 0 RF: 0 polysaccharide iron complex [Ferrex 150] 150 mg iron Capsule 150 mg PO DAILYCM 30 Days Qty: 30 RF: 0 gabapentin 100 mg Capsule 100 mg PO TIDCM 30 Days Qty: 90 RF: 0 lidocaine 5 % Adhesive Patch,Medicated 1 patch topical QHS 30 Days RF: 0 menthol-zinc oxide [Calmoseptine] 0.44-20.6 % Ointment 1 applic topical BID Qty: 0 RF: 0 polyethylene glycol 3350 [HealthyLax] 17 gram Powder In Packet 17 g PO DAILY Qty: 0 RF: 0 morphine concentrate 10 mg/0.5 mL Syringe 10 mg PO Q4H PRN PRN (Reason: Pain Score 6-10) 3 Days Qty: 9 RF: 0 tramadol 50 mg Tablet 50 mg PO Q6H PRN PRN (Reason: Pain Score 6-10) 7 Days Qty: 28 RF: 0 Continued levetiracetam 500 MG tablet 500 mg PO BID RF: 0 diltiazem HCl 240 MG capsule 240 mg PO DAILY RF: 0 Xarelto 20 MG tablet 20 mg PO DAILY RF: 0 atorvastatin 80 MG tablet 40 mg PO QHS RF: 0 furosemide 20 mg Tablet 20 mg PO DAILY RF: 0 multivitamin,du-qjoi-dhxpstjm 1 TABLET tablet 1 tab PO DAILYCM RF: 0 nystatin 100,000 unit/gram Ointment 1 applic topical BID PRN PRN (Reason: skin issues) Qty: 0 RF: 0 sennosides-docusate sodium [Stool Softener-Stimulant Laxat] 8.6-50 mg tablet 2 tab PO BID RF: 0 metoprolol tartrate 25 mg tablet 25 mg PO BID RF: 0 No Action losartan 50 mg tablet 50 mg PO DAILY RF: 0 hydrocodone-acetaminophen 5-325 mg tablet 1 tab PO Q6H PRN (Reason: pain) 7 Days Qty: 28 RF: 0 Referrals / Follow Up: Care Physician,No Primary [Primary Care Provider] - Disposition Disposition (needs filled in before D/C Order can be placed): Home, Self Care
[2021-06-16] MEDS: Lidocaine 5% Patch 1 PATCH TOPICAL (22:44)
[2021-06-16] MEDS: Atorvastatin Calcium 40 MG Tablet PO (22:45)
[2021-06-17 06:14] VITALS: BP 129/70; PULSE 84
[2021-06-17] MEDS: Senna/Docusate Sodium 1 Tablet 2 TABLET PO ×2 (06:14→17:35)
[2021-06-17] MEDS: levETIRAcetam 500 MG Tablet PO ×2 (06:14→17:35)
[2021-06-17] MEDS: Furosemide 20 MG Tablet PO (06:14)
[2021-06-17] MEDS: dilTIAZem CD 240 MG Capsule PO (06:14)
[2021-06-17] MEDS: Metoprolol Tartrate 25 MG Tablet PO ×2 (06:14→17:35)
[2021-06-17] MEDS: Acetaminophen 500 MG Tablet 1000 MG PO ×3 (06:14→21:34)
[2021-06-17] MEDS: traMADol 50 MG Tablet PO ×2 (06:15→21:36)
[2021-06-17] MEDS: Nystatin Powder 15gm Bottle 1 APPLIC TOPICAL ×2 (06:15→18:58)
[2021-06-17] MEDS: Menthol/Lanolin/Calamine/Znox 113 GM Tube 1 APPLIC TOPICAL ×2 (06:15→18:58)
[2021-06-17] MEDS: Gabapentin 100 MG Capsule PO ×3 (08:14→17:35)
[2021-06-17] MEDS: Multivitamins,Ther W-Minerals Tablet 1 TABLET PO (08:15)
[2021-06-17] MEDS: Iron Polysaccharide Complex 150 MG CAPSULE PO (08:15)
[2021-06-17 15:26] VITALS: BP 114/72; PULSE 74; RESP 18; TEMP 36.4; O2SAT 97
[2021-06-17 17:35] VITALS: PULSE 74
[2021-06-17] MEDS: Rivaroxaban 20 MG Tablet PO (17:35)
[2021-06-17] MEDS: LORazepam 0.5 MG Tablet 0.25 MG PO (19:00)
[2021-06-17] MEDS: Lidocaine 5% Patch 1 PATCH TOPICAL (21:33)
[2021-06-17] MEDS: Atorvastatin Calcium 40 MG Tablet PO (21:35)
[2021-06-18] MEDS: LORazepam 0.5 MG Tablet 0.25 MG PO (02:36)
[2021-06-18] MEDS: Menthol/Lanolin/Calamine/Znox 113 GM Tube 1 APPLIC TOPICAL ×2 (05:53→17:50)
[2021-06-18] MEDS: traMADol 50 MG Tablet PO (05:53)
[2021-06-18 05:55] VITALS: BP 138/78; PULSE 106
[2021-06-18] MEDS: dilTIAZem CD 240 MG Capsule PO (05:55)
[2021-06-18] MEDS: Acetaminophen 500 MG Tablet 1000 MG PO ×3 (05:55→20:59)
[2021-06-18] MEDS: levETIRAcetam 500 MG Tablet PO ×2 (05:55→17:50)
[2021-06-18] MEDS: Furosemide 20 MG Tablet PO (05:55)
[2021-06-18] MEDS: Metoprolol Tartrate 25 MG Tablet PO ×2 (05:55→17:51)
[2021-06-18] MEDS: Senna/Docusate Sodium 1 Tablet 2 TABLET PO ×2 (05:55→17:51)
[2021-06-18] MEDS: Nystatin Powder 15gm Bottle 1 APPLIC TOPICAL ×2 (05:56→17:52)
[2021-06-18 06:00] LABS: Absolute Lymphocyte Count 1.15 X10^3/uL (0.83-4.51); Absolute Neutrophil Count 2.5 X10^3/uL (2.0-7.7); Basophil# 0.02 X10^3/uL; Basophil% 0.5 % (0-1); Eosinophil# 0.15 X10^3/uL; Eosinophils% 3.5 % (0-5); Hematocrit 34.9 % (37-47); Hemoglobin 10.9 g/dL (12.0-15.0); Lymphocyte # 1.15 X10^3/ul (0.83-4.51); Lymphocyte % 26.8 % (19-41); Mean Corp Hgb Conc 31.2 g/dL (32-36); Mean Corpuscular Hgb 37.2 pg (27.0-32.0); Mean Corpuscular Volume 119.1 fL (81-99); Mean Platelet Vol. 9.7 fl (6.2-12.0); Monocyte# 0.43 X10^3/uL; NRBC Flagged by Analyzer 0 % (0-5); Neutrophil # 2.53 X10^3/uL (2.7-7.7); POSITIVE MORPHOLOGY YES; Platelet Count 215 K/mm3 (150-450); RBC Distribution Width CV 15.5 % (11.6-14.6); Red Blood Count 2.93 M/mm3 (4.2-5.4); White Blood Count 4.3 K/mm3 (4.4-11.0)
[2021-06-18 06:07] LABS: Differential Indicated SCAN CRITERIA MET
[2021-06-18 06:27] LABS: Anisocytosis 1+
[2021-06-18 06:29] LABS: Anion Gap 2 (5-15); BUN 21 mg/dL (7-18); BUN/Creat Ratio 35.2 RATIO (10-20); Calcium,Total 8.5 mg/dL (8.5-10.1); Chloride 107 mmol/L (98-107); EST Glomerular Filtration Rate 101 mL/min (>60); Est Glom Filt Rate - Afr Amer 123 mL/min (>60); Estimated Creatinine Clearance 31.94 ml/min; Glucose 104 mg/dL (74-106); Potassium 3.5 mmol/L (3.5-5.1); Sodium Level 143 mmol/L (136-145)
[2021-06-18 06:56] VITALS: O2SAT 81; O2SAT 94
[2021-06-18] MEDS: Iron Polysaccharide Complex 150 MG CAPSULE PO (09:03)
[2021-06-18] MEDS: Gabapentin 100 MG Capsule PO ×3 (09:03→17:50)
[2021-06-18] MEDS: Multivitamins,Ther W-Minerals Tablet 1 TABLET PO (09:04)
[2021-06-18 10:20] VITALS: PULSE 88; RESP 18; O2SAT 92
[2021-06-18 12:24] VITALS: BP 101/57; PULSE 70; RESP 14; TEMP 36.3; O2SAT 96
[2021-06-18 17:48] VITALS: BP 128/72; PULSE 89
[2021-06-18] MEDS: Rivaroxaban 20 MG Tablet PO (17:50)
[2021-06-18 17:51] VITALS: BP 128/72; PULSE 89
[2021-06-18] MEDS: Lidocaine 5% Patch 1 PATCH TOPICAL (20:59)
[2021-06-18] MEDS: Atorvastatin Calcium 40 MG Tablet PO (20:59)
[2021-06-19 04:47] VITALS: BP 139/78; PULSE 108
[2021-06-19] MEDS: Furosemide 20 MG Tablet PO (04:47)
[2021-06-19] MEDS: Sodium Chloride 0.65% 1 SPRAY SPRAY.BTL NASAL (04:47)
[2021-06-19] MEDS: Metoprolol Tartrate 25 MG Tablet PO ×2 (04:47→17:47)
[2021-06-19] MEDS: Acetaminophen 500 MG Tablet 1000 MG PO ×3 (04:48→22:21)
[2021-06-19] MEDS: Senna/Docusate Sodium 1 Tablet 2 TABLET PO ×2 (04:48→17:48)
[2021-06-19] MEDS: levETIRAcetam 500 MG Tablet PO ×2 (04:48→17:48)
[2021-06-19] MEDS: dilTIAZem CD 240 MG Capsule PO (04:48)
[2021-06-19] MEDS: Polyethylene Glycol 3350 17 GM PACKET PO (04:50)
[2021-06-19] MEDS: traMADol 50 MG Tablet PO ×3 (04:54→22:22)
[2021-06-19] MEDS: Nystatin Powder 15gm Bottle 1 APPLIC TOPICAL ×2 (07:58→22:19)
[2021-06-19] MEDS: Menthol/Lanolin/Calamine/Znox 113 GM Tube 1 APPLIC TOPICAL ×2 (07:59→22:19)
[2021-06-19] MEDS: Gabapentin 100 MG Capsule PO ×3 (08:00→17:47)
[2021-06-19] MEDS: Multivitamins,Ther W-Minerals Tablet 1 TABLET PO (08:00)
[2021-06-19] MEDS: Iron Polysaccharide Complex 150 MG CAPSULE PO (08:00)
[2021-06-19 08:05] VITALS: O2SAT 81
--- NOTE | 2021-06-19 09:03 | CASEMGMT ---
Social Work BIMS and PHQ-9 completed for MDS assessment. Jesusita Moreno, [employer] COLLECTION ANALYST
--- NOTE | 2021-06-19 12:47 | MDS.RN ---
Completed pain interview for jaquan 06/20/21.
[2021-06-19 14:51] VITALS: BP 110/66; PULSE 105; RESP 16; TEMP 36.7; O2SAT 97
[2021-06-19 17:47] VITALS: BP 110/66; PULSE 105
[2021-06-19] MEDS: Rivaroxaban 20 MG Tablet PO (17:47)
[2021-06-19 22:00] VITALS: PULSE 107; O2SAT 90
[2021-06-19] MEDS: Lidocaine 5% Patch 1 PATCH TOPICAL (22:19)
[2021-06-19] MEDS: Atorvastatin Calcium 40 MG Tablet PO (22:21)
[2021-06-20] MEDS: Furosemide 20 MG Tablet PO (05:33)
[2021-06-20] MEDS: levETIRAcetam 500 MG Tablet PO (05:33)
[2021-06-20] MEDS: Acetaminophen 500 MG Tablet 1000 MG PO (05:33)
[2021-06-20] MEDS: dilTIAZem CD 240 MG Capsule PO (05:34)
[2021-06-20] MEDS: traMADol 50 MG Tablet PO (05:34)
[2021-06-20] MEDS: Menthol/Lanolin/Calamine/Znox 113 GM Tube 1 APPLIC TOPICAL (05:35)
[2021-06-20] MEDS: Nystatin Powder 15gm Bottle 1 APPLIC TOPICAL (05:35)
[2021-06-20] MEDS: Senna/Docusate Sodium 1 Tablet 2 TABLET PO (05:35)
[2021-06-20 05:36] VITALS: BP 135/73; PULSE 101
[2021-06-20] MEDS: Metoprolol Tartrate 25 MG Tablet PO (05:36)
[2021-06-20] MEDS: Multivitamins,Ther W-Minerals Tablet 1 TABLET PO (08:41)
[2021-06-20] MEDS: Gabapentin 100 MG Capsule PO (08:42)
[2021-06-20] MEDS: Iron Polysaccharide Complex 150 MG CAPSULE PO (08:42)
[2021-06-20 09:22] VITALS: O2SAT 96
[2021-06-20 09:40] VITALS: BP 116/67; PULSE 92; RESP 18; TEMP 36.4; O2SAT 92
[2021-06-20 13:52] VITALS: O2SAT 92
== END 2021-06-20 10:00 | disposition home or self-care (01) | DRG 560 ==
PROVIDERS: Admitting Provider Family Medicine Geriatric Medicine; Visit Provider Family Medicine Geriatric Medicine
DX: S72.001D Fracture of unspecified part of neck of right femur, subsequent encounter for closed fracture with routine healing (principal); F11.20 Opioid dependence, uncomplicated; W19.XXXD Unspecified fall, subsequent encounter; Z23 Encounter for immunization; I48.91 Unspecified atrial fibrillation; G89.29 Other chronic pain; I10 Essential (primary) hypertension; E78.5 Hyperlipidemia, unspecified; G40.909 Epilepsy, unspecified, not intractable, without status epilepticus; B35.4 Tinea corporis; F41.9 Anxiety disorder, unspecified; Z99.81 Dependence on supplemental oxygen; Z79.899 Other long term (current) drug therapy; Z79.01 Long term (current) use of anticoagulants; D50.9 Iron deficiency anemia, unspecified
CPT/HCPCS: 36415; 71046; 72110; 74018; 80048; 85014; 85018; 85025; 87070; 87077; 87186; 87205; 87635; 93005; 93971; 97110; 97116; 97162; 97166; 97530; 97535; 97802; 99251; G0009; J7030; U0005; 90670; A4216; G0463; U0003

== ENCOUNTER → 2021-06-12 13:17 | Outpatient (CLI) | payer MEDICARE, OTHER, SELFPAY ==
--- NOTE | 2021-06-12 13:22 | VDLE_ITS ---
Reason For Study: Swelling RIGHT LEFT GSV is normal. CFV is compressible, spontaneous, phasic, CFV is compressible, spontaneous, phasic, competent, and demonstrates normal competent and demonstrates normal augmentation. augmentation. FV is compressible, spontaneous, phasic, competent and demonstrates normal augmentation. POP V is compressible, spontaneous, phasic, competent and demonstrates normal augmentation. T/P Trunk is compressible. PTV is compressible. RT PerV is compressible. Procedure This is a venous duplex using B-mode, color flow and spectral Doppler. Exam performed portable in patient room. A preliminary report was called and/or faxed to JANIA Gavin. VL/Venous Duplex US, Unilateral Interpretation Summary Deep veins of the right lower extremity are patent and compressible segmentally . There is no evidence of right lower extremity deep vein thrombosis. Valvular competence uri ears intact within the proximal deep venous system on the right . The right great saphenous vein a ppears patent and compressible segmentally. Ordering Physician: Mukund Peterson Chi Referring Physician: Mukund Peterson Chi Performed By: Angelita Robles, RITACS, RVT
== END ==
PROVIDERS: Referring Provider Family Medicine Geriatric Medicine; Visit Provider Family Medicine Geriatric Medicine
DX: M79.89 Other specified soft tissue disorders (principal); R22.41 Localized swelling, mass and lump, right lower limb
CPT/HCPCS: 93971